=== PATIENT | female | born 2000 | race Caucasian/White ===

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

== ENCOUNTER 2021-01-16 12:20 | Outpatient (CLI) | payer OTHER, SELFPAY ==
[2021-01-16 12:53] LABS: Fetal Membrane Rupture (Rapid) Negative (Negative)
[2021-01-16 12:54] LABS: Microscopic, Urine URINE MICROSCOPIC (MICROSCOPIC)
[2021-01-16 12:57] LABS: Appearance,Urine CLEAR (Clear); Bilirubin,Urine Negative (Negative); Blood, Urine Negative (Negative); Color,Urine YELLOW (Yellow); Glucose,Urine (UA) Negative (Negative); Ketones,Urine Negative (Negative); Leukocyte Esterase,Urine Negative (Negative); Nitrate,Urine Negative (Negative); PH,Urine 7.5 (5.0-8.5); Protein,Urine Negative (Negative); Urobilinogen,Urine 0.2 EU/dl (0.2)
[2021-01-16 13:05] VITALS: BP 119/71; PULSE 92; RESP 20; TEMP 36.7; O2SAT 97
[2021-01-16 13:08] LABS: Benzodiazepines Screen,Urine Negative ng/ml (<200)
[2021-01-16 13:09] LABS: Amphetamine/Metha Screen,Urine Negative ng/ml (<1000); Bacteria,Urine Trace /lpf; Barbiturates Screen,Urine Negative ng/ml (<200); RBC,Urine Occasional #/hpf (0-3)
[2021-01-16 13:10] LABS: Cannabinoid Screen,Urine Negative ng/ml (<50)
[2021-01-16 13:11] LABS: Cocaine Screen,Urine Negative ng/ml (<300); Methadone Screen,Urine Negative ng/ml (<300)
[2021-01-16 13:12] LABS: Opiate Screen,Urine Negative ng/ml (<300); Phencyclidine Screen,Urine Negative ng/ml (<25)
== END 2021-01-16 15:41 | disposition home or self-care (01) ==
LOC: OBOUT 12:21 → OB 12:22
PROVIDERS: Nurse Practitioner Obstetrics & Gynecology; Physical Medicine & Rehabilitation; PCP Emergency Medicine; Visit Provider Obstetrics & Gynecology
DX: O26.892 Other specified pregnancy related conditions, second trimester (principal); Z3A.26 26 weeks gestation of pregnancy; R10.30 Lower abdominal pain, unspecified
CPT/HCPCS: 59025; 80305; 81001; 84112; 96365; G0463

== ENCOUNTER → 2021-01-17 12:13 | Outpatient (CLI) | payer OTHER, SELFPAY ==
[2021-01-17 12:41] LABS: Glucose,Fasting 84 mg/dl (74-100)
[2021-01-17 14:18] LABS: Glucose 1 Hour 131 mg/dL (74-100)
== END ==
PROVIDERS: Visit Provider Nurse Practitioner Obstetrics & Gynecology
DX: Z34.90 Encounter for supervision of normal pregnancy, unspecified, unspecified trimester (principal); Z3A.26 26 weeks gestation of pregnancy
CPT/HCPCS: 36415; 82951

== ENCOUNTER 2021-02-16 20:19 | Outpatient (CLI) | payer OTHER, SELFPAY ==
[2021-02-16 20:34] VITALS: BMI 20.2
[2021-02-16 20:44] LABS: Microscopic, Urine URINE MICROSCOPIC (MICROSCOPIC)
[2021-02-16 20:46] LABS: Appearance,Urine CLOUDY (Clear); Bilirubin,Urine Negative (Negative); Blood, Urine Negative (Negative); Color,Urine YELLOW (Yellow); Glucose,Urine (UA) Negative (Negative); Ketones,Urine TRACE (Negative); Leukocyte Esterase,Urine TRACE (Negative); Nitrate,Urine Negative (Negative); Protein,Urine Negative (Negative)
[2021-02-16 20:50] LABS: Amorphous Sediment,Urine 4+ /lpf; Squamous Epithelial Cell,Urine 20-50 #/hpf (0-5)
[2021-02-16 20:54] VITALS: BP 116/75; PULSE 97; RESP 18; TEMP 36.7; O2SAT 96; BMI 20.2
[2021-02-16 21:01] LABS: Barbiturates Screen,Urine Negative ng/ml (<200)
[2021-02-16 21:02] LABS: Benzodiazepines Screen,Urine Negative ng/ml (<200)
[2021-02-16 21:03] LABS: Amphetamine/Metha Screen,Urine Negative ng/ml (<1000); Cannabinoid Screen,Urine Negative ng/ml (<50)
[2021-02-16 21:04] LABS: Cocaine Screen,Urine Negative ng/ml (<300)
[2021-02-16 21:05] LABS: Methadone Screen,Urine Negative ng/ml (<300); Opiate Screen,Urine Negative ng/ml (<300)
[2021-02-16 21:06] LABS: Phencyclidine Screen,Urine Negative ng/ml (<25)
== END 2021-02-16 22:40 | disposition home or self-care (01) ==
LOC: OBOUT 20:19 → OB 20:20
PROVIDERS: Visit Provider Nurse Practitioner Obstetrics & Gynecology
DX: O26.893 Other specified pregnancy related conditions, third trimester (principal); Z3A.30 30 weeks gestation of pregnancy; M54.50 Low back pain, unspecified
CPT/HCPCS: 59025; 80305; 81001; 96365; G0463; J0595

== ENCOUNTER 2021-03-19 07:18 | Emergency (ER) | payer OTHER, SELFPAY ==
[2021-03-19 07:19] VITALS: BP 136/82; PULSE 115; RESP 16; TEMP 36.8; O2SAT 96; BMI 20.6
--- NOTE | 2021-03-19 07:27 | PC.NURSE ---
Patient ambulatory to restroom
[2021-03-19 07:50] LABS: Microscopic, Urine URINE MICROSCOPIC (MICROSCOPIC)
[2021-03-19 07:52] LABS: Appearance,Urine CLEAR (Clear); Bilirubin,Urine Negative (Negative); Blood, Urine Negative (Negative); Color,Urine YELLOW (Yellow); Glucose,Urine (UA) Negative (Negative); Ketones,Urine Negative (Negative); Leukocyte Esterase,Urine Negative (Negative); Nitrate,Urine Negative (Negative); PH,Urine 7.5 (5.0-8.5); Protein,Urine Negative (Negative); Urobilinogen,Urine 0.2 EU/dl (0.2)
[2021-03-19 07:54] LABS: Influenza A, PCR Not Detected (NotDetected); Influenza B, PCR Not Detected (NotDetected)
[2021-03-19 07:58] VITALS: BP 119/86; PULSE 89; O2SAT 95
--- NOTE | 2021-03-19 08:02 | HMH.EDGENADL ---
ED Disposition Clinical Impression: Bronchitis, Viral infection Disposition: Home, Self-Care Condition on Discharge: Good Referrals: Orville Spann MD [Primary Care Provider] - - Critical Care Critical Care Time: No Attestation: On 03/19/21, the high probability of a clinically significant, sudden or life threatening deterioration of the following system(s) required my full and direct attention, intervention and personal management. The time I documented below is in addition to time spent performing reported procedures but includes the following listed in this critical care notation. Medical Decision Making - Medical Records Medical records reviewed: Yes: I reviewed the patient's medical records. - Colt Inquiry Pt receiving controlled substance: No Vital Signs: 03/19/21 07:19 03/19/21 07:58 Temperature 98.2 F Temperature Source Oral Pulse Rate 89 Pulse Rate [Right Brachial] 115 H Respiratory Rate 16 Blood Pressure 119/86 Blood Pressure [Right Arm] 136/82 Blood Pressure Mean [Right Arm] 100 Blood Pressure Source [Right Arm] Automatic Cuff Blood Pressure Position [Right Arm] Sitting 02 Sat by Pulse Oximetry 96 95 Oxygen Delivery Method Room Air Room Air - Lab Data Lab Results 03/19/21 07:25: SARS-CoV-2 (PCR) Detected A, Influenza A Untype (PCR) Not detected, Influenza Type B (PCR) Not detected 03/19/21 07:40: Urine Color Yellow, Urine Appearance Clear, Urine pH 7.5, Ur Specific [place] 1.010, Urine Protein Negative, Urine Glucose (UA) Negative, Urine Ketones Negative, Urine Blood Negative, Urine Nitrate Negative, Urine Bilirubin Negative, Urine Urobilinogen 0.2, Ur Leukocyte Esterase Negative, Urine RBC None, Urine WBC 3-5, Ur Squamous Epith Cells 3-5, Urine Bacteria None General Adult HPI - General Chief complaint: Upper Respiratory Infection Stated complaint: cough, chest congestion, 34 wks Time Seen by Provider: 03/19/21 08:03 Mode of Arrival: Ambulatory Limitations: No Limitations Description of Symptoms (Recalled from ER Triage Doc. by RN): Pt advises she is 34 weeks and has been coughing for 3 days. Denies any fever, chills,aches, congestions. 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, 34 wks preg Onset (ago): day(s) Radiation: non-radiation Consistency: intermittent Relieving factors: none Exacerbating factors: none Associated symptoms: denies other symptoms - Related Data Home Medications Medication Instructions Recorded Confirmed labetalol 200 mg tablet 200 mg PO tab 12/20/20 03/15/21 vits no.130-ferrous fum 1 tab PO tab 12/20/20 03/15/21 27 mg iron-folic acid 800 mcg tablet Previous Rx's Medication Instructions Recorded fluconazole 100 mg tablet 100 mg PO DAILY #3 tab 12/12/20 famotidine 20 mg tablet 20 mg PO DAILY #90 tab 01/31/21 ferrous sulfate 325 mg (65 mg 325 mg PO DAILY #30 tab 02/15/21 iron) tablet ondansetron 4 mg disintegrating 4 mg PO Q6H PRN #30 tab 02/15/21 tablet promethazine 12.5 mg tablet 12.5 mg PO Q6H PRN #30 tab 02/15/21 labetalol 200 mg tablet See Rx Instructions .ROUTE 03/01/21 .COMPLEX #30 tab methylprednisolone 4 mg tablets in See Rx Instructions PO PER PKG DIR 03/01/21 a dose pack #21 tab Allergies Allergy/AdvReac Type Severity Reaction Status Date / Time No Known Allergies Allergy Verified 03/15/21 10:41 [facility] History - Hepatitis A Screen Drug use history?: No High risk sexual behaviors?: No History of sexually transmitted infection?: No Currently employed?: No Childcare worker?: No Do you have indoor plumbing?: Yes Do you have electricity?: Yes Attestation statement:: This patient has been screened for Hepatitis A risk factors. Medical History: Reports:: Palpitations Denies:: Cancer, Diabetes Mellitus Type 1, Diabetes Mellitus Type 2, MRSA, Seizures Other Medical History: Reports: Unexplained Bleeding Other [place]
[2021-03-19 08:24] LABS: Coronavirus 19, PCR Detected (NotDetected)
--- NOTE | 2021-03-19 08:29 | PC.NURSE ---
FHT 160
[2021-03-19 08:58] VITALS: BP 117/78; PULSE 96; RESP 20; TEMP 36.8; O2SAT 97
== END 2021-03-19 09:00 | disposition home or self-care (01) ==
PROVIDERS: Emergency Provider Emergency Medicine; PCP Emergency Medicine
DX: U07.1 COVID-19 (principal); J20.9 Acute bronchitis, unspecified; Z3A.34 34 weeks gestation of pregnancy
CPT/HCPCS: 81001; 99282; C9803; U0003; U0005

== ENCOUNTER → 2021-03-27 10:37 | Outpatient (CLI) | payer OTHER, SELFPAY ==
--- NOTE | 2021-03-27 10:46 | US_ITS ---
FINAL REPORT CLINICAL HISTORY: sga-- bpp and growth FINDINGS: There is a single live intrauterine gestation. Presentation is cephalic. The cervix is closed and measures 2.9 cm. Placenta is posterior/fundal grade 1-2. Cardiac activity is confirmed at 132 bpm. Four-chamber heart is noted. Chest and diaphragm are unremarkable. ABDOMEN: Both kidneys are unremarkable. Stomach is unremarkable. MARIEL: 7 cm MEASUREMENTS: ULTRASOUND AGE: 34 weeks 2 days. GESTATION AGE: 36 weeks 0 days. ESTIMATED WEIGHT: 2211 g GROWTH PERCENTILE: 5% BPD: 8.9 cm consistent with 35 weeks 6 days. OFD: 10.7 cm consistent with 33 weeks 6 days. HC: 30.8 cm consistent with 34 weeks 3 days. AC: 28.8 cm consistent with 32 weeks 6 days. FL: 6.5 cm consistent with 33 weeks 5 days. HC/AC: 1.07 CI: 83% FL/BPD: 74% FL/AC: 23% BREATHIN/2 MOVEMENT: 2/2 TONE: 2/2 FLUID VOLUME: 2/2 BPP SCORE: 8/8 IMPRESSION: Single living IUP with an ultrasound age of 34 weeks 2 days. BPP SCORE: 8/8 Reviewed, Interpreted and Dictated by Edinson Caldwell III, MD Transcribed by Kristen Odell Authenticated by Edinson Caldwell III, MD on 03/27/2021 02:32:20 PM [facility]
== END ==
PROVIDERS: PCP Emergency Medicine; Visit Provider Nurse Practitioner Obstetrics & Gynecology
DX: O36.5990 Maternal care for other known or suspected poor fetal growth, unspecified trimester, not applicable or unspecified (principal)
CPT/HCPCS: 76805; 76819

== ENCOUNTER → 2021-04-02 11:26 | Outpatient (CLI) | payer OTHER, SELFPAY | PROVIDERS: Visit Provider Nurse Practitioner Obstetrics & Gynecology | DX: Z34.90 Encounter for supervision of normal pregnancy, unspecified, unspecified trimester (principal) | CPT/HCPCS: 86403 ==

== ENCOUNTER 2021-04-11 05:02 | Inpatient (IN) | payer OTHER, SELFPAY ==
[2021-04-11 05:06] VITALS: BMI 20.9
[2021-04-11 05:58] LABS: Microscopic, Urine URINE MICROSCOPIC (MICROSCOPIC)
[2021-04-11 05:58] LABS: Influenza A, PCR Not Detected (NotDetected); Influenza B, PCR Not Detected (NotDetected)
[2021-04-11 06:15] LABS: Basophils % 0.4 % (0.1-2.0); Eosinophils # 0.1 K/mm3 (0.0-0.4); Eosinophils % 0.7 % (0.1-12.0); Hematocrit 38.3 % (37.0-47.0); Hemoglobin 13.4 g/dL (12.2-16.2); Lymphocytes # 1.9 K/mm3 (0.7-4.5); Mean Corpuscular HGB Conc 34.9 g/dL (31.8-35.4); Mean Corpuscular Hemoglobin 31.2 pg (27.0-31.2); Mean Corpuscular Volume 89.4 fl (81-99); Mean Platelet Volume 8.3 fl (7.4-10.4); Monocytes # 0.6 K/mm3 (0.1-1.0); Monocytes % 6.1 % (1.7-9.3); Neutrophils # 6.9 K/mm3 (1.8-7.8); Neutrophils % 72.8 % (37.0-80.0); Platelet Count 314 K/mm3 (142-424); Red Blood Count 4.29 M/mm3 (4.20-5.40); Red Cell Distribution Width 13.5 % (11.5-17.5); White Blood Count 9.5 K/mm3 (4.5-13.0)
[2021-04-11 06:17] LABS: Appearance,Urine CLEAR (Clear); Bilirubin,Urine Negative (Negative); Blood, Urine Negative (Negative); Color,Urine YELLOW (Yellow); Glucose,Urine (UA) Negative (Negative); Ketones,Urine Negative (Negative); Leukocyte Esterase,Urine Negative (Negative); Nitrate,Urine Negative (Negative); Protein,Urine TRACE (Negative); Specific Gravity, Urine >= 1.030 (1.005-1.030); Urobilinogen,Urine 0.2 EU/dl (0.2)
[2021-04-11 06:30] VITALS: BP 123/83; PULSE 116; RESP 18; TEMP 36.8; O2SAT 96; BMI 20.9
[2021-04-11 06:41] LABS: Calcium Oxalate Crystals,Urine Trace /lpf
[2021-04-11 06:42] LABS: Coronavirus 19, PCR Detected (NotDetected)
[2021-04-11 06:43] LABS: Amphetamine/Metha Screen,Urine Negative ng/ml (<1000)
[2021-04-11 06:44] LABS: Barbiturates Screen,Urine Negative ng/ml (<200)
[2021-04-11 06:45] LABS: Benzodiazepines Screen,Urine Negative ng/ml (<200); Cannabinoid Screen,Urine Negative ng/ml (<50)
[2021-04-11 06:46] LABS: Cocaine Screen,Urine Negative ng/ml (<300)
[2021-04-11 06:47] LABS: Methadone Screen,Urine Negative ng/ml (<300)
[2021-04-11 06:48] LABS: Opiate Screen,Urine Negative ng/ml (<300); Phencyclidine Screen,Urine Negative ng/ml (<25)
[2021-04-11 07:49] VITALS: BP 131/77; PULSE 91; RESP 17; TEMP 36.5; O2SAT 95
--- NOTE | 2021-04-11 09:16 | HMH.LABNOT ---
Labor Note - Subjective: Date: 04/11/21 Time: 09:16 regular contraction - Objective: NST:: Reactive Contractions:: every 2-3 minutes Cervical Dilation:: 2-3 Effacement:: 90% Station: -1 Membranes: artificially ruptured - Fetus: Monitoring?: Yes monitoring type:: External - Assessment: Labor progressing?: Yes Cephalopelvic disproportion?: No Patient Problems: All Active Problems Atypical chest pain (Acute) Reactive airway disease with acute exacerbation (Acute) (Acute) Bronchitis (Acute) Viral infection (Acute) COVID-19 (Acute) Small for gestational age fetus (Acute) Sinoatrial billie reentrant tachycardia (Acute) SVT (supraventricular tachycardia) (Acute) Exposure to COVID-19 virus (Acute) Syncope (Acute) Abnormal echocardiogram (Acute) Dizziness (Acute) Near syncope (Acute) Palpitations (Acute) Tachycardia (Acute) Abnormal ECG (Acute) Acute bronchitis (Acute) - Plan: Anesthesia for epidural?: No Continue to labor down?: Yes Plan for ?: No Continue to monitor?: Yes Start pushing?: No Continue pushing?: No Comment:: I ruptured her membranes and there was clear fluid. The cervix is 2 to 3 cm and thinned out. We will expect a vaginal delivery.
--- NOTE | 2021-04-11 09:19 | HMH.OBAPHP ---
OB - H&P: HPI Antepartum - History of Present Illness Chief complaint: Small for gestational age baby, Covid History of present illness: She is a 20-year-old 1 para 0 at 38+ weeks gestational age. She has a small for gestational age infant. It is around the 10th centile. As result of that we are electing to deliver her at 38 weeks. She also has tested positive for COVID. She did test positive about a month ago. I suspect she has residual Covid positive but we are treating her as a new Covid positive. She is group B streptococcus positive as well. - History of Present Criteria for establishing EDC:: LMP confirmed by 1st trimester US care: good care Ultrasounds: normal 1st trimester US, normal mid trimester US Obstetrical complications: growth restriction - Labs Blood type: O (+) positive Rubella: immune RPR/VDRL: nonreactive GBS status: positive HBsAG: negative [facility] History I have reviewed the patient's past medical history: Yes Medical History: Reports:: Palpitations Denies:: Cancer, Diabetes Mellitus Type 1, Diabetes Mellitus Type 2, MRSA, Seizures *Have you ever received a pneumonia vaccine?: No *Have you received a flu vaccine this season?: No Other Medical History: Reports: Unexplained Bleeding Other Surgeries: Yes: No Previous Surgery. No: Amputation: No Fractures: No - *Social History Smoking Status: Never smoker Tobacco Type: e-cigarettes # Packs/Day (cigarettes): 2 Alcohol Intake: never Alcohol Intake Frequency:: other Substance Use Type: denies use *Occupational Status:: unemployed Housing: house Household Members: significant other *Travel in the last 8 weeks: None Family Hx:: Unable to obtain Para: 0 Review of Systems - Review of Systems Review of systems:: pertinent systems reviewed and negative unless documented below Meds Home Medications Medication Instructions Recorded Confirmed Type labetalol 200 mg tablet 100 mg PO BID tab 12/20/20 04/11/21 History vits no.130-ferrous fum 1 tab PO DAILY tab 12/20/20 04/11/21 History 27 mg iron-folic acid 800 mcg tablet promethazine 12.5 mg tablet 12.5 mg PO Q6H PRN #30 tab 02/15/21 04/11/21 Rx RX: Famotidine [Acid Batch Operator] 20 mg PO DAILY 04/11/21 04/11/21 History RX: Ferrous Sulfate 325 mg PO DAILY 04/11/21 04/11/21 History Allergies Allergy/AdvReac Type Severity Reaction Status Date / Time No Known Allergies Allergy Verified 04/09/21 10:19 OB - H&P: Exam - Physical Exam Vital signs: Temp Pulse Resp BP Pulse Ox 97.7 F 91 H 17 131/77 95 04/11/21 07:49 04/11/21 07:49 04/11/21 07:49 04/11/21 07:49 04/11/21 07:49 - Constitutional no acute distress - Routine HEENT Exam Head: Present: normocephalic Eye: Present: EOMI, PERRL ENT: Present: mucous membranes moist - Routine Neck Exam Present: supple, full ROM - Routine Respiratory Exam Absent: accessory muscle use (good air entry bilaterally), respiratory distress, wheezes, crackles - Routine Cardiovascular Exam Present: RRR. Absent: murmur - Routine Abdominal Exam Present: soft, normoactive bowel sounds. Absent: tenderness, distended, guarding - Routine Rectal Exam Patient deferred: visual exam, digital exam - Routine Exam Patient deferred: external exam, groin exam, perineal exam - Routine Extremities Exam Present: full ROM. Absent: cyanosis, edema - Routine Skin Exam Present: intact. Absent: cyanosis - Routine Neurological Exam Present: alert, oriented X3 - Routine Psychiatric Exam Present: normal affect OB - Results - Labs Labs: Short CBC 04/11/21 Range/Units 05:45 WBC 9.5 (4.5-13.0) K/mm3 Hgb 13.4 (12.2-16.2) g/dL Hct 38.3 (37.0-47.0) % Plt Count 314 (142-424) K/mm3 Urine 04/11/21 Range/Units 05:45 Urine Color Yellow (Yellow) Urine Appearance Clear (Clear) Urine pH 6.0 (5.0-8.5) Ur Specific [place] >= 1.03
--- NOTE | 2021-04-11 09:56 | P.PN_ITS ---
[facility] Anesthesia Checklist - Patient Identification Patient Identification: Arm Band - Structural Data Admitted From: Inpatient Planned Operative Procedure/s: Labor Epidural Consent for Planned Operative Procedure(s) Verified: Yes Verified Documents: Surgical Consent, History and Physical - NPO Status Verified Time NPO: 00:00 - Additional verifications Anesthesia Reactions: No - Airway Assessment C-Spine Mobility Assessed: Yes TMJ Mobility Assessed: Yes Dentition: Good Dentition - Neurological Assessment Level of Consciousness: Awake, Alert - Anesthesia Plan Anesthesia Risk discussed: Yes Anesthesia Plan: Verified ASA Class: II Anesthesia Type: Epidural [facility] History I have reviewed the patient's past medical history: Yes Medical History: Reports:: Palpitations Denies:: Cancer, Diabetes Mellitus Type 1, Diabetes Mellitus Type 2, MRSA, Seizures *Have you ever received a pneumonia vaccine?: No *Have you received a flu vaccine this season?: No Other Medical History: Reports: Unexplained Bleeding Anesthesia experience/problems:: nac Other Surgeries: Yes: No Previous Surgery. No: Amputation: No Fractures: No - *Social History Smoking Status: Never smoker Tobacco Type: e-cigarettes # Packs/Day (cigarettes): 2 Alcohol Intake: never Alcohol Intake Frequency:: other Substance Use Type: denies use *Occupational Status:: unemployed Housing: house Household Members: significant other *Travel in the last 8 weeks: None Family Hx:: Unable to obtain Para: 0
--- NOTE | 2021-04-11 12:00 | HMH.LABNOT ---
Labor Note - Subjective: Date: 04/11/21 Time: 12:00 regular contraction - Objective: NST:: Reactive Contractions:: every 2-3 minutes Cervical Dilation:: 4 Effacement:: 100% Station: 0 Membranes: artificially ruptured - Fetus: Monitoring?: Yes monitoring type:: External - Assessment: Labor progressing?: Yes Cephalopelvic disproportion?: No Patient Problems: All Active Problems Atypical chest pain (Acute) Reactive airway disease with acute exacerbation (Acute) (Acute) Bronchitis (Acute) Viral infection (Acute) COVID-19 (Acute) First in adolescent 16 years of age or older (Acute) Small for gestational age fetus (Acute) Sinoatrial billie reentrant tachycardia (Acute) SVT (supraventricular tachycardia) (Acute) Exposure to COVID-19 virus (Acute) Syncope (Acute) Abnormal echocardiogram (Acute) Dizziness (Acute) Near syncope (Acute) Palpitations (Acute) Tachycardia (Acute) Abnormal ECG (Acute) Acute bronchitis (Acute) - Plan: Anesthesia for epidural?: Yes Continue to labor down?: Yes Plan for ?: No Continue to monitor?: Yes Start pushing?: No
[2021-04-11 12:03] VITALS: BP 135/89; PULSE 90; RESP 18; TEMP 36.6; O2SAT 99
--- NOTE | 2021-04-11 13:56 | HMH.LABNOT ---
Labor Note - Subjective: Date: 04/11/21 Time: 13:56 regular contraction - Objective: NST:: Reactive Contractions:: every 2-3 minutes Cervical Dilation:: 5 Effacement:: 100% Station: 0 Membranes: artificially ruptured - Fetus: Monitoring?: Yes monitoring type:: External - Assessment: Labor progressing?: Yes Cephalopelvic disproportion?: No Patient Problems: All Active Problems Atypical chest pain (Acute) Reactive airway disease with acute exacerbation (Acute) (Acute) Bronchitis (Acute) Viral infection (Acute) COVID-19 (Acute) First in adolescent 16 years of age or older (Acute) Small for gestational age fetus (Acute) Sinoatrial billie reentrant tachycardia (Acute) SVT (supraventricular tachycardia) (Acute) Exposure to COVID-19 virus (Acute) Syncope (Acute) Abnormal echocardiogram (Acute) Dizziness (Acute) Near syncope (Acute) Palpitations (Acute) Tachycardia (Acute) Abnormal ECG (Acute) Acute bronchitis (Acute) - Plan: Anesthesia for epidural?: Yes Continue to labor down?: Yes Plan for ?: No Continue to monitor?: Yes Start pushing?: No
[2021-04-11 16:00] VITALS: BP 135/79; PULSE 80; RESP 18; TEMP 36.6; O2SAT 99
--- NOTE | 2021-04-11 16:20 | HMH.DN ---
- Delivery Note Delivery Date:: 04/11/21 Delivery Time:: 15:55 Anesthesia Type: Epidural Was labor medically induced?: Yes Induction method: per pitocin protocol Gestational age (weeks): 38 Infant delivered prior to 39 weeks?: Yes Justification for early elective delivery:: IUGR Infant Gender: Male at 1 minute: 9 at 5 minutes: 9 LAC or MLE?: LAC Delivery Procedure:: She is a 20-year-old 1 para 0 at 38+ weeks gestational age. She had an IUGR infant and as result of that she was brought in for induction of labor at 38 weeks. She was started on IV oxytocin had her membranes ruptured. Under labor epidural progressed to full dilation and delivered spontaneously a liveborn male child at 3:55 PM in the afternoon of April 11, 2021. On deliver the head it was noted that there was a loose nuchal cord which was easily reduced. This was followed by the anterior shoulder and the rest the 's body atraumatically. The baby cried spontaneously and the oropharynx and nasopharynx were bulb suction. The baby was vigorous. We allowed the cord to continue to pulsate for approximately 1 minute. The cord was then doubly clamped and cut and the infant was placed on the mother's abdomen for further care. The nurses assigned Apgars of 9 at 1 minute and 9 at 5 minutes. We then obtained cord blood. She received IV oxytocin and using gentle traction on the cord and countertraction on the fundus I was able to easily deliver the placenta at 3:57 PM. It had a normal three-vessel cord. She had a small posterior first-degree vaginal laceration that was repaired with interrupted 3-0 Vicryl Rapide suture. She has O+ blood, she is rubella immune and was group B streptococcus positive. She did receive IV antibiotics while in labor. She plans to bottlefeed. Her estimated blood loss was approximately 150 cc. Laceration:: vaginal Placental Delivery Description: Spontaneous
[2021-04-12 06:19] LABS: Hematocrit 35.1 % (37.0-47.0); Hemoglobin 12.3 g/dL (12.2-16.2)
--- NOTE | 2021-04-12 08:30 | HMH.ACPN2 ---
Internal Medicine - PN: Subj *Date: 04/12/21 *Time: 08:30 Interval history: She is 1 day from a vaginal delivery. She is doing well. She does have a cough and has been taking Robitussin. She was positive for Covid a few weeks ago. Recent test was negative. She is bottlefeeding. Her lochia is normal. Exam Vital signs and Labs for Last 24 Hours: Temp Pulse Resp BP Pulse Ox 97.8 F 80 18 135/79 99 04/11/21 16:00 04/11/21 16:00 04/11/21 16:00 04/11/21 16:00 04/11/21 16:00 Laboratory Results - last 24 hr 04/12/21 05:57: Hgb 12.3, Hct 35.1 L I & O for Last 24 hours: Intake & Output 04/09/21 04/10/21 04/11/21 04/12/21 11:59 11:59 11:59 11:59 Weight 126 lb - Constitutional no acute distress - *Routine HEENT Exam Head: Present: normocephalic Eye: Present: EOMI, PERRL ENT: Present: mucous membranes moist Assessment and Plan (1) First in adolescent 16 years of age or older Status: Acute Category: Medical Code(s): Z34.00 - Encounter for supervision of normal first , unspecified trimester (2) COVID-19 Status: Acute Category: Medical Code(s): U07.1 - COVID-19 (3) Small for gestational age fetus Status: Acute Category: Medical - Assessment and plan all Dx Assessment and Plan for all problems:: She is doing well. We will plan to send her home tomorrow. She will continue with the Robitussin for her cough.
--- NOTE | 2021-04-12 11:06 | SW/DCPLANNER ---
Addendum entered by Jessica Kohler 04/13/21 09:40: I contacted Katie avila/ [facility] and she will follow up with patient regarding services. Original Note: I received a referral for this patient regarding: teenage . I visit with patient this morning: infants father (Bobby Hall 03/28/1999) was present at time of my visit. was born on 04/11/2020 (Juaquin Hall). Patient does not have a history of drug use. Patient, father, fathers parents (dAán and Tracey Hall) will reside at [address] [place] [address]. Patients contact number is [phone]. Patient is established with [facility] and is interested in HANDS program. I will contact Lilia with [facility] to reach out to this patient at discharge. Patient stated that she has the following items for infant: crib, carseat, clothing, diapers and will be bottle feeding. Patient is expected to discharge home tomorrow 04/13/21 pending no setbacks.
--- NOTE | 2021-04-13 08:16 | HMH.OBDCSM ---
General - General Admission date:: 04/11/21 Discharge date: 04/13/21 HPI - History of Present Illness History of present illness: She is a 20-year-old 1 para 0 at 38+ weeks gestational age. She had a small for gestational age infant and as result of that was brought in for induction of labor at term. Hospital Course Hospital Course: She was started on IV oxytocin had her membranes ruptured. Under labor epidural she progressed to full dilation and delivered spontaneously a liveborn male child at 3:55 PM in the afternoon of April 11, 2021. Baby was a liveborn male child weighing 6 pounds 4 ounces and was 19 inches long. He had Apgars of 9 at 1 minute and 9 at 5 minutes. She was group B streptococcus positive and did receive IV antibiotics while in labor. She has done well and has remained afebrile throughout her hospitalization. She is eating and drinking and ambulating. She is bottlefeeding. Her lochia is normal. She has O+ blood, she is rubella immune and was group B streptococcus positive. 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 She was given the usual instructions with respect to limiting her activity, driving and sexual activity. She was given a shot of Depo-Provera prior to discharge for control. Her condition on discharge is stable and improved. Rhogam Administration: Not Indicated Objective Vital signs: Temp Pulse Resp BP Pulse Ox 97.8 F 80 18 135/79 99 04/11/21 16:00 04/11/21 16:00 04/11/21 16:00 04/11/21 16:00 04/11/21 16:00 no acute distress - *Routine HEENT Exam Head: Present: normocephalic Eye: Present: EOMI, PERRL ENT: Present: mucous membranes moist DS: Diagnosis - Discharge Diagnosis (1) First in adolescent 16 years of age or older Status: Acute (2) COVID-19 Status: Acute (3) Small for gestational age fetus Status: Acute Discharge Plan - Patient Discharge Instructions ACTIVITY: No heavy lifting DIET: continue same diet Additional Instructions: *Nothing in the Vagina for 6 weeks* *No strenuous activity* *No heavy lifting* Patient Instructions: Kegel Exercises, Depression, Hemorrhage, DI for Labor and Delivery, Vaginal , DI for Pre-eclampsia, [facility] Post Discharge Instructions, Preventing the Spread of Coronavirus Discharge Instructions - Follow up Plan Follow up with: Stephon Christianson MD [Primary Care Provider] - Disposition: Home, Self-Care Condition at discharge:: Stable Home Medications: Home Medications Medication Instructions Recorded Confirmed Type labetalol 200 mg tablet 100 mg PO BID tab 12/20/20 04/11/21 History vits no.130-ferrous fum 1 tab PO DAILY tab 12/20/20 04/11/21 History 27 mg iron-folic acid 800 mcg tablet promethazine 12.5 mg tablet 12.5 mg PO Q6H PRN #30 tab 02/15/21 04/11/21 Rx Famotidine [Acid Exhibit Builder] 20 mg PO DAILY 04/11/21 04/11/21 History Ferrous Sulfate 325 mg PO DAILY 04/11/21 04/11/21 History Prescriptions/Medication Reconciliation: Continued vits no.130-ferrous fum 27 mg iron-folic acid 800 mcg tablet 1 tab PO DAILY tab labetalol 200 mg tablet 100 mg PO BID tab promethazine 12.5 mg tablet 12.5 mg PO Q6H PRN #30 tab PRN Reason: nausea and vomiting Famotidine [Acid Exhibit Builder] 20 mg PO DAILY Ferrous Sulfate 325 mg PO DAILY - Problem Reconciliation Problems Reviewed?: Yes
[2021-04-13 09:22] VITALS: BP 132/72; PULSE 82; RESP 18; TEMP 37; O2SAT 96
== END 2021-04-13 11:20 | disposition home or self-care (01) | DRG 805 ==
PROVIDERS: Admitting Provider Nurse Practitioner Obstetrics & Gynecology; PCP Nurse Practitioner Obstetrics & Gynecology; Visit Provider Nurse Practitioner Obstetrics & Gynecology
DX: O36.5930 Maternal care for other known or suspected poor fetal growth, third trimester, not applicable or unspecified (principal); U07.1 COVID-19; Z37.0 Single live birth; O98.52 Other viral diseases complicating childbirth; Z3A.38 38 weeks gestation of pregnancy; O99.824 Streptococcus B carrier state complicating childbirth
CPT/HCPCS: 59409; 36415; 59025; 80305; 81001; 85014; 85018; 85025; 86850; 94761; C9803; G0283; J0290; J1050; J2405; U0003; U0005

== ENCOUNTER → 2021-06-13 12:04 | Outpatient (CLI) | payer OTHER, SELFPAY ==
[2021-06-13 12:38] LABS: Basophils # 0.2 K/mm3 (0-0.2); Basophils % 2.6 % (0.1-2.0); Eosinophils # 0.1 K/mm3 (0.0-0.4); Eosinophils % 1.2 % (0.1-12.0); Hematocrit 45.9 % (37.0-47.0); Hemoglobin 14.6 g/dL (12.2-16.2); Lymphocytes # 2.2 K/mm3 (0.7-4.5); Lymphocytes % 32.5 % (10-50); Mean Corpuscular HGB Conc 31.8 g/dL (31.8-35.4); Mean Corpuscular Hemoglobin 30.1 pg (27.0-31.2); Mean Corpuscular Volume 94.7 fl (81-99); Mean Platelet Volume 8.5 fl (7.4-10.4); Monocytes # 0.5 K/mm3 (0.1-1.0); Monocytes % 7.5 % (1.7-9.3); Neutrophils # 3.8 K/mm3 (1.8-7.8); Neutrophils % 56.2 % (37.0-80.0); Platelet Count 466 K/mm3 (142-424); Red Blood Count 4.85 M/mm3 (4.20-5.40); Red Cell Distribution Width 13.2 % (11.5-17.5); White Blood Count 6.7 K/mm3 (4.5-13.0)
[2021-06-13 13:11] LABS: Chloride 108 mmol/L (98-107)
[2021-06-13 13:12] LABS: Potassium 4.1 mmoL/L (3.5-5.1); Sodium 140 mmol/L (136-145)
[2021-06-13 13:14] LABS: Blood Urea Nitrogen 7 mg/dl (7-17); Estimated Glomerular Filt Rate 108 ml/min (>60); GFR (African American) 130 ML/MIN (>60)
[2021-06-13 13:15] LABS: Anion Gap 15.1 mEq/L (5-15); Calcium 9.4 mg/dl (8.4-10.2); Carbon Dioxide 21 mmol/L (22.0-30.0); Glucose 80 mg/dl (74-100)
[2021-06-13 13:45] LABS: Free Thyroxine Index 3.5 ug/dL (5.93-13.13); T4 (Thyroxine) 12.4 ug/dl (5.53-11.0); Triiodothryronine (T3) Uptake 28 % (23.5-40.5)
[2021-06-13 13:58] LABS: Thyroid Stimulating Hormone 0.25 uIU/mL (0.465-4.68)
== END ==
PROVIDERS: Visit Provider Physician Assistant
DX: R07.89 Other chest pain (principal); R00.0 Tachycardia, unspecified; I47.1 Supraventricular tachycardia; R55 Syncope and collapse; R93.1 Abnormal findings on diagnostic imaging of heart and coronary circulation; R94.31 Abnormal electrocardiogram [ECG] [EKG]
CPT/HCPCS: 36415; 80048; 84436; 84443; 84479; 85025

== ENCOUNTER → 2021-09-17 13:53 | Outpatient (CLI) | payer OTHER, SELFPAY ==
--- NOTE | 2021-09-17 13:57 | US_ITS ---
FINAL REPORT TECHNIQUE: Sonographic images of the thyroid gland were obtained in the longitudinal and transverse planes. CLINICAL HISTORY: hx hyperthyroid FINDINGS: The right lobe measures 1.1 x 4.2 x 7.8 cm. There is a less than 5 mm colloid cyst. The left lobe measures 1.1 x 3.8 x 0.8 cm. There is a small colloid cyst. The isthmus measures 3 mm which is normal. No solid nodules are identified. IMPRESSION: Bilateral colloid cysts which are benign. No solid nodules identified. Reviewed, Interpreted and Dictated by Almita Mendoza MD Transcribed by Bisi Huynh Authenticated and . [facility]
[2021-09-17 16:16] LABS: Thyroid Stimulating Hormone 0.41 uIU/mL (0.465-4.68)
== END ==
PROVIDERS: PCP Emergency Medicine; Visit Provider Otolaryngology
DX: E05.90 Thyrotoxicosis, unspecified without thyrotoxic crisis or storm (principal)
CPT/HCPCS: 36415; 76536; 84443

== ENCOUNTER 2021-10-01 11:15 | Emergency (ER) | payer OTHER, SELFPAY ==
--- NOTE | 2021-10-01 11:24 | HMH.EDUTC ---
[facility] [place] Clinical Impression: UTI (urinary tract infection) Qualifiers: Urinary tract infection type: acute cystitis Hematuria presence: with hematuria Qualified Code(s): N30.01 - Acute cystitis with hematuria Disposition: Home, Self-Care Condition on Discharge: Good Instructions: Urine Culture, DI for Urinary Tract Infection (UTI), Phenazopyridine Additional Instructions: Drink plenty of fluids. Take tylenol or ibuprofen for pain or fever. Take the medications as directed. Follow up with your regular doctor. GO TO THE ER FOR ANY WORSENING SYMPTOMS The pyridium will make your urine turn orange, this is an expected side effect. It will stain your clothes if it comes into contact with them. We will culture the urine. That will tell what bacteria is causing your infection and which antibiotics will treat it best. Sometimes the first antibiotic we prescribe turns out to not work against different bacteria. So, make sure you follow up within 3 days if you are not getting better. Prescriptions: Ondansetron [Zofran 4mg ODT] 4 mg PO Q8HP PRN #12 tab PRN Reason: Nausea Transmission Status: Received by [facility] Sulfamethoxazole/Trimethoprim [Bactrim DS tablet] 1 each PO BID 7 Days #14 tab Transmission Status: Received by [facility] Phenazopyridine HCl [Pyridium 200mg Tablet] 200 pow PO TID #6 tab Transmission Status: Received by [facility] Referrals: Orville Spann MD [Primary Care Provider] - Time of Disposition: 11:59 Medical Decision Making - Medical Records Medical records reviewed: No: I reviewed the patient's medical records. - Colt Inquiry Pt receiving controlled substance: No Vital Signs: 10/01/21 11:38 10/01/21 12:04 Temperature 100.5 F H 100.5 F H Temperature Source Oral Pulse Rate 116 H Pulse Rate [Left] 116 H Respiratory Rate 15 15 Blood Pressure 122/64 Blood Pressure [Right Arm] 122/64 Blood Pressure Mean [Right Arm] 83 02 Sat by Pulse Oximetry 97 - Lab Data Lab Results 10/01/21 12:07: Urine Color Dark yellow, Urine Appearance Cloudy, Urine pH 6.0, Ur Specific [place] 1.020, Urine Protein 1+, Urine Glucose (UA) Negative, Urine Ketones Trace, Urine Blood Trace, Urine Nitrate Positive A, Urine Bilirubin 1+ A, Urine Urobilinogen 1, Ur Leukocyte Esterase 2+ A Orders (Tests/Meds): ED MEDICATIONS Discontinued Medications Generic Name Dose Route Start Last Admin Trade Name Inge PRN Reason Stop Dose Admin Ceftriaxone Sodium 1 gm 10/01/21 11:44 10/01/21 11:57 Ceftriaxone 1gm Vial IM 10/01/21 11:45 1 gm ONCE ONE Administration Lidocaine HCl 0 ml 10/01/21 11:44 10/01/21 11:57 Lidocaine 1% 5ml Pf Vial IM 10/01/21 11:45 2 ml ONCE ONE Administration ORDERS Category Date Time Status Urine Culture Stat Micro 10/01/21 11:30 Results [facility] [place] - General Stated complaint: right side pains/back pains, no accident Time Seen by Provider: 10/01/21 11:24 - History of Present Illness Provider Complaint: She c/o urinary frequency and right sided low back pain for the past 2 days. She has had chilling but no documented fever. - Related Data Home Medications Medication Instructions Recorded Confirmed methimazole 5 mg tablet 5 mg PO TID tab 08/30/21 08/30/21 Previous Rx's Medication Instructions Recorded medroxyprogesterone 150 mg/mL 150 mg IM [id number] #1 ml 04/27/21 intramuscular suspension diltiazem HCl 180 mg 180 mg PO DAILY #30 cap 08/13/21 capsule,extended release 24 hr Ondansetron [Zofran 4mg ODT] 4 mg PO Q8HP PRN #12 tab 10/01/21 Phenazopyridine HCl [Pyridium 200 pow PO TID #6 tab 10/01/21 200mg Tablet] Sulfamethoxazole/Trimethoprim 1 each PO BID 7 Days #14 tab 10/01/21 [Bactrim DS tablet] Allergies Allergy/AdvReac Type Severity Reaction Status Date / Time No Known Allergies Allergy Verified 10/01/21 11:42 [facility] History
[2021-10-01 11:38] VITALS: BP 122/64; PULSE 116; RESP 15; TEMP 38.1; O2SAT 97; BMI 16.0
[2021-10-01 12:04] VITALS: BP 122/64; PULSE 116; RESP 15; TEMP 38.1
[2021-10-01 12:08] LABS: Apearance,Urine Cloudy (Clear); Bilirubin,Urine 1+ (Negative); Blood, Urine Trace (Negative); Color,Urine Dark Yellow (Yellow); Glucose,Urine (UA) Negative (Negative); Ketones,Urine TRACE (Negative); Protein,Urine 1+ (Negative); Urobilinogen,Urine 1 EU/dl (0.2)
[2021-10-01 12:09] LABS: UTC Leukocyte Esterase,Urine 2+ (Negative); UTC Nitrate,Urine Positive (Negative)
== END 2021-10-01 12:04 | disposition home or self-care (01) ==
PROVIDERS: Emergency Provider Nurse Practitioner Family; PCP Emergency Medicine
DX: N30.01 Acute cystitis with hematuria (principal); M54.50 Low back pain, unspecified; R35.0 Frequency of micturition; R00.2 Palpitations; I47.1 Supraventricular tachycardia; E03.9 Hypothyroidism, unspecified; Z79.52 Long term (current) use of systemic steroids; Z79.899 Other long term (current) drug therapy; Z87.891 Personal history of nicotine dependence
CPT/HCPCS: 81003; 87086; 87088; 87186; 96372; 99213; G0463; J0696

== ENCOUNTER 2021-10-30 10:52 | Emergency (ER) | payer OTHER, SELFPAY ==
[2021-10-30 10:54] VITALS: BP 120/89; PULSE 120; RESP 15; TEMP 36.8; O2SAT 97; BMI 16.0
--- NOTE | 2021-10-30 11:06 | XR_ITS ---
FINAL REPORT CLINICAL HISTORY: pain COMPARISON: May 16, 2020 FINDINGS: Two views of the chest were obtained. A loop recorder is present. The heart size and pulmonary vascularity are within normal limits. The mediastinum is normal. No acute pulmonary abnormality is identified. There is no pneumothorax. The bony thorax is intact. IMPRESSION: No active cardiopulmonary disease. Reviewed, Interpreted and Dictated by Edinson Caldwell III, MD Transcribed by Kristen Odell Authenticated and [facility]
--- NOTE | 2021-10-30 11:16 | ECG_ITS ---
APPROVED REPORT Exam: Resting ECG HR:106 bpm ECG Measurements Heart Rate 106 AXES TN 116 P 68 QRSd 74 QRS 77 QT 327 T -3 QTc 389 Conclusion SINUS TACHYCARDIA WITH SHORT TN INTERVAL Left atrial abnormality NSSTTW changes ABNORMAL ECG UNCONFIRMED REPORT Electronically signed by : Jeremy Booth MD 10/30/2021 21:07:37
[2021-10-30 11:21] LABS: Alanine Aminotransferase 40 U/L (12-78); Albumin Level 4.6 g/dl (3.5-5.0); Albumin/Globulin Ratio 1.6 (1.1-1.8); Alkaline Phosphatase 107 U/L (38-126); Anion Gap 13.6 mEq/L (5-15); Aspartate Amino Transferase 38 U/L (14-36); Bilirubin,Total 1.1 mg/dl (0.2-1.3); Blood Urea Nitrogen 14 mg/dl (7-17); Calcium 9.5 mg/dl (8.4-10.2); Carbon Dioxide 19 mmol/L (22.0-30.0); Chloride 108 mmol/L (98-107); Creatinine Clearance Estimated 88 mL/min (50-200); Estimated Glomerular Filt Rate 107 ml/min (>60); GFR (African American) 129 ML/MIN (>60); Globulin 2.9 g/dL (1.3-3.2); Glucose 113 mg/dl (74-100); Potassium 3.6 mmoL/L (3.5-5.1); Sodium 137 mmol/L (136-145); Total Protein,Serum 7.5 g/dl (6.3-8.2)
[2021-10-30 11:23] LABS: Basophils # 0.1 K/mm3 (0-0.2); Basophils % 0.8 % (0.1-2.0); Eosinophils # 0.1 K/mm3 (0.0-0.4); Eosinophils % 1.4 % (0.1-12.0); Hematocrit 49.2 % (37.0-47.0); Hemoglobin 15.9 g/dL (12.2-16.2); Lymphocytes # 0.6 K/mm3 (0.7-4.5); Lymphocytes % 6.2 % (10-50); Mean Corpuscular HGB Conc 32.2 g/dL (31.8-35.4); Mean Corpuscular Hemoglobin 29.4 pg (27.0-31.2); Mean Corpuscular Volume 91.2 fl (81-99); Mean Platelet Volume 7.9 fl (7.4-10.4); Monocytes # 0.4 K/mm3 (0.1-1.0); Monocytes % 4.1 % (1.7-9.3); Neutrophils # 7.9 K/mm3 (1.8-7.8); Neutrophils % 87.4 % (37.0-80.0); Platelet Count 433 K/mm3 (142-424); Red Cell Distribution Width 12.8 % (11.5-17.5); White Blood Count 9.1 K/mm3 (4.5-13.0)
[2021-10-30 11:25] LABS: MANUAL DIFFERENTIAL MANUAL DIFFERENTIAL (MANUAL DIFF)
[2021-10-30 11:38] LABS: Troponin I < 0.01 ng/ml (0.00-0.034)
[2021-10-30 11:55] LABS: Coronavirus 19, PCR Not Detected (NotDetected); Eosinophils % 1 % (0-3); Influenza A, PCR Not Detected (NotDetected); Influenza B, PCR Not Detected (NotDetected); Lymphocytes % 8 % (10-50); Monocytes % 3 % (2-9); Neutrophils % 88 % (42-76); Platelet Estimate Normal; RBC Morphology Normal; Total Cells Counted 100
--- NOTE | 2021-10-30 12:53 | HMH.EDNVD ---
Discharge Plan Disposition Patient Disposition: Home, Self-Care Condition: Fair Prescriptions Prescriptions: New ondansetron [ondansetron] 4 mg tablet,disintegrating 4 mg PO TIDP PRN (Reason: Nausea) Qty: 10 0RF No Action medroxyprogesterone [Depo-Provera] 150 mg/mL suspension 150 mg IM [id number] Qty: 1 3RF methimazole 5 mg tablet 5 mg PO TID diltiazem HCl 240 mg capsule,extended release 24hr 240 mg PO DAILY Qty: 30 2RF sulfamethoxazole-trimethoprim 1 EACH tablet 1 each PO BID 7 Days Qty: 14 0RF ondansetron 4 MG tablet,disintegrating 4 mg PO Q8HP PRN (Reason: Nausea) Qty: 12 0RF Referrals Follow up/Referrals: Orville Spann MD [Primary Care Provider] - See instructions Clinical Impressions Clinical Impression: Acute viral syndrome Instructions Patient Instructions: DI for Nausea -- Adult Discharge ED Provider: Stanton Jarrett Nausea/Vomiting/Diarrhea HPI General Chief complaint: Nausea/Vomiting/Diarrhea Stated complaint: vomiting, stomach pain, slight chest pain Time Seen by Provider: 10/30/21 12:00 Mode of Arrival: Ambulatory Source of Information: Patient Limitations: No Limitations Description of Symptoms (Recalled from ER Triage Doc. by RN): c/o vomiting since last night with slight chest pain, pt states that she just wants to know if she is contagious. History of Present Illness HPI Narrative: Patient is a 21-year-old female who presents with concern for chest pain, vomiting. She says that she has a history of SVT and that she has been unable to take her medications due to vomiting. She says that she also has fever and chills. She denies any pain with deep inspiration. She is currently wearing a loop recorder due to her previous incidences of SVT. She says that she has a 6-month at home and was just concerned that she had COVID and could be contagious so she went to come in for evaluation. Related Data Home Medications Medication Instructions Recorded Confirmed methimazole 5 mg tablet 5 mg PO TID 08/30/21 10/12/21 Previous Rx's Medication Instructions Recorded medroxyprogesterone 150 mg/mL 150 mg IM [id number] #1 mL 04/27/21 intramuscular suspension (Depo-Provera) ondansetron 4 mg disintegrating 4 mg PO Q8HP PRN Nausea #12 tabs 10/01/21 tablet sulfamethoxazole 800 1 each PO BID 7 days #14 tabs 10/01/21 mg-trimethoprim 160 mg tablet diltiazem HCl 240 mg 240 mg PO DAILY #30 caps 10/11/21 capsule,extended release 24 hr ondansetron 4 mg disintegrating 4 mg PO TIDP PRN Nausea #10 tabs 10/30/21 tablet Allergies Allergy/AdvReac Type Severity Reaction Status Date / Time No Known Allergies Allergy Verified 10/12/21 10:39 [facility] Medical History (Updated 10/30/21 @ 14:04 by Stanton Jarrett MD) Hyperthyroidism SVT (supraventricular tachycardia) Social History Smoking Status: Current every day smoker tobacco type: e-cigarettes second hand exposure: No alcohol intake: never substance use type: denies use current occupational status: unemployed Travel in the last 8 weeks: None household members: significant other housing: house ROS Obtained: Yes All systems reviewed & no additional complaints except as documented A 14 point review of system was obtained and otherwise negative except per HPI Physical Exam General General appearance: alert and in no apparent distress Head Head exam: atraumatic, normocephalic and normal inspection Eye Eye exam: Present normal appearance, PERRL and EOMI ENT ENT exam: Present normal exam, normal oropharynx, mucous membranes moist, TM's normal bilaterally and normal external ear exam Neck Neck exam: Present normal inspection, full ROM and trachea midline; Absent meningismus or lymphadenopathy Chest Chest inspection: Present normal inspection and symmetric chest wall rise; Absent tenderness Respiratory Respiratory exam: Present normal lung sounds bilaterally; Absent res
--- NOTE | 2021-10-30 13:10 | PC.NURSE ---
urine sent to lab
[2021-10-30 13:14] LABS: Microscopic, Urine URINE MICROSCOPIC (MICROSCOPIC)
[2021-10-30 13:15] LABS: Appearance,Urine CLEAR (Clear); Blood, Urine Negative (Negative); Color,Urine YELLOW (Yellow); Glucose,Urine (UA) Negative (Negative); Ketones,Urine 2+ (Negative); Leukocyte Esterase,Urine TRACE (Negative); Nitrate,Urine Negative (Negative); Protein,Urine TRACE (Negative); Specific Gravity, Urine >= 1.030 (1.005-1.030); Urobilinogen,Urine 0.2 EU/dl (0.2)
[2021-10-30 13:33] LABS: Bilirubin,Urine 1+ (Negative)
[2021-10-30 13:34] LABS: Bacteria,Urine 1+ /lpf; Mucus,Urine 1+ /lpf
[2021-10-30 14:38] VITALS: BP 129/81; PULSE 98; RESP 18; TEMP 36.8; O2SAT 97
== END 2021-10-30 14:40 | disposition home or self-care (01) ==
PROVIDERS: Emergency Provider Student in an Organized Health Care Education/Training Program; PCP Emergency Medicine
DX: R07.9 Chest pain, unspecified (principal); R00.2 Palpitations; R11.2 Nausea with vomiting, unspecified; R19.7 Diarrhea, unspecified; Z20.822 Contact with and (suspected) exposure to COVID-19; I47.1 Supraventricular tachycardia; E03.9 Hypothyroidism, unspecified; F17.290 Nicotine dependence, other tobacco product, uncomplicated; Z79.52 Long term (current) use of systemic steroids; Z79.899 Other long term (current) drug therapy
CPT/HCPCS: 71046; 80053; 81001; 84484; 85007; 85025; 93005; 96361; 96374; 96376; 99285; C9803; J2405; U0003; U0005

== ENCOUNTER → 2021-11-07 14:28 | Outpatient (CLI) | payer OTHER, SELFPAY ==
[2021-11-07 15:51] LABS: Free T4 (Free Thyroxine) 1.19 ng/dl (0.78-2.19)
[2021-11-07 16:06] LABS: Thyroid Stimulating Hormone 1.12 uIU/mL (0.465-4.68)
== END ==
PROVIDERS: PCP Emergency Medicine; Visit Provider Otolaryngology
DX: E05.90 Thyrotoxicosis, unspecified without thyrotoxic crisis or storm (principal)
CPT/HCPCS: 36415; 84439; 84443

== ENCOUNTER 2021-12-07 11:21 | Emergency (ER) | payer OTHER, SELFPAY ==
[2021-12-07 11:29] VITALS: BP 127/61; PULSE 84; RESP 18; TEMP 36.8; O2SAT 98; BMI 16.0
[2021-12-07 12:08] VITALS: BP 108/70; PULSE 85; RESP 18; O2SAT 98
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
[2021-12-07 12:30] VITALS: BP 117/72; PULSE 74; RESP 17; O2SAT 97
[2021-12-07 13:03] VITALS: BP 111/62; PULSE 84; RESP 17; TEMP 36.8; O2SAT 99
== END 2021-12-07 13:03 | disposition home or self-care (01) ==
PROVIDERS: Emergency Provider Emergency Medicine; PCP Emergency Medicine
DX: T23.151A Burn of first degree of right palm, initial encounter (principal); T31.0 Burns involving less than 10% of body surface; X10.2XXA Contact with fats and cooking oils, initial encounter; Z79.899 Other long term (current) drug therapy; E05.90 Thyrotoxicosis, unspecified without thyrotoxic crisis or storm
CPT/HCPCS: 99282

== ENCOUNTER → 2021-12-21 17:34 | Outpatient (CLI) | payer OTHER, SELFPAY ==
[2021-12-24 21:08] LABS: Neisseria gonorrhoeae, NAA Negative (Negative)
== END ==
PROVIDERS: PCP Nurse Practitioner Obstetrics & Gynecology; Visit Provider Nurse Practitioner Obstetrics & Gynecology
DX: R10.2 Pelvic and perineal pain (principal); Z72.51 High risk heterosexual behavior
CPT/HCPCS: 87491; 87591

== ENCOUNTER → 2022-01-14 09:28 | Outpatient (CLI) | payer OTHER, SELFPAY ==
[2022-01-14 11:04] LABS: Free T4 (Free Thyroxine) 1.14 ng/dl (0.78-2.19)
[2022-01-14 11:18] LABS: Thyroid Stimulating Hormone 2.07 uIU/mL (0.465-4.68)
== END ==
PROVIDERS: PCP Emergency Medicine; Visit Provider Otolaryngology
DX: E05.90 Thyrotoxicosis, unspecified without thyrotoxic crisis or storm (principal)
CPT/HCPCS: 36415; 84439; 84443

== ENCOUNTER → 2022-01-28 14:48 | Outpatient (CLI) | payer OTHER, SELFPAY ==
[2022-01-28 15:31] LABS: Hematocrit 44.3 % (37.0-47.0); Mean Corpuscular HGB Conc 33.8 g/dL (31.8-35.4); Mean Corpuscular Hemoglobin 30.5 pg (27.0-31.2); Mean Corpuscular Volume 90.2 fl (81-99); Platelet Count 466 K/mm3 (142-424); Red Blood Count 4.92 M/mm3 (4.20-5.40); Red Cell Distribution Width 12.7 % (11.5-17.5); White Blood Count 11.4 K/mm3 (4.5-13.0)
[2022-01-28 17:06] LABS: Alanine Aminotransferase 36 U/L (12-78); Albumin Level 4.4 g/dl (3.5-5.0); Albumin/Globulin Ratio 1.8 (1.1-1.8); Alkaline Phosphatase 104 U/L (38-126); Anion Gap 14.1 mEq/L (5-15); Aspartate Amino Transferase 34 U/L (14-36); Bilirubin,Total 0.5 mg/dl (0.2-1.3); Blood Urea Nitrogen 9 mg/dl (7-17); Calcium 9.9 mg/dl (8.4-10.2); Carbon Dioxide 24 mmol/L (22.0-30.0); Chloride 107 mmol/L (98-107); Estimated Glomerular Filt Rate 107 ml/min (>60); GFR (African American) 129 ML/MIN (>60); Globulin 2.5 g/dL (1.3-3.2); Glucose 83 mg/dl (74-100); Potassium 4.1 mmoL/L (3.5-5.1); Sodium 141 mmol/L (136-145); Total Protein,Serum 6.9 g/dl (6.3-8.2)
[2022-01-28 17:35] LABS: Thyroid Stimulating Hormone 2.33 uIU/mL (0.465-4.68)
[2022-01-30 08:18] LABS: Triiodothyronine (T3) Total 133 ng/dL (71-180)
[2022-01-30 15:43] LABS: Free T4 (Free Thyroxine) 1.65 ng/dl (0.78-2.19)
== END ==
PROVIDERS: PCP Emergency Medicine; Visit Provider Clinical Nurse Specialist Adult Health
DX: E05.90 Thyrotoxicosis, unspecified without thyrotoxic crisis or storm (principal)
CPT/HCPCS: 36415; 80053; 84439; 84443; 84480; 85014; 85018; 85048; 85049

== ENCOUNTER → 2022-03-04 11:32 | Outpatient (CLI) | payer OTHER, SELFPAY ==
[2022-03-04 14:08] LABS: Free T4 (Free Thyroxine) 1.05 ng/dl (0.78-2.19)
[2022-03-04 14:26] LABS: Thyroid Stimulating Hormone 1.97 uIU/mL (0.465-4.68)
[2022-03-05 12:54] LABS: Triiodothyronine (T3) Total 148 ng/dL (71-180)
== END ==
PROVIDERS: PCP Emergency Medicine; Visit Provider Clinical Nurse Specialist Adult Health
DX: E05.90 Thyrotoxicosis, unspecified without thyrotoxic crisis or storm (principal)
CPT/HCPCS: 36415; 84439; 84443; 84480

== ENCOUNTER → 2022-05-01 18:26 | Outpatient (CLI) | payer OTHER, SELFPAY ==
[2022-05-03 20:30] LABS: Neisseria gonorrhoeae, NAA Negative (Negative)
== END ==
PROVIDERS: PCP Nurse Practitioner Obstetrics & Gynecology; Visit Provider Nurse Practitioner Obstetrics & Gynecology
DX: Z34.90 Encounter for supervision of normal pregnancy, unspecified, unspecified trimester (principal)
CPT/HCPCS: 87491; 87591

== ENCOUNTER → 2022-05-13 13:23 | Outpatient (CLI) | payer OTHER, SELFPAY ==
[2022-05-13 14:25] LABS: Hematocrit 44.8 % (37.0-47.0); Mean Corpuscular HGB Conc 33.4 g/dL (31.8-35.4); Mean Corpuscular Hemoglobin 30.5 pg (27.0-31.2); Mean Corpuscular Volume 91.5 fl (81-99); Platelet Count 412 K/mm3 (142-424); Red Cell Distribution Width 12.2 % (11.5-17.5); White Blood Count 7.4 K/mm3 (4.5-13.0)
[2022-05-13 14:39] LABS: Alanine Aminotransferase 47 U/L (12-78); Albumin Level 4.9 g/dl (3.5-5.0); Alkaline Phosphatase 70 U/L (38-126); Anion Gap 12.4 mEq/L (5-15); Aspartate Amino Transferase 41 U/L (14-36); Bilirubin,Total 0.8 mg/dl (0.2-1.3); Blood Urea Nitrogen 9 mg/dl (7-17); Calcium 9.6 mg/dl (8.4-10.2); Carbon Dioxide 25 mmol/L (22.0-30.0); Chloride 104 mmol/L (98-107); Estimated Glomerular Filt Rate 127 ml/min (>60); GFR (African American) 154 ML/MIN (>60); Globulin 2.4 g/dL (1.3-3.2); Glucose 90 mg/dl (74-100); Potassium 4.4 mmoL/L (3.5-5.1); Sodium 137 mmol/L (136-145); Total Protein,Serum 7.3 g/dl (6.3-8.2)
[2022-05-13 14:55] LABS: Free T4 (Free Thyroxine) 1.35 ng/dl (0.78-2.19)
[2022-05-13 15:09] LABS: Thyroid Stimulating Hormone 2.38 uIU/mL (0.465-4.68)
[2022-05-15 12:06] LABS: Triiodothyronine (T3) Total 174 ng/dL (71-180)
== END ==
PROVIDERS: PCP Emergency Medicine; Visit Provider Clinical Nurse Specialist Adult Health
DX: E05.90 Thyrotoxicosis, unspecified without thyrotoxic crisis or storm (principal)
CPT/HCPCS: 36415; 80053; 84439; 84443; 84480; 85014; 85018; 85048; 85049

== ENCOUNTER → 2022-07-17 14:46 | Outpatient (CLI) | payer OTHER, SELFPAY ==
--- NOTE | 2022-07-17 14:46 | US_ITS ---
PROCEDURE INFORMATION: Exam: US Left Breast, Complete Exam date and time: 07/17/2022 3:14 PM Age: 22 years old Clinical indication: Diffuse bilateral breast pain. Focal palpable lump along the 1 o'clock axis 3 cm from the left nipple TECHNIQUE: Imaging protocol: Complete ultrasound of all four quadrants of the left breast and the retroareolar regions, including ultrasound of the axilla when performed. COMPARISON: No relevant prior studies available. FINDINGS: Breast: Only normal dense glandular structures are present. No suspicious solid or cystic mass is present. No benign-appearing solid or cystic mass is present. No architectural distortion or shadowing is present. No axillary adenopathy is present. IMPRESSION: No sonographic evidence of malignancy. Recommend annual screening mammography beginning at age 40 unless otherwise clinically indicated. ASSESSMENT: BI-RADS category 1: Negative
--- NOTE | 2022-07-17 14:46 | US_ITS ---
PROCEDURE INFORMATION: Exam: US Right Breast, Complete Exam date and time: 07/17/2022 3:09 PM Age: 22 years old Clinical indication: Diffuse bilateral breast pain . Palpable thickening in the 11 o'clock right breast 3 cm from the nipple. TECHNIQUE: Imaging protocol: Complete ultrasound of all four quadrants of the right breast and the retroareolar regions, including ultrasound of the axilla when performed. COMPARISON: No relevant prior studies available. FINDINGS: Breast: Only normal glandular structures are present No suspicious solid or cystic mass is present. No benign-appearing solid or cystic mass is present. No architectural distortion or shadowing is present. No axillary adenopathy is present. IMPRESSION: No sonographic evidence of malignancy. Recommend annual screening mammography beginning at age 40 unless otherwise clinically indicated. ASSESSMENT: BI-RADS category 1: Negative
== END ==
PROVIDERS: PCP Emergency Medicine; Visit Provider Nurse Practitioner Obstetrics & Gynecology
DX: N64.4 Mastodynia (principal); N60.11 Diffuse cystic mastopathy of right breast; N63.10 Unspecified lump in the right breast, unspecified quadrant; N60.12 Diffuse cystic mastopathy of left breast
CPT/HCPCS: 76641

== ENCOUNTER → 2022-08-08 12:00 | Outpatient (CLI) | payer OTHER, SELFPAY ==
[2022-08-08 13:22] LABS: Free T4 (Free Thyroxine) 1.45 ng/dl (0.78-2.19)
[2022-08-08 13:35] LABS: Thyroid Stimulating Hormone 1.24 uIU/mL (0.465-4.68)
[2022-08-09 09:32] LABS: Triiodothyronine (T3) Total 150 ng/dL (71-180)
== END ==
PROVIDERS: PCP Emergency Medicine; Visit Provider Clinical Nurse Specialist Adult Health
DX: E05.90 Thyrotoxicosis, unspecified without thyrotoxic crisis or storm (principal)
CPT/HCPCS: 36415; 84439; 84443; 84480

== ENCOUNTER 2022-08-11 22:24 | Emergency (ER) | payer OTHER, SELFPAY ==
[2022-08-11 22:30] VITALS: BP 100/70; PULSE 73; RESP 15; RESP 17; TEMP 36.7; O2SAT 97; BMI 16.2
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
[2022-08-11 22:46] LABS: Basophils % 0.2 % (0.1-2.0); Eosinophils # 0.1 K/mm3 (0.0-0.4); Eosinophils % 0.8 % (0.1-12.0); Hematocrit 41.9 % (37.0-47.0); Lymphocytes # 3.4 K/mm3 (0.7-4.5); Lymphocytes % 19.5 % (10-50); Mean Corpuscular HGB Conc 33.4 g/dL (31.8-35.4); Mean Corpuscular Hemoglobin 29.8 pg (27.0-31.2); Mean Corpuscular Volume 89.3 fl (81-99); Mean Platelet Volume 8.1 fl (7.4-10.4); Monocytes # 0.5 K/mm3 (0.1-1.0); Neutrophils # 13.3 K/mm3 (1.8-7.8); Neutrophils % 76.5 % (37.0-80.0); Platelet Count 430 K/mm3 (142-424); Red Blood Count 4.69 M/mm3 (4.20-5.40); Red Cell Distribution Width 12.2 % (11.5-17.5); White Blood Count 17.4 K/mm3 (4.8-10.8)
[2022-08-11 22:47] LABS: Chloride 107 mmol/L (98-107); Potassium 4.1 mmoL/L (3.5-5.1); Sodium 139 mmol/L (136-145)
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
[2022-08-11 22:49] VITALS: BMI 16.2
[2022-08-11 22:50] LABS: Alanine Aminotransferase 45 U/L (12-78); Albumin Level 4.2 g/dl (3.5-5.0); Albumin/Globulin Ratio 1.5 (1.1-1.8); Alkaline Phosphatase 64 U/L (38-126); Amylase 95 U/L (30-110); Anion Gap 13.1 mEq/L (5-15); Aspartate Amino Transferase 37 U/L (14-36); Bilirubin,Total 0.4 mg/dl (0.2-1.3); Blood Urea Nitrogen 11 mg/dl (7-17); Calcium 8.8 mg/dl (8.4-10.2); Carbon Dioxide 23 mmol/L (22.0-30.0); Creatinine Clearance Estimated 84 mL/min (50-200); Estimated Glomerular Filt Rate 106 ml/min (>60); GFR (African American) 128 ML/MIN (>60); Globulin 2.8 g/dL (1.3-3.2); Glucose 113 mg/dl (74-100); HCG Qualitative, Serum Negative (Negative); Lipase 74 U/L (23-300)
[2022-08-11 22:53] LABS: MANUAL DIFFERENTIAL MANUAL DIFFERENTIAL (MANUAL DIFF)
--- NOTE | 2022-08-11 22:55 | PC.NURSE ---
Pt able to provide urine sample using bedpan
[2022-08-11 22:57] LABS: Microscopic, Urine URINE MICROSCOPIC (MICROSCOPIC)
[2022-08-11 23:00] VITALS: BP 100/59; PULSE 66; O2SAT 99
[2022-08-11 23:07] LABS: Appearance,Urine SL CLOUDY (Clear); Bilirubin,Urine Negative (Negative); Blood, Urine Negative (Negative); Color,Urine YELLOW (Yellow); Glucose,Urine (UA) Negative (Negative); Ketones,Urine Negative (Negative); Leukocyte Esterase,Urine TRACE (Negative); Nitrate,Urine POSITIVE (Negative); Protein,Urine Negative (Negative); Specific Gravity, Urine 1.025 (1.005-1.030)
[2022-08-11 23:23] LABS: Bacteria,Urine 3+ /lpf; Squamous Epithelial Cell,Urine 50-100 #/hpf (0-5); WBC,Urine 20-50 #/hpf (0-3)
[2022-08-11 23:23] LABS: Lymphocytes % 27 % (10-50); Monocytes % 4 % (2-9); Neutrophils % 68 % (42-76); Platelet Estimate Normal; RBC Morphology Normal; Total Cells Counted 100
[2022-08-11 23:30] VITALS: BP 104/68; PULSE 62; O2SAT 99
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
[2022-08-12] VITALS: BP 110/74; PULSE 62; RESP 13; O2SAT 100
[2022-08-12 00:15] VITALS: BP 105/79; PULSE 57; RESP 13; O2SAT 99
[2022-08-12 00:30] VITALS: BP 101/64; PULSE 55; RESP 24; O2SAT 99
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
--- NOTE | 2022-08-12 00:40 | PC.NURSE ---
Pt accepted to [facility] by Dr. Marin
[2022-08-12 01:00] VITALS: BP 107/59; PULSE 67; RESP 19; O2SAT 99
[2022-08-12 01:09] VITALS: BP 106/75; PULSE 61; RESP 19; TEMP 36.7; O2SAT 98
== END 2022-08-12 01:41 | disposition short-term general hospital (02) ==
PROVIDERS: Emergency Provider Emergency Medicine; PCP Emergency Medicine
DX: M54.2 Cervicalgia (principal); M54.9 Dorsalgia, unspecified; V86.65XA Passenger of 3- or 4- wheeled all-terrain vehicle (ATV) injured in nontraffic accident, initial encounter; R10.9 Unspecified abdominal pain; E05.90 Thyrotoxicosis, unspecified without thyrotoxic crisis or storm; I47.1 Supraventricular tachycardia
CPT/HCPCS: 51702; 70450; 71045; 71275; 72125; 72128; 72131; 72170; 74177; 80053; 81001; 82150; 83690; 84703; 85007; 85025; 87086; 87088; 87186; 96361; 96374; 96375; 96376; 99285; J2405; Q9967

== ENCOUNTER 2022-09-05 14:00 | Outpatient (RCR) | payer OTHER, SELFPAY ==
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
== END 2022-09-05 14:05 | disposition home or self-care (01) ==
LOC: PT 14:00
PROVIDERS: PCP Emergency Medicine; Visit Provider Emergency Medicine
DX: M54.50 Low back pain, unspecified (principal)
CPT/HCPCS: 97010; 97014; 97035; 97110; 97140; 97163; G0283

== ENCOUNTER → 2022-09-12 12:26 | Outpatient (CLI) | payer OTHER, SELFPAY ==
[2022-09-12 13:54] LABS: Alanine Aminotransferase 42 U/L (12-78); Albumin Level 4.6 g/dl (3.5-5.0); Albumin/Globulin Ratio 1.8 (1.1-1.8); Alkaline Phosphatase 74 U/L (38-126); Aspartate Amino Transferase 34 U/L (14-36); Bilirubin,Total 0.4 mg/dl (0.2-1.3); Blood Urea Nitrogen 9 mg/dl (7-17); Calcium 9.8 mg/dl (8.4-10.2); Carbon Dioxide 31 mmol/L (22.0-30.0); Chloride 105 mmol/L (98-107); Estimated Glomerular Filt Rate 126 ml/min (>60); GFR (African American) 153 ML/MIN (>60); Globulin 2.5 g/dL (1.3-3.2); Glucose 98 mg/dl (74-100); Sodium 141 mmol/L (136-145); Total Protein,Serum 7.1 g/dl (6.3-8.2)
[2022-09-12 14:24] LABS: Thyroid Stimulating Hormone 0.54 uIU/mL (0.465-4.68)
[2022-09-12 16:33] LABS: Hematocrit 43.9 % (37.0-47.0); Hemoglobin 14.4 g/dL (12.2-16.2); Mean Corpuscular HGB Conc 32.7 g/dL (31.8-35.4); Mean Corpuscular Hemoglobin 30.3 pg (27.0-31.2); Mean Corpuscular Volume 92.8 fl (81-99); Platelet Count 412 K/mm3 (142-424); Red Blood Count 4.73 M/mm3 (4.20-5.40); Red Cell Distribution Width 12.1 % (11.5-17.5); White Blood Count 7.1 K/mm3 (4.8-10.8)
[2022-09-12 19:38] LABS: Free T4 (Free Thyroxine) 1.23 ng/dl (0.78-2.19)
[2022-09-13 11:16] LABS: Triiodothyronine (T3) Total 139 ng/dL (71-180)
== END ==
PROVIDERS: PCP Emergency Medicine; Visit Provider Clinical Nurse Specialist Adult Health
DX: E05.90 Thyrotoxicosis, unspecified without thyrotoxic crisis or storm (principal)
CPT/HCPCS: 36415; 80053; 84439; 84443; 84480; 85014; 85018; 85048; 85049

== ENCOUNTER → 2022-10-02 08:53 | Outpatient (POV) | payer OTHER, SELFPAY ==
[2022-10-02 09:17] VITALS: BP 99/56; PULSE 68; RESP 18; O2SAT 98; BMI 15.3
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
== END | disposition home or self-care (01) ==
PROVIDERS: PCP Emergency Medicine; Visit Provider Nurse Practitioner Family
DX: M54.50 Low back pain, unspecified (principal); M54.6 Pain in thoracic spine; M54.12 Radiculopathy, cervical region
CPT/HCPCS: 99202; G0463

== ENCOUNTER → 2022-10-17 14:15 | Outpatient (CLI) | payer OTHER, SELFPAY ==
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
== END ==
PROVIDERS: PCP Emergency Medicine; Visit Provider Nurse Practitioner Family
DX: M54.50 Low back pain, unspecified (principal)
CPT/HCPCS: 72148; 76376

== ENCOUNTER → 2022-10-30 06:53 | Outpatient (CLI) | payer OTHER, SELFPAY ==
--- NOTE | 2022-10-30 06:58 | US_ITS ---
FINAL REPORT CLINICAL HISTORY: vomiting and abdominal pain COMPARISON: None FINDINGS: Sonographic images of the right upper quadrant were obtained. The pancreas is unremarkable.The liver has an unremarkable appearance. The portal vein is patent. Gallstone is seen in the gallbladder. There is no evidence of biliary ductal dilatation.The common duct measures 2 mm. Limited images of the right kidney are unremarkable. IMPRESSION: Cholelithiasis. Reviewed, Interpreted and Dictated by Edinson Caldwell III, MD Transcribed by Radha Gonzalez Authenticated and [facility]
== END ==
LOC: RAD 06:53
PROVIDERS: PCP Emergency Medicine; Visit Provider Emergency Medicine
DX: R10.9 Unspecified abdominal pain (principal); R11.10 Vomiting, unspecified
CPT/HCPCS: 76705

== ENCOUNTER 2022-10-30 16:00 | Outpatient (RCR) | payer OTHER, SELFPAY | END 2022-10-30 16:05 | disposition home or self-care (01) | LOC: PT 16:00 | PROVIDERS: PCP Emergency Medicine; Visit Provider Emergency Medicine | DX: M54.50 Low back pain, unspecified (principal) | CPT/HCPCS: 97010; 97014; 97110; 97140; 97163; G0283 ==

== ENCOUNTER → 2022-11-01 11:18 | Outpatient (POV) | payer OTHER, SELFPAY ==
[2022-11-01 12:54] VITALS: BP 98/67; PULSE 90; RESP 18; O2SAT 98; BMI 15.0
--- NOTE | 2022-11-01 13:40 | EXP.PAIN.SOA ---
[facility] Pain Management SOAP Note Subjective:: This patient is a very pleasant 22-year-old female that comes our clinic today to review recent lumbar MRI results. MRI was done 10/17/2022. MRI essentially is normal. Patient's main complaint is right low lumbar hip pain that radiates into her right posterior hip. She describes this as constant, dull, aching. Patient has a 1-year-old at home that she delivered here at [facility]. Upon examination she has extreme point tenderness over the right sacroiliac joint. Patient has difficulty transitioning from sitting to standing. She has difficulty with lumbar extension. She has difficulty with lumbar flexion. She has positive Zonia's test on the right. Positive Gaenslen's test on the right. Positive right sacroiliac joint compression test. I discussed in detail with the patient regarding right sacroiliac joint injection. Answered her questions. She wishes to proceed. Objective:: Patient is awake alert [place] x3. No acute distress. Flexion-extension lumbar spine somewhat guarded secondary to pain. Deep tendon reflexes upper lower extremities normal. Motor strength upper and lower extremities normal. There is no gross sensory deficit. Gait is normal. Assessment:: Right sacroiliitis. Plan:: We will plan right sacroiliac joint injection. Again, I discussed in detail with the patient regarding risk versus benefits. She wishes to proceed [facility] Disclaimer: The information contained in this section may have been updated after the patient was seen, as this information can be updated by other users. Medical History Fatigue Hyperthyroidism Palpitations SVT (supraventricular tachycardia) Family History Other No significant family history Social History Smoking Status: Current every day smoker tobacco type: e-cigarettes second hand exposure: No alcohol intake: never substance use type: denies use current occupational status: unemployed Travel in the last 8 weeks: None household members: significant other housing: house
== END ==
PROVIDERS: PCP Emergency Medicine; Visit Provider Nurse Anesthetist, Certified Registered
DX: M46.1 Sacroiliitis, not elsewhere classified (principal)
CPT/HCPCS: 99212; G0463

== ENCOUNTER 2022-11-09 01:47 | Emergency (ER) | payer OTHER, SELFPAY ==
[2022-11-09 01:49] VITALS: BP 88/60; PULSE 65; RESP 18; TEMP 36.9; O2SAT 99; BMI 15.5
--- NOTE | 2022-11-09 01:54 | CT_ITS ---
PROCEDURE INFORMATION: Exam: CT Chest Without Contrast; Diagnostic Exam date and time: 11/09/2022 2:23 AM Age: 22 years old Clinical indication: Chest wall pain; Additional info: Fall, chest pain back pain TECHNIQUE: Imaging protocol: Diagnostic computed tomography of the chest without contrast. Radiation optimization: All CT scans at this facility use at least one of these dose optimization techniques: automated exposure control; mA and/or kV adjustment per patient size (includes targeted exams where dose is matched to clinical indication); or iterative reconstruction. REPORTING DATA: Count of CT and Cardiac NM exams in prior 12 months: This patient has received 6 known CTs and 0 known cardiac nuclear medicine studies in the 12 months prior to the current study. COMPARISON: CT ANGIO CHEST 08/11/2022 11:24 PM FINDINGS: Tubes, catheters and devices: Loop recorder in the subcutaneous tissues of the anterior chest on the left. Small calcified mediastinal and right hilar granulomata. Lungs: No consolidation. No masses. Pleural spaces: No pneumothorax. No pleural effusion. Heart: No cardiomegaly. No pericardial effusion. No significant coronary artery calcifications identified. Lymph nodes: No pathologically enlarged lymph nodes. Vasculature: Unremarkable. No aortic aneurysm. Bones/joints: No acute fracture. Soft tissues: No acute findings. IMPRESSION: No acute findings in the chest.
--- NOTE | 2022-11-09 01:54 | CT_ITS ---
PROCEDURE INFORMATION: Exam: CT Cervical Spine Without Contrast Exam date and time: 11/09/2022 2:14 AM Age: 22 years old Clinical indication: Neck pain; Additional info: Fall neck pain TECHNIQUE: Imaging protocol: Computed tomography of the cervical spine without contrast. Radiation optimization: All CT scans at this facility use at least one of these dose optimization techniques: automated exposure control; mA and/or kV adjustment per patient size (includes targeted exams where dose is matched to clinical indication); or iterative reconstruction. REPORTING DATA: Count of CT and Cardiac NM exams in prior 12 months: This patient has received 6 known CTs and 0 known cardiac nuclear medicine studies in the 12 months prior to the current study. COMPARISON: CT CERVICAL SPINE WO CON 08/11/2022 11:10 PM FINDINGS: Bones/joints: No acute fracture. Normal alignment. No significant disc bulge or herniation. No severe spinal canal stenosis. No significant neural foraminal narrowing. Lungs: No acute findings in the visualized lung apices. Soft tissues: No acute findings. IMPRESSION: No acute findings.
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
--- NOTE | 2022-11-09 01:54 | CT_ITS ---
PROCEDURE INFORMATION: Exam: CT Lumbar Spine Without Contrast Exam date and time: 11/09/2022 2:20 AM Age: 22 years old Clinical indication: Low back pain; Additional info: Fall back pain TECHNIQUE: Imaging protocol: Computed tomography of the lumbar spine without contrast. Radiation optimization: All CT scans at this facility use at least one of these dose optimization techniques: automated exposure control; mA and/or kV adjustment per patient size (includes targeted exams where dose is matched to clinical indication); or iterative reconstruction. REPORTING DATA: Count of CT and Cardiac NM exams in prior 12 months: This patient has received 6 known CTs and 0 known cardiac nuclear medicine studies in the 12 months prior to the current study. COMPARISON: MR LUMBAR SPINE WO CON 10/17/2022 2:26 PM FINDINGS: Bones/joints: No acute fracture. Normal alignment. No significant disc bulge or herniation. No severe spinal canal stenosis. No significant neural foraminal narrowing. Soft tissues: Unremarkable. IMPRESSION: No acute findings.
--- NOTE | 2022-11-09 01:54 | CT_ITS ---
PROCEDURE INFORMATION: Exam: CT Thoracic Spine Without Contrast Exam date and time: 11/09/2022 2:17 AM Age: 22 years old Clinical indication: Pain in thoracic spine; Additional info: Fall, back pain TECHNIQUE: Imaging protocol: Computed tomography of the thoracic spine without contrast. Radiation optimization: All CT scans at this facility use at least one of these dose optimization techniques: automated exposure control; mA and/or kV adjustment per patient size (includes targeted exams where dose is matched to clinical indication); or iterative reconstruction. REPORTING DATA: Count of CT and Cardiac NM exams in prior 12 months: This patient has received 6 known CTs and 0 known cardiac nuclear medicine studies in the 12 months prior to the current study. COMPARISON: CT THORACIC SPINE WO CON 08/11/2022 11:14 PM FINDINGS: Bones/joints: No acute fracture. Normal alignment. No significant disc bulge or herniation. No severe spinal canal stenosis. No significant neural foraminal narrowing. Soft tissues: Unremarkable. IMPRESSION: Unremarkable CT Spine.
--- NOTE | 2022-11-09 01:54 | CT_ITS ---
PROCEDURE INFORMATION: Exam: CT Abdomen And Pelvis Without Contrast Exam date and time: 11/09/2022 2:26 AM Age: 22 years old Clinical indication: Abdominal pain; Additional info: Fall abd pain TECHNIQUE: Imaging protocol: Computed tomography of the abdomen and pelvis without contrast. Radiation optimization: All CT scans at this facility use at least one of these dose optimization techniques: automated exposure control; mA and/or kV adjustment per patient size (includes targeted exams where dose is matched to clinical indication); or iterative reconstruction. REPORTING DATA: Count of CT and Cardiac NM exams in prior 12 months: This patient has received 6 known CTs and 0 known cardiac nuclear medicine studies in the 12 months prior to the current study. COMPARISON: CT ABDOMEN PELVIS W CON 08/11/2022 11:24 PM FINDINGS: Liver: No acute findings. No mass. Gallbladder and bile ducts: Cholelithiasis without associated acute findings. Pancreas: No acute findings, focal abnormality or ductal dilation. Spleen: No splenomegaly or focal abnormality. Adrenal glands: Normal. No mass. Kidneys and ureters: No hydronephrosis. Stomach and bowel: No obstruction. No mucosal thickening. Appendix: No evidence of appendicitis. Intraperitoneal space: No free air. No significant fluid collection. Vasculature: No abdominal aortic aneurysm. Lymph nodes: No pathologically enlarged lymph nodes. Urinary bladder: Unremarkable as visualized. Reproductive: Unremarkable as visualized. Bones/joints: No acute fracture. Soft tissues: No acute findings. IMPRESSION: 1. No acute findings in the abdomen or pelvis. 2. Cholelithiasis.
--- NOTE | 2022-11-09 01:56 | XR_ITS ---
PROCEDURE INFORMATION: Exam: XR Pelvis Exam date and time: 11/09/2022 2:21 AM Age: 22 years old Clinical indication: Pelvic pain; Additional info: Fall, pain TECHNIQUE: Imaging protocol: Radiologic exam of the pelvis. Views: 1 or 2 view. COMPARISON: CR XR PELVIS 1-2V 08/11/2022 11:49 PM FINDINGS: Bones/joints: No acute fracture, dislocation or osseous destructive process. Soft tissues: No acute findings or radiopaque foreign body. IMPRESSION: No acute findings.
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
--- NOTE | 2022-11-09 03:48 | PC.NURSE ---
in room talking with patient.
[2022-11-09 03:58] VITALS: BP 109/92; PULSE 65; RESP 16; TEMP 36.8; O2SAT 99
== END 2022-11-09 04:01 | disposition home or self-care (01) ==
PROVIDERS: Emergency Provider Emergency Medicine; PCP Emergency Medicine
DX: R51.9 Headache, unspecified (principal); M54.2 Cervicalgia; I47.1 Supraventricular tachycardia; W09.1XXA Fall from playground swing, initial encounter; E03.9 Hypothyroidism, unspecified; F17.290 Nicotine dependence, other tobacco product, uncomplicated
CPT/HCPCS: 70450; 71250; 72125; 72128; 72131; 72170; 74176; 99285

== ENCOUNTER → 2022-11-11 09:39 | Outpatient (CLI) | payer OTHER, SELFPAY ==
--- NOTE | 2022-11-11 09:39 | FL_ITS ---
FINAL REPORT CLINICAL HISTORY: . NAUSEA 3:50 FLUORO TIME 1200.66 DAP FINDINGS: UPPER GI WITH SBFT HISTORY: Epigastric pain with nausea. PROCEDURE: The patient ingested barium. Effervescent crystals were also administered. Spot and overhead films were obtained. Additional barium was administered for a SBFT. Fluoro time: 3 minutes 50 seconds. Total DAP: 1200.66 uGycm2. 25 radiographs were obtained. FINDINGS: UGI: The esophagus is normal. There is no hiatal hernia. There is no gastroesophageal reflux. Peristalsis is normal. The rugal fold pattern of the stomach is normal. The duodenal bulb is normal. SBFT: The licensed mass real estate appraiser film is normal. There is no evidence of obstruction. The mucosal fold pattern is normal. The terminal ilium is normal. IMPRESSION: Normal UGI and SBFT. Films reviewed , interpreted and dictated by Dr. Maguire. Transcribed by Juancho Godoy PA-C. Reviewed, Interpreted and Dictated by Leopoldo Maguire MD Transcribed by KENTON Dickinson Authenticated and [facility]
== END ==
PROVIDERS: PCP Emergency Medicine; Visit Provider Surgery
DX: R11.0 Nausea (principal)
CPT/HCPCS: 74246; 74248

== ENCOUNTER 2022-11-12 08:56 | Day surgery (SDC) | payer OTHER, SELFPAY ==
[2022-11-12 09:17] VITALS: BP 116/82; PULSE 86; RESP 16; TEMP 36.4; O2SAT 100; BMI 15.5
[2022-11-12 09:24] VITALS: BP 116/84; PULSE 82; RESP 18; O2SAT 100
--- NOTE | 2022-11-12 09:25 | EXP.PAIN.PRO ---
Procedure Date: 11/12/22 Time: 09:05 Anesthesiologist:: Marcus Morrissey CRNA Complications:: None Pre-procedure Diagnosis:: Right sacroiliitis Post-procedure Diagnosis:: Same. Indications for Procedure:: Patient is a pleasant 22-year-old female comes our clinic today for right sacroiliac joint injection. Patient has normal MRI of the lumbar spine. However, she complains of right posterior hip pain she describes as constant, dull, aching, sharp and stabbing at times. Patient has difficulty transitioning from sitting to standing. She has difficulty with ambulation secondary to right posterior hip pain. She rates her pain 7/10 Procedure Details:: Procedure: Right sacroliliac joint injection under fluoroscopy Informed consent was obtained and the risk and benefits of the procedure were explained to the patient.~ The patient was taken to the procedure room and noninvasive monitors were placed including noninvasive blood pressure cuff and pulse oximeter.~ The patient was placed prone on the procedure table.~ The~ right hip was cleansed using Betadine as a cleansing solution.~ C-arm fluorosocpy was used to view the right SI joint.~ The skin and subcutaneous tissues were anesthetized using Lidocaine 1.5% and a 25-gauge needle.~ After this, a 22-gauge spinal needle was inserted under fluoroscopic guidance into the inferior aspect of the right SI joint.~ Omnipaque dye was injected and a good spread was seen throughout the joint.~ After this, approximately 5 mL of bupivacaine 0.25% and Depo-Medrol 40 mg was incrementally injected into the sacroiliac joint.~ The patient tolerated the procedure well with no complications.~ The patient was observed in the Pain Clinic, then discharged home neurologically intact.~ Plan and Disposition:: Patient was discharged without incident.
[2022-11-12 09:43] VITALS: BP 124/89; PULSE 79; RESP 18; O2SAT 99
[2022-11-12 09:52] VITALS: BP 124/89; PULSE 79; RESP 18; O2SAT 99
== END 2022-11-12 09:24 | disposition home or self-care (01) ==
PROVIDERS: PCP Emergency Medicine; Visit Provider Nurse Anesthetist, Certified Registered
DX: M46.1 Sacroiliitis, not elsewhere classified (principal)
CPT/HCPCS: 27096; G0260; J1040

== ENCOUNTER 2022-11-29 10:17 | Day surgery (SDC) | payer OTHER, SELFPAY ==
[2022-11-26 14:30] VITALS: BMI 15.5
[2022-11-29 10:37] VITALS: BP 117/84; PULSE 79; RESP 16; TEMP 36.5; O2SAT 99
[2022-11-29 10:50] LABS: Urine Pregnancy, HCG Qual. Negative (Negative)
--- NOTE | 2022-11-29 11:02 | P.PNANES_ITS ---
[facility] Disclaimer: The information contained in this section may have been updated after the patient was seen, as this information can be updated by other users. Medical History Fatigue Hyperthyroidism Palpitations SVT (supraventricular tachycardia) Family History Other Cancer Heart disease Seizures Social History Smoking Status: Current every day smoker tobacco type: e-cigarettes second hand exposure: No alcohol intake: never substance use type: denies use current occupational status: unemployed Travel in the last 8 weeks: None household members: significant other housing: house caffeine: Yes [facility] Anesthesia Checklist Patient Identification Patient Identification: Arm Band and Verbal (Name & ) Structural Data Admitted From: Home Planned Operative Procedure/s: EGD Consent for Planned Operative Procedure(s) Verified: Yes NPO Status Verified Time NPO: 00:00 Additional verifications Patient : No Anesthesia Reactions: No Hx Blood Transfusions: No Blood Transfusion Reaction: No Airway Assessment Mallampati Score:: Class I C-Spine Mobility Assessed: Yes TMJ Mobility Assessed: Yes Dentition: Good Dentition Neurological Assessment Level of Consciousness: Awake Hx Seizures: No Numbness or tingling in extremities: No Anesthesia Plan Anesthesia Risk discussed: Yes Anesthesia Plan: Verified ASA Class: II Anesthesia Type: MAC
[2022-11-29 11:18] VITALS: O2SAT 100
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
[2022-11-29 11:31] VITALS: BP 97/61; PULSE 751; RESP 14; TEMP 36.4; O2SAT 100
[2022-11-29 11:41] VITALS: BP 140/65; PULSE 75; RESP 16; O2SAT 100
[2022-11-29 11:51] VITALS: BP 103/40; PULSE 68; RESP 16; O2SAT 100
[2022-11-29 12:01] VITALS: BP 109/56; PULSE 62; RESP 16; TEMP 36.3; O2SAT 100
== END 2022-11-29 12:01 | disposition home or self-care (01) ==
PROVIDERS: PCP Emergency Medicine; Visit Provider Surgery
PROC: 0DJ08ZZ Inspection of Upper Intestinal Tract, Via Natural or Artificial Opening Endoscopic (ICD-10-PCS; CPT 43235; principal; 2022-11-29 11:30)
DX: K22.4 Dyskinesia of esophagus (principal); K31.9 Disease of stomach and duodenum, unspecified
CPT/HCPCS: 43239; 81025

== ENCOUNTER → 2022-12-02 10:00 | Outpatient (POV) | payer OTHER, SELFPAY ==
[2022-12-02 10:11] VITALS: BP 102/76; PULSE 72; RESP 20; BMI 15.5
--- NOTE | 2022-12-02 10:42 | A.OFFVIS_ITS ---
[facility] Pain Management SOAP Note Subjective:: This patient is a pleasant 22-year-old comes our clinic today for follow-up visit after receiving right sacroiliac joint injection of cortisone. Patient reports moderate improvement. She is very pleased with the degree of relief. She rates her pain today 7/10. Patient is status post normal vaginal delivery 9 months ago patient reports right sacroiliac joint pain began in third trimester of . Patient continues with some moderate right posterior hip pain she describes as intermittent, dull, aching. Patient has a history of SVT and is on diltiazem as well as Nodolol. I discussed with the patient regarding prescription strength NSAID. However, with her heart history I would rather not. Discussed with the patient regarding possibility of repeating the right sacroiliac joint injection of cortisone in the future if the pain returned in its entirety. Patient reports she has been on Flexeril in the past. This helped her with sleep. I think this is reasonable. We will call in Flexeril 10 mg 1 p.o. nightly #30. Patient's Colt #[id number] has been reviewed and approp [facility]. Objective:: Patient is awake alert [place] x3. In no acute distress. Flexion-extension lumbar spine somewhat guarded secondary to pain. Deep tendon reflexes upper and lower extremities normal. Motor strength upper and lower extremities normal. There is no gross sensory deficit. Gait is normal. Assessment:: Right sacroiliitis. Plan:: We will prescribe Flexeril 10 mg 1 p.o. nightly. Patient will return to see us in 1 month. [facility] Disclaimer: The information contained in this section may have been updated after the patient was seen, as this information can be updated by other users. Medical History Fatigue Hyperthyroidism Palpitations SVT (supraventricular tachycardia) Family History Other Cancer Heart disease Seizures Social History Smoking Status: Current every day smoker tobacco type: e-cigarettes second hand exposure: No alcohol intake: never substance use type: denies use current occupational status: other Travel in the last 8 weeks: None household members: significant other housing: house caffeine: Yes
== END | disposition home or self-care (01) ==
PROVIDERS: PCP Emergency Medicine; Visit Provider Nurse Anesthetist, Certified Registered
DX: M46.1 Sacroiliitis, not elsewhere classified (principal)
CPT/HCPCS: 99212; G0463

== ENCOUNTER → 2023-01-01 23:45 | Outpatient (CLI) | payer OTHER, SELFPAY ==
[2023-01-01 20:38] LABS: Amphetamine/Metha Screen,Urine Negative ng/ml (<1000)
[2023-01-01 20:39] LABS: Barbiturates Screen,Urine Negative ng/ml (<200); Benzodiazepines Screen,Urine Negative ng/ml (<200)
[2023-01-01 20:40] LABS: Cannabinoid Screen,Urine Negative ng/ml (<50); Cocaine Screen,Urine Negative ng/ml (<300)
[2023-01-01 20:41] LABS: Methadone Screen,Urine Negative ng/ml (<300)
[2023-01-01 20:42] LABS: Opiate Screen,Urine Negative ng/ml (<300); Phencyclidine Screen,Urine Negative ng/ml (<25)
== END ==
PROVIDERS: PCP Emergency Medicine; Visit Provider Emergency Medicine
DX: Z79.899 Other long term (current) drug therapy (principal)
CPT/HCPCS: 80305

== ENCOUNTER → 2023-01-02 11:24 | Outpatient (POV) | payer OTHER, SELFPAY ==
--- NOTE | 2023-01-02 11:53 | EXP.PAIN.SOA ---
[facility] Pain Management SOAP Note Subjective:: Patient is a pleasant 22-year-old female who presents today for follow-up. We are currently treating the patient for sacroiliitis, low back pain. Today she rates her pain an 8 out of 10. Patient denies any new trauma or injury. She does state that she continues to have the same pain on a regular basis but does seem to be affected by the cold weather. Patient did previously have a SI injection that did provide significant improvement however only lasted approximately 3 days. At her last visit she was prescribed Flexeril at night and states this did provide additional relief. Patient is also prescribed compounding cream that she states helps additionally. Patient does have a history of SVT and is on diltiazem and nadolol for this condition. She does state it is well controlled. She is also prescribed clonazepam 0.5 mg twice a day from an outside provider. Her Colt has been reviewed and is appropriate. Review of Systems: General: No recent weight changes, no fever, no sleep disturbances Respiratory: No cough, no shortness of air, no recurring pulmonary infections Cardiovascular/peripheral vascular: No chest pain, no palpitations, no edema, no shortness of breath Gastrointestinal: No new onset incontinence, normal bowel movements reported Genitourinary: No new onset incontinence Musculoskeletal: Low back pain, hip pain Psychiatric: [Normal mood/affect] Neurological: [Denies weakness in extremities], [denies balance issues] Objective:: Physical Exam: General: Alert and oriented x3, no acute distress, pleasant and cooperative Lungs: Respirations even and unlabored, symmetrical chest expansion Eyes: PERRL Musculoskeletal: Flexion and extension of lumbar [spine] somewhat guarded secondary to pain Neurological: Speech clear, no gross sensory deficit Assessment:: Low back pain, sacroiliitis Plan:: I will refill the patient's Flexeril 10 mg at bedtime and provide a 3-month supply of this medication. Patient will return to clinic in 1 month for reevaluation of symptoms and plan of care. Patient has been instructed to contact the clinic with any concerns before the next appointment. Dr. Quach has reviewed this note and agrees with this plan of care. This note was dictated using voice recognition software and make contain errors or omissions. [facility] Disclaimer: The information contained in this section may have been updated after the patient was seen, as this information can be updated by other users. Medical History Fatigue Hyperthyroidism Palpitations SVT (supraventricular tachycardia) Surgical History History of esophagogastroduodenoscopy (EGD) Family History Other Cancer Heart disease Seizures Social History Smoking Status: Current every day smoker tobacco type: e-cigarettes second hand exposure: No alcohol intake: never substance use type: denies use current occupational status: other Travel in the last 8 weeks: None household members: significant other housing: house caffeine: Yes
[2023-01-02 12:47] VITALS: BP 107/57; PULSE 99; RESP 18; O2SAT 98; BMI 16.6
== END | disposition home or self-care (01) ==
PROVIDERS: PCP Emergency Medicine; Visit Provider Nurse Practitioner Family
DX: M54.50 Low back pain, unspecified (principal); M46.1 Sacroiliitis, not elsewhere classified
CPT/HCPCS: 99212; G0463

== ENCOUNTER → 2023-01-20 10:58 | Outpatient (CLI) | payer OTHER, SELFPAY ==
[2023-01-20 11:47] LABS: Basophils # 0.1 K/mm3 (0-0.2); Basophils % 0.8 % (0.1-2.0); Eosinophils # 0.2 K/mm3 (0.0-0.4); Eosinophils % 1.7 % (0.1-12.0); Hematocrit 44.9 % (37.0-47.0); Hemoglobin 15.4 g/dL (12.2-16.2); Lymphocytes # 2.1 K/mm3 (0.7-4.5); Mean Corpuscular HGB Conc 34.4 g/dL (31.8-35.4); Mean Corpuscular Hemoglobin 31.9 pg (27.0-31.2); Mean Corpuscular Volume 92.7 fl (81-99); Mean Platelet Volume 7.9 fl (7.4-10.4); Monocytes # 0.6 K/mm3 (0.1-1.0); Monocytes % 7.2 % (1.7-9.3); Neutrophils # 5.7 K/mm3 (1.8-7.8); Neutrophils % 66.2 % (37.0-80.0); Platelet Count 370 K/mm3 (142-424); Red Blood Count 4.84 M/mm3 (4.20-5.40); Red Cell Distribution Width 12.3 % (11.5-17.5); White Blood Count 8.6 K/mm3 (4.8-10.8)
[2023-01-20 12:19] LABS: Alanine Aminotransferase 36 U/L (12-78); Alkaline Phosphatase 66 U/L (38-126); Aspartate Amino Transferase 33 U/L (14-36); Bilirubin,Total 0.4 mg/dl (0.2-1.3); Blood Urea Nitrogen 9 mg/dl (7-17); Carbon Dioxide 25 mmol/L (22.0-30.0); Chloride 104 mmol/L (98-107); Estimated Glomerular Filt Rate 106 ml/min (>60); GFR (African American) 128 ML/MIN (>60)
[2023-01-20 12:20] LABS: Albumin Level 4.6 g/dl (3.5-5.0); Albumin/Globulin Ratio 1.6 (1.1-1.8); Calcium 9.3 mg/dl (8.4-10.2); Globulin 2.8 g/dL (1.3-3.2); Glucose 97 mg/dl (74-100); Sodium 137 mmol/L (136-145); Total Protein,Serum 7.4 g/dl (6.3-8.2)
[2023-01-20 12:34] LABS: Free T4 (Free Thyroxine) 1.28 ng/dl (0.78-2.19)
[2023-01-20 12:47] LABS: Thyroid Stimulating Hormone 0.34 uIU/mL (0.465-4.68)
[2023-01-21 08:39] LABS: Triiodothyronine (T3) Total 153 ng/dL (71-180)
== END ==
PROVIDERS: PCP Internal Medicine; Visit Provider Clinical Nurse Specialist Adult Health
DX: E05.90 Thyrotoxicosis, unspecified without thyrotoxic crisis or storm (principal)
CPT/HCPCS: 36415; 80053; 84439; 84443; 84480; 85025

== ENCOUNTER → 2023-01-29 11:28 | Outpatient (POV) | payer OTHER, SELFPAY ==
--- NOTE | 2023-01-29 11:41 | EXP.PAIN.SOA ---
[facility] Pain Management SOAP Note Subjective:: Patient is a pleasant 22-year-old female who presents today for 1 month follow-up. We are currently treating the patient for sacroiliitis right-sided and low back pain. Today she rates her pain an 8 out of 10. Patient denies any new trauma or injury. She states she continues to have pain at her low back on the right side. Patient does state the pain is fairly constant and is worse with certain movements such as bending, twisting or lifting. Patient states the pain is interfering with her ability to sleep at night. Patient states she tosses and turns due to the worsening pain with certain positioning. Patient states it does interfere with her ability to perform activities of daily living such as cooking or cleaning or even picking up her son. Patient does state that the cold weather seems to have aggravated her symptoms. Patient is currently managed with Flexeril 10 mg at bedtime and compounding cream. She is prescribed clonazepam 0.5 mg twice a day from her primary care provider. Her Colt has been reviewed and is appropriate. Review of Systems: General: No recent weight changes, no fever, no sleep disturbances Respiratory: No cough, no shortness of air, no recurring pulmonary infections Cardiovascular/peripheral vascular: No chest pain, no palpitations, no edema, no shortness of breath Gastrointestinal: No new onset incontinence, normal bowel movements reported Genitourinary: No new onset incontinence Musculoskeletal: Low back pain Psychiatric: [Normal mood/affect] Neurological: [Denies weakness in extremities], [denies balance issues] Objective:: Physical Exam: General: Alert and oriented x3, no acute distress, pleasant and cooperative Lungs: Respirations even and unlabored, symmetrical chest expansion Eyes: PERRL Musculoskeletal: Flexion and extension of lumbar [spine] somewhat guarded secondary to pain, positive Kemps test Neurological: Speech clear, no gross sensory deficit Assessment:: Low back pain with right-sided sacroiliitis, lumbar facet arthropathy Plan:: Patient continues to experience significant pain in her low back with limited range of motion. Patient had a positive Kemps test during today's visit. I have discussed with the patient that she may benefit from a lumbar medial branch block right-sided. Risk and benefits were discussed with the patient and she would like to proceed forward with this plan of care. Patient is not on any blood thinners. We will schedule the patient for a lumbar medial branch block right-sided L4-L5 and L5-S1. At her last visit she did get a 3-month supply of her Flexeril and does not require any additional refills at this time. Patient has been instructed to contact the clinic with any concerns before the next appointment. Dr. Quach has reviewed this note and agrees with this plan of care. This note was dictated using voice recognition software and make contain errors or omissions. [facility] Disclaimer: The information contained in this section may have been updated after the patient was seen, as this information can be updated by other users. Medical History Fatigue Hyperthyroidism Palpitations SVT (supraventricular tachycardia) Surgical History History of esophagogastroduodenoscopy (EGD) Family History Other Cancer Heart disease Seizures Social History Smoking Status: Current every day smoker tobacco type: e-cigarettes second hand exposure: No alcohol intake: never substance use type: denies use current occupational status: other Travel in the last 8 weeks: None household members: significant other housing: house caffeine: Yes
[2023-01-29 12:06] VITALS: BP 103/70; PULSE 68; RESP 18; O2SAT 100; BMI 16.5
== END ==
PROVIDERS: PCP Internal Medicine; Visit Provider Nurse Practitioner Family
DX: M47.816 Spondylosis without myelopathy or radiculopathy, lumbar region (principal); M54.50 Low back pain, unspecified; M46.1 Sacroiliitis, not elsewhere classified
CPT/HCPCS: 99212; G0463

== ENCOUNTER → 2023-01-29 22:00 | Outpatient (CLI) | payer OTHER, SELFPAY ==
[2023-01-29 20:24] LABS: Amphetamine/Metha Screen,Urine Negative ng/ml (<1000)
[2023-01-29 20:25] LABS: Barbiturates Screen,Urine Negative ng/ml (<200); Benzodiazepines Screen,Urine Negative ng/ml (<200)
[2023-01-29 20:27] LABS: Cocaine Screen,Urine Negative ng/ml (<300); Opiate Screen,Urine Negative ng/ml (<300)
[2023-01-29 20:28] LABS: Methadone Screen,Urine Negative ng/ml (<300)
[2023-01-29 20:29] LABS: Phencyclidine Screen,Urine Negative ng/ml (<25)
[2023-01-29 20:37] LABS: Cannabinoid Screen,Urine Negative ng/ml (<50)
== END ==
PROVIDERS: PCP Family Medicine; Visit Provider Family Medicine
DX: Z79.899 Other long term (current) drug therapy (principal)
CPT/HCPCS: 80305

== ENCOUNTER 2023-02-01 11:45 | Emergency (ER) | payer OTHER, SELFPAY ==
--- NOTE | 2023-02-01 11:44 | ECG_ITS ---
APPROVED REPORT Exam: Resting ECG HR:85 bpm ECG Measurements Heart Rate 85 AXES TN 121 P 78 QRSd 84 QRS 86 QT 354 T 57 QTc 396 Conclusion SINUS RHYTHM NONSPECIFIC T-WAVE ABNORMALITY BORDERLINE ECG UNCONFIRMED REPORT Electronically signed by : Jeremy Booth MD 02/02/2023 14:17:56
--- NOTE | 2023-02-01 11:46 | HMH.EDGENADL ---
Discharge Plan Disposition Patient Disposition: Home, Self-Care Condition: Good Prescriptions Prescriptions: No Action diltiazem HCl 240 mg capsule,extended release 24hr See Rx Instructions .ROUTE .COMPLEX Dose Instruction: TAKE ONE CAPSULE BY MOUTH EVERY DAY Rx Instructions: TAKE ONE CAPSULE BY MOUTH EVERY DAY famotidine [Pepcid] 40 mg tablet 40 mg PO DAILY Qty: 30 2RF Nexplanon 68 mg implant 68 mg subdermal DIRECTED clonazepam [Klonopin] 0.5 mg tablet 0.5 mg PO BID 30 Days Qty: 60 0RF Vraylar 1.5 mg capsule 1.5 mg PO DAILY Qty: 90 0RF estradiol 2 mg tablet 2 mg PO DAILY 30 Days Qty: 30 2RF lidocaine 5 % adhesive patch,medicated 1 patch topical DAILY Rx Instructions: leave on most painful area for up to 12 hrs diclofenac sodium 1 % gel 2 g topical QID Rx Instructions: apply to single elbow, wrist or hand; for hand includes palm/fingers/back of hand nadolol 80 mg tablet See Rx Instructions .ROUTE .COMPLEX Rx Instructions: TAKE ONE TABLET BY MOUTH EVERY DAY tizanidine [Zanaflex] 4 mg tablet 4 mg PO HS promethazine 12.5 mg tablet See Rx Instructions .ROUTE .COMPLEX Rx Instructions: TAKE ONE TABLET BY MOUTH THREE TIMES DAILY NEEDED FOR VOMITING cyclobenzaprine 10 mg tablet 10 mg PO HS PRN (Reason: muscle spasm) Qty: 30 2RF Referrals Follow up/Referrals: Provider,Referral, MD [Primary Care Provider] - See instructions Activity Restrictions/Add. Instructions Additional Instructions/Restrictions: Please take your famotidine approximately 30 to 60 minutes before a meal as this will help most with alleviating your symptoms related to acid reflux. Please follow-up with the assistant analyst. Please return with any new or worsening symptoms. Clinical Impressions Clinical Impression: Acute chest pain Discharge ED Provider: Nehemiah Seay General Adult HPI General Chief complaint: Chest Pain Stated complaint: cp Time Seen by Provider: 02/01/23 11:46 History of Present Illness HPI narrative: The patient presents with a chief complaint of a flutter sensation and difficulty breathing. They report a history of supraventricular tachycardia (SVT) and describe worsening symptoms today while at rest. The patient experienced an episode of sudden onset chest pain and difficulty breathing while sitting in a chair. She has had similar symptoms in the past associated with SVT that have been almost daily. They typically resolve spontaneously. She describes ongoing substernal chest pain that is nonpleuritic, nonexertional, nonreproducible in nature. The patient has a known history of hyperthyroidism, additionally takes estrogen, history of anxiety and chronic back pain. She has been having ongoing difficulty swallowing for several months, with a component of mild worsening over the past 1 to 2 weeks. She is able to tolerate liquids and solids and clinically is tolerating secretions. Of note, patient describes that she had a recent thyroid studies through [facility] endocrinology and has been holding her methimazole. No leg pain or leg swelling. Related Data Home Medications Medication Instructions Recorded Confirmed etonogestrel 68 mg subdermal 68 mg subdermal DIRECTED 05/01/22 01/29/23 implant (Nexplanon) Control diltiazem HCl 240 mg See Rx Instructions .Route 08/20/22 01/29/23 capsule,extended release 24 hr .COMPLEX heart rate diclofenac sodium 1 % topical gel 2 g topical QID Pain 10/02/22 01/29/23 lidocaine 5 % topical patch 1 patch topical DAILY Pain 10/02/22 01/29/23 nadolol 80 mg tablet See Rx Instructions .Route 11/01/22 01/29/23 .COMPLEX BLOOD PRESSURE tizanidine 4 mg tablet (Zanaflex) 4 mg PO HS Pain 11/01/22 01/29/23 promethazine 12.5 mg tablet See Rx Instructions .Route 11/26/22 01/29/23 .COMPLEX Nausea Previous Rx's Medication Instructions Recorded famotidine 40
[2023-02-01 12:00] VITALS: BP 114/73; PULSE 71; O2SAT 98
[2023-02-01 12:01] VITALS: BP 116/73; PULSE 87; RESP 19; TEMP 36.4; O2SAT 100; BMI 16.5
--- NOTE | 2023-02-01 12:03 | XR_ITS ---
PROCEDURE INFORMATION: Exam: XR Chest Exam date and time: 02/01/2023 12:37 PM Age: 22 years old Clinical indication: Other: Chest pain; Additional info: Chest pain, numbness in left arm, HX of svt TECHNIQUE: Imaging protocol: Radiologic exam of the chest. Views: 2 views. COMPARISON: CT CHEST WO CON 11/09/2022 2:23 AM FINDINGS: Lungs: No consolidation or lung nodules. Hyperinflation. Pleural spaces: No pleural effusion. No pneumothorax. Heart/Mediastinum: No abnormalities. No cardiomegaly. No pulmonary vascular congestion. Electronic monitoring device is superimposed upon the anterior left chest wall. Bones/joints: No fractures or bone lesions. IMPRESSION: Hyperinflation. No acute findings in the chest.
[2023-02-01 12:22] LABS: Basophils # 0.1 K/mm3 (0-0.2); Basophils % 0.9 % (0.1-2.0); Eosinophils # 0.1 K/mm3 (0.0-0.4); Eosinophils % 1.4 % (0.1-12.0); Hematocrit 43.9 % (37.0-47.0); Lymphocytes # 1.9 K/mm3 (0.7-4.5); Mean Corpuscular Hemoglobin 31.2 pg (27.0-31.2); Mean Corpuscular Volume 91.6 fl (81-99); Mean Platelet Volume 8.3 fl (7.4-10.4); Monocytes # 0.6 K/mm3 (0.1-1.0); Neutrophils # 4.1 K/mm3 (1.8-7.8); Neutrophils % 60.6 % (37.0-80.0); Platelet Count 374 K/mm3 (142-424); White Blood Count 6.7 K/mm3 (4.8-10.8)
[2023-02-01 12:28] LABS: Alanine Aminotransferase 35 U/L (12-78); Albumin Level 4.3 g/dl (3.5-5.0); Albumin/Globulin Ratio 1.5 (1.1-1.8); Alkaline Phosphatase 64 U/L (38-126); Anion Gap 10.5 mEq/L (5-15); Aspartate Amino Transferase 42 U/L (14-36); Bilirubin,Total 0.5 mg/dl (0.2-1.3); Blood Urea Nitrogen 9 mg/dl (7-17); Calcium 8.8 mg/dl (8.4-10.2); Carbon Dioxide 25 mmol/L (22.0-30.0); Chloride 106 mmol/L (98-107); Creatinine Clearance Estimated 105 mL/min (50-200); Estimated Glomerular Filt Rate 126 ml/min (>60); GFR (African American) 153 ML/MIN (>60); Globulin 2.9 g/dL (1.3-3.2); Glucose 81 mg/dl (74-100); Potassium 3.5 mmoL/L (3.5-5.1); Sodium 138 mmol/L (136-145); Total Protein,Serum 7.2 g/dl (6.3-8.2)
[2023-02-01 12:29] LABS: Magnesium 1.9 mg/dl (1.6-2.3)
[2023-02-01 12:30] VITALS: BP 102/56; PULSE 77; O2SAT 98
[2023-02-01 12:32] LABS: HCG Qualitative, Serum Negative (Negative)
[2023-02-01 12:33] LABS: D-Dimer 0.73 ug/mL (0.0-0.5)
--- NOTE | 2023-02-01 12:35 | CT_ITS ---
PROCEDURE INFORMATION: Exam: CTA Chest With Contrast Exam date and time: 02/01/2023 12:52 PM Age: 22 years old Clinical indication: Shortness of breath; Additional info: SOA, tachycardia, chest pain, elevated ddimer TECHNIQUE: Imaging protocol: Computed tomographic angiography of the chest with contrast. Exam focused on the arteries. 3D rendering (Not supervised by radiologist): MIP and/or 3D reconstructed images were created by the technologist. Radiation optimization: All CT scans at this facility use at least one of these dose optimization techniques: automated exposure control; mA and/or kV adjustment per patient size (includes targeted exams where dose is matched to clinical indication); or iterative reconstruction. Contrast material: ISOVUE; Contrast volume: 70 ml; Contrast route: INTRAVENOUS (IV); REPORTING DATA: Count of CT and Cardiac NM exams in prior 12 months: This patient has received 12 known CTs and 0 known cardiac nuclear medicine studies in the 12 months prior to the current study. COMPARISON: CT ANGIO CHEST 08/11/2022 11:24 PM FINDINGS: Pulmonary arteries: No pulmonary emboli. Aorta: No aortic aneurysm. No aortic dissection. Lungs: No consolidation. No masses. Lungs are hyperinflated. Pleural spaces: No pneumothorax. No pleural effusion. Heart: No cardiomegaly. No pericardial effusion. Lymph nodes: No enlarged lymph nodes. Calcified right hilar lymph nodes. Bones/joints: No acute fracture. Soft tissues: No soft tissue masses. IMPRESSION: 1. No pulmonary emboli. No aortic aneurysm or intimal dissection. 2. Hyperinflation. 3. No other acute findings in the chest.
[2023-02-01 12:45] LABS: Troponin I < 0.01 ng/ml (0.00-0.034)
[2023-02-01 12:47] LABS: Free T4 (Free Thyroxine) 1.45 ng/dl (0.78-2.19)
[2023-02-01 13:01] LABS: Thyroid Stimulating Hormone 0.36 uIU/mL (0.465-4.68)
[2023-02-01 13:30] VITALS: BP 99/63; PULSE 65; O2SAT 100
[2023-02-01 14:02] VITALS: BP 99/63; PULSE 89; RESP 16; TEMP 36.7
== END 2023-02-01 14:02 | disposition home or self-care (01) ==
PROVIDERS: Emergency Provider Emergency Medicine
DX: R07.2 Precordial pain (principal); K22.719 Barrett's esophagus with dysplasia, unspecified; F17.290 Nicotine dependence, other tobacco product, uncomplicated; E05.90 Thyrotoxicosis, unspecified without thyrotoxic crisis or storm; Z86.79 Personal history of other diseases of the circulatory system
CPT/HCPCS: 71046; 71275; 80053; 83735; 84439; 84443; 84484; 84703; 85025; 85378; 93005; 99285; Q9967

== ENCOUNTER 2023-02-11 09:51 | Day surgery (SDC) | payer OTHER, SELFPAY ==
[2023-02-11 09:56] VITALS: BP 100/63; PULSE 90; RESP 18; TEMP 36.6; O2SAT 99; BMI 16.5
[2023-02-11 10:12] VITALS: BP 114/51; PULSE 82; RESP 18; O2SAT 97
[2023-02-11 10:13] VITALS: BP 114/51; PULSE 82; RESP 18; O2SAT 97
--- NOTE | 2023-02-11 10:20 | EXP.PAIN.PRO ---
Procedure Date: 02/11/23 Time: 10:10 Anesthesiologist:: Marcus Morrissey CRNA Complications:: None Pre-procedure Diagnosis:: Chronic low back right-sided pain. Post-procedure Diagnosis:: Same. Indications for Procedure:: Patient is a pleasant 22-year-old female that comes our clinic today for a right L4-5 and L5-S1 medial branch blocks/facet injection. Patient has tried and failed right sacroiliac joint injection. Right SI joint injection provided 2 to 3 days of relief. However, all pain returned. Patient's lumbar MRI is normal. Patient's lumbar CT scan is normal. Procedure Details:: Details of the procedure explained to the patient. The patient taken procedure room placed in the prone position on fluoroscopy table. The area over the lumbar spine was cleansed using chlorhexidine's cleansing solution. Using fluoroscopy guidance a marker was placed over the right L4-5 and L5-S1 facet joints. Each joint was accessed with ease using a 22-gauge 3 inch needle. Each joint was injected with 1 cc of 1% lidocaine containing 10 mg of Depo-Medrol. Patient tolerated procedure without difficulty. There are no complications. Plan and Disposition:: Patient was discharged without incident.
[2023-02-11 10:22] VITALS: BP 110/72; PULSE 79; O2SAT 99
== END 2023-02-11 10:20 | disposition home or self-care (01) ==
PROVIDERS: PCP Internal Medicine; Visit Provider Nurse Anesthetist, Certified Registered
DX: M47.816 Spondylosis without myelopathy or radiculopathy, lumbar region (principal); M54.50 Low back pain, unspecified; G89.29 Other chronic pain
CPT/HCPCS: 64493; 64494; J1040

== ENCOUNTER 2023-02-26 16:53 | Outpatient (CLI) | payer MEDICARE, OTHER, SELFPAY ==
[2023-02-26 19:43] LABS: Amphetamine/Metha Screen,Urine Negative ng/ml (<1000); Barbiturates Screen,Urine Negative ng/ml (<200); Benzodiazepines Screen,Urine Negative ng/ml (<200); Cannabinoid Screen,Urine Negative ng/ml (<50); Cocaine Screen,Urine Negative ng/ml (<300); Methadone Screen,Urine Negative ng/ml (<300); Opiate Screen,Urine Negative ng/ml (<300); Phencyclidine Screen,Urine Negative ng/ml (<25)
[2023-03-03 13:48] LABS: Alprazolam Negative (Cutoff=100); Benzodiazepines Positive ng/mL (Cutoff=100); Clonazepam Positive (.); Clonazepam Confirm 728 ng/mL (Cutoff=100); Flurazepam Negative (Cutoff=100); Lorazepam Negative (Cutoff=100); Midazolam Negative (Cutoff=100); Temazepam Negative (Cutoff=100); Triazolam Negative (Cutoff=100)
== END 2023-02-26 23:59 ==
PROVIDERS: PCP Internal Medicine; Visit Provider Family Medicine
DX: Z79.899 Other long term (current) drug therapy (principal); N39.0 Urinary tract infection, site not specified; B96.29 Other Escherichia coli [E. coli] as the cause of diseases classified elsewhere; B95.1 Streptococcus, group B, as the cause of diseases classified elsewhere
CPT/HCPCS: 80307; 80346; 87086

== ENCOUNTER → 2023-02-28 11:00 | Outpatient (POV) | payer MEDICARE, OTHER, SELFPAY ==
[2023-02-28 11:15] VITALS: BP 92/69; PULSE 83; RESP 18; O2SAT 98; BMI 16.2
--- NOTE | 2023-02-28 13:29 | A.OFFVIS_ITS ---
[facility] Pain Management SOAP Note Subjective:: Patient is a pleasant 22-year-old female who presents today for follow-up of her first diagnostic lumbar medial branch block right-sided L4-L5 and L5-S1 on 02/11/2023. We are currently treating the patient for low back pain, right- sided sacroiliitis, lumbar facet arthropathy. Today she rates her pain an 8 out of 10. Patient denies any new trauma or injury. She states that she has had at least 50% improvement following this injection however it only lasted approximately 1 day. She states during that 1 day she was able to increase her activity and did feel overall more functional. she does state that she is back to her baseline. She states she continues to have trouble and worsening pain with bending, twisting or lifting movements. Patient does state the pain interferes with her ability perform activities of daily living such as cooking or cleaning or even ambulation and sleeping. Patient has been dealing with this for several months and feels like it is progressively worsening over time. Patient has had physical therapy in the past. She is currently managed with Flexeril 10 mg at bedtime and compounded cream. She is prescribed clonazepam 0.5 mg twice a day from her PCP. Her Colt has been reviewed and is appropriate. Review of Systems: General: No recent weight changes, no fever, no sleep disturbances Respiratory: No cough, no shortness of air, no recurring pulmonary infections Cardiovascular/peripheral vascular: No chest pain, no palpitations, no edema, no shortness of breath Gastrointestinal: No new onset incontinence, normal bowel movements reported Genitourinary: No new onset incontinence Musculoskeletal: Low back pain Psychiatric: [Normal mood/affect] Neurological: [Denies weakness in extremities], [denies balance issues] Objective:: Physical Exam: General: Alert and oriented x3, no acute distress, pleasant and cooperative Lungs: Respirations even and unlabored, symmetrical chest expansion Eyes: PERRL Musculoskeletal: Flexion and extension of lumbar [spine] somewhat guarded secondary to pain, [antalgic gait noted] positive Kemps test Neurological: Speech clear, no gross sensory deficit Assessment:: Low back pain with lumbar facet arthropathy, right-sided sacroiliitis Plan:: Patient is experiencing worsening pain in her low back with limited range of motion and a positive Kemps test. I have discussed with patient that she may benefit from a second diagnostic lumbar medial branch block. Risk and benefits were discussed with the patient and she would like to proceed forward with this plan of care. Patient did have 50% improvement lasting 24 hours with her first diagnostic block. Patient is not on any blood thinners. I have also discussed with patient that she may benefit from physical therapy evaluation and treatment. I will order this at today's visit. Patient will be scheduled for her second diagnostic lumbar medial branch block right-sided L4-L5 and L5-S1. This injection will be done under fluoroscopic guidance. Patient has been instructed to contact the clinic with any concerns before the next appointment. Dr. Quach has reviewed this note and agrees with this plan of care. This note was dictated using voice recognition software and make contain errors or omissions. [facility] Disclaimer: The information contained in this section may have been updated after the patient was seen, as this information can be updated by other users. Medical History (Updated 02/26/23 @ 13:27 by Wilma Infante APRN) Acute bronchitis Acute viral syndrome Bronchitis COVID-19 Exposure to COVID-19 virus Fatigue First in adolescent 16 years of age or older Hyperthyroidism Palpitations Reactive airway disease with acute exacerbation Small for gestational age fetus SVT (supraventricular tachycardia) UTI (urinary tract infection) Viral infection Surgical History History of esophagogastroduodenoscopy (EGD) Family History Other Cancer Heart disease Seizures Social History Smoking Status: Current every day smoker tobacco type: e-cigarettes second hand exposure: No alcohol intake: never substance use type: denies use current occupational status: other Travel in the last 8 weeks: None household members: significant other housing: house caffeine: Yes
== END ==
PROVIDERS: PCP Internal Medicine; Visit Provider Nurse Practitioner Family
DX: M47.896 Other spondylosis, lumbar region (principal); M46.1 Sacroiliitis, not elsewhere classified
CPT/HCPCS: 99212; G0463

== ENCOUNTER 2023-02-28 16:26 | Emergency (ER) | payer MEDICARE, OTHER, SELFPAY ==
[2023-02-28 16:27] VITALS: BP 110/76; PULSE 59; RESP 18; TEMP 36.6; O2SAT 100; BMI 16.2
[2023-02-28 17:14] LABS: Microscopic, Urine URINE MICROSCOPIC (MICROSCOPIC)
--- NOTE | 2023-02-28 17:20 | PC.NURSE ---
IV STARTED, LAB AT BEDSIDE TO COLLECT TYPE AND SCREEN
[2023-02-28 17:24] LABS: Appearance,Urine CLEAR (Clear); Bilirubin,Urine Negative (Negative); Blood, Urine 2+ (Negative); Color,Urine YELLOW (Yellow); Glucose,Urine (UA) Negative (Negative); Ketones,Urine TRACE (Negative); Leukocyte Esterase,Urine Negative (Negative); Nitrate,Urine Negative (Negative); Protein,Urine Negative (Negative); Specific Gravity, Urine 1.025 (1.005-1.030)
--- NOTE | 2023-02-28 17:26 | PC.NURSE ---
PT PROVIDED PAD AND ICE WATER, NO FURTHER NEEDS AT THIS TIME
[2023-02-28 17:32] LABS: Chloride 104 mmol/L (98-107); Potassium 3.9 mmoL/L (3.5-5.1); Sodium 140 mmol/L (136-145)
[2023-02-28 17:34] LABS: Blood Urea Nitrogen 11 mg/dl (7-17); Creatinine Clearance Estimated 89 mL/min (50-200); Estimated Glomerular Filt Rate 106 ml/min (>60); GFR (African American) 128 ML/MIN (>60)
[2023-02-28 17:35] LABS: Alanine Aminotransferase 30 U/L (12-78); Albumin Level 4.7 g/dl (3.5-5.0); Albumin/Globulin Ratio 1.5 (1.1-1.8); Alkaline Phosphatase 85 U/L (38-126); Anion Gap 12.9 mEq/L (5-15); Aspartate Amino Transferase 43 U/L (14-36); Bilirubin,Total 0.6 mg/dl (0.2-1.3); Calcium 9.4 mg/dl (8.4-10.2); Carbon Dioxide 27 mmol/L (22.0-30.0); Globulin 3.2 g/dL (1.3-3.2); Glucose 97 mg/dl (74-100); Total Protein,Serum 7.9 g/dl (6.3-8.2)
[2023-02-28 17:39] LABS: INR 0.99 (0.9-1.1); Prothrombin Time 10.7 seconds (10.1-12.5)
[2023-02-28 17:39] LABS: WBC,Urine Occasional #/hpf (0-3)
[2023-02-28 17:40] LABS: Bacteria,Urine Trace /lpf; Mucus,Urine 2+ /lpf
[2023-02-28 17:42] LABS: Basophils # 0.1 K/mm3 (0-0.2); Basophils % 0.6 % (0.1-2.0); Eosinophils # 0.1 K/mm3 (0.0-0.4); Eosinophils % 1.3 % (0.1-12.0); Hematocrit 47.8 % (37.0-47.0); Hemoglobin 16.1 g/dL (12.2-16.2); Lymphocytes # 2.5 K/mm3 (0.7-4.5); Lymphocytes % 27.1 % (10-50); Mean Corpuscular HGB Conc 33.6 g/dL (31.8-35.4); Mean Corpuscular Hemoglobin 32.5 pg (27.0-31.2); Mean Corpuscular Volume 96.6 fl (81-99); Mean Platelet Volume 7.9 fl (7.4-10.4); Monocytes # 0.6 K/mm3 (0.1-1.0); Monocytes % 6.9 % (1.7-9.3); Neutrophils # 5.9 K/mm3 (1.8-7.8); Neutrophils % 64.2 % (37.0-80.0); Platelet Count 374 K/mm3 (142-424); Red Blood Count 4.95 M/mm3 (4.20-5.40); Red Cell Distribution Width 11.9 % (11.5-17.5); White Blood Count 9.1 K/mm3 (4.8-10.8)
[2023-02-28 18:00] LABS: HCG Qualitative, Serum Negative (Negative)
[2023-02-28 18:06] LABS: Thyroid Stimulating Hormone 0.49 uIU/mL (0.465-4.68)
[2023-02-28 18:19] LABS: Free T4 (Free Thyroxine) 1.42 ng/dl (0.78-2.19)
[2023-02-28 19:10] VITALS: BP 112/70; PULSE 70; RESP 16; TEMP 36.6; O2SAT 100
--- NOTE | 2023-03-01 14:55 | ED_ITS ---
Discharge Plan Disposition Patient Disposition: Home, Self-Care Condition: Good Prescriptions Prescriptions: No Action diltiazem HCl 240 mg capsule,extended release 24hr See Rx Instructions .ROUTE .COMPLEX Dose Instruction: TAKE ONE CAPSULE BY MOUTH EVERY DAY Rx Instructions: TAKE ONE CAPSULE BY MOUTH EVERY DAY clonazepam [Klonopin] 0.5 mg tablet 0.5 mg PO BID 30 Days Qty: 60 0RF Nexplanon 68 mg implant 68 mg subdermal DIRECTED Vraylar 1.5 mg capsule 1.5 mg PO DAILY Qty: 90 0RF estradiol 2 mg tablet 2 mg PO DAILY 30 Days Qty: 30 2RF nitrofurantoin monohyd/m-cryst [Macrobid] 100 mg capsule 100 mg PO BID 5 Days Qty: 10 0RF Rx Instructions: must administer with a meal/food lidocaine 5 % adhesive patch,medicated 1 patch topical DAILY Rx Instructions: leave on most painful area for up to 12 hrs diclofenac sodium 1 % gel 2 g topical QID Rx Instructions: apply to single elbow, wrist or hand; for hand includes palm/fingers/back of hand nadolol 80 mg tablet See Rx Instructions .ROUTE .COMPLEX Rx Instructions: TAKE ONE TABLET BY MOUTH EVERY DAY tizanidine [Zanaflex] 4 mg tablet 4 mg PO HS cyclobenzaprine 10 mg tablet 10 mg PO HS PRN (Reason: muscle spasm) Qty: 30 2RF famotidine 40 mg tablet 40 mg PO DAILY Referrals Follow up/Referrals: Blade Tang DO [Primary Care Provider] - See instructions Activity Restrictions/Add. Instructions Additional Instructions/Restrictions: Please follow-up with your [facility] doctor. Please return if you continue to have worsening pain, continued bleeding, nausea, vomiting. It is likely that your symptoms are attributable to breakthrough bleeding from your IUD. Your labs are reassuring at this time Clinical Impressions Clinical Impression: Breakthrough bleeding Instructions Patient Instructions: DI for Vaginal Bleeding Discharge ED Provider: Nehemiah Seay Adult [facility] General Chief complaint: Vaginal Bleeding Stated complaint: vaginal bleeding Time Seen by Provider: 02/28/23 16:46 Mode of Arrival: Ambulatory Source of Information: Patient Limitations: No Limitations Description of Symptoms (Recalled from ER Triage Doc. by RN): Patient reports vaginal bleeding x 1 week. States she does not think it is her period as she has a nexplanon implant. Does state that she was seen by Dr. Tang on Friday and diagnosed with a UTI. States she started her antibiotic today. History of Present Illness HPI narrative: Patient reports vaginal bleeding that was gradual in onset starting 1 week ago, she has difficulty quantifying the number of pads or tampons that she has required over this time period. She reports associated mild suprapubic abdominal pain that is crampy in nature and nonradiating. No dysuria but for unknown reasons was prescribed antibiotic for suspected UTI recently. No syncope or presyncope. No associated nausea or vomiting. Patient's vaginal bleeding preceded her abdominal pain. Has no known history of ovarian pathology. Does have Nexplanon IUD but has not previously experienced breakthrough bleeding. Last menstrual period approximately 2 weeks ago. No abdominal surgical history. Related Data Home Medications Medication Instructions Recorded Confirmed etonogestrel 68 mg subdermal 68 mg subdermal DIRECTED 05/01/22 02/28/23 implant (Nexplanon) Control diltiazem HCl 240 mg See Rx Instructions .Route 08/20/22 02/28/23 capsule,extended release 24 hr .COMPLEX heart rate diclofenac sodium 1 % topical gel 2 g topical QID Pain 10/02/22 02/28/23 lidocaine 5 % topical patch 1 patch topical DAILY Pain 10/02/22 02/28/23 nadolol 80 mg tablet See Rx Instructions .Route 11/01/22 02/28/23 .COMPLEX BLOOD PRESSURE tizanidine 4 mg tablet (Zanaflex) 4 mg PO HS Pain 11/01/22 02/28/23 famotidine 40 mg tablet 40 mg PO DAILY 02/11/23 02/28/23 Previous Rx's Medication Instructions Recorded cariprazine 1.5 mg capsule 1.5 mg PO DAILY mood #90 caps 12/17/22 (Vraylar) cyclobenzaprine 10 mg tablet 10 mg PO HS PRN muscle spasm #30 01/02/23 tabs estradiol 2 mg tablet 2 mg PO DAILY suppliment 30 days 01/06/23 #30 tabs clonazepam 0.5 mg tablet (Klonopin) 0.5 mg PO BID Anxiety 30 days #60 02/26/23 tabs nitrofurantoin 100 mg PO BID 5 days #10 caps 02/28/23 monohydrate/macrocrystals 100 mg capsule (Macrobid) Allergies Allergy/AdvReac Type Severity Reaction Status Date / Time No Known Allergies Allergy Verified 02/26/23 10:31 [facility] Disclaimer: The information contained in this section may have been updated after the patient was seen, as this information can be updated by other users. Medical History (Updated 02/28/23 @ 18:57 by Nehemiah Seay MD) Acute bronchitis Acute viral syndrome Bronchitis COVID-19 Exposure to COVID-19 virus Fatigue First in adolescent 16 years of age or older Hyperthyroidism Palpitations Reactive airway disease with acute exacerbation Small for gestational age fetus SVT (supraventricular tachycardia) UTI (urinary tract infection) Viral infection Surgical History History of esophagogastroduodenoscopy (EGD) Family History Other Cancer Heart disease Seizures Social History Smoking Status: Current every day smoker tobacco type: e-cigarettes second hand exposure: No alcohol intake: never substance use type: denies use current occupational status: other Travel in the last 8 weeks: None household members: significant other housing: house caffeine: Yes ROS Obtained: Yes Systems reviewed as appropriate & no additional complaints except as documented As per HPI Physical Exam General General appearance: alert and in no apparent distress Head Head exam: atraumatic and normocephalic Eye Eye exam: Present normal appearance Neck Neck exam: Present normal inspection Chest Chest inspection: Present normal inspection and symmetric chest wall rise Respiratory Respiratory exam: Present normal lung sounds bilaterally; Absent respiratory distress Cardiovascular Cardiovascular exam: Present regular rate and normal rhythm Abdominal Exam Abdominal exam: Present soft Abdominal tenderness: Present suprapubic Neurological Exam Neurological exam: Present alert and oriented X3 Psychiatric Psychiatric exam: Present normal affect and normal mood Skin Skin exam: Present warm and dry Medical Decision Making Medical Records Medical records reviewed: Yes I reviewed the patient's medical records. Colt Inquiry Pt receiving controlled substance: No Vital Signs: 02/28/23 16:27 02/28/23 19:10 Temperature 97.8 F 97.8 F Temperature Source Oral Pulse Rate 70 Pulse Rate [Radial] 59 L Respiratory Rate 18 16 Blood Pressure 112/70 Blood Pressure [Right Arm] 110/76 Blood Pressure Mean [Right Arm] 87 Blood Pressure Source [Right Arm] Automatic Cuff Blood Pressure Position [Right Arm] Sitting 02 Sat by Pulse Oximetry 100 Oxygen Delivery Method Room Air Room Air Lab Data Lab Results 02/28/23 16:46: Urine Color Yellow, Urine Appearance Clear, Urine pH 6.0, Ur Specific Eros 1.025, Urine Protein Negative, Urine Glucose (UA) Negative, Urine Ketones Trace, Urine Blood 2+, Urine Nitrate Negative, Urine Bilirubin Neg ative, Urine Urobilinogen 1.0, Ur Leukocyte Esterase Negative, Urine RBC 10-20, Urine WBC Occasional, Ur Squamous Epith Cells 5-10, Urine Bacteria Trace, Urine Mucus 2+ 02/28/23 17:16: WBC 9.1, RBC 4.95, Hgb 16.1, Hct 47.8 H, MCV 96.6, MCH 32.5 H, MCHC 33.6, RDW 11.9, Plt Count 374, MPV 7.9, Neut % (Auto) 64.2, Lymph % (Auto) 27.1, [place] % (Auto) 6.9, Eos % (Auto) 1.3, Baso % (Auto) 0.6, Neut # (Auto) 5.9, Lymph # (Auto) 2.5, [place] # (Auto) 0.6, Eos # (Auto) 0.1, Baso # (Auto) 0.1, PT 10.7, INR 0.99, Sodium 140, Potassium 3.9, Chloride 104, Carbon Dioxide 27, Anion Gap 12.9, BUN 11, Creatinine 0.70, Estimated Creat Clear 89, Estimated GFR 106, Est GFR ( Amer) 128, Glucose 97, Calcium 9.4, Total Bilirubin 0.6, AST 43 H, ALT 30, Alkaline Phosphatase 85, Total Protein 7.9, Albumin 4.7, Globulin 3.2, Albumin/Globulin Ratio 1.5, TSH 0.49, Free T4 1.42, Serum HCG, Qual Negative, Blood Type O Positive 02/28/23 17:16 02/28/23 17:16 Orders (Tests/Meds): ORDERS Category Date Time Status ABO/RH Type Stat BBK 02/28/23 17:16 Completed CBC w/Auto Diff [Complete Blood Count Auto Diff] Stat Lab 02/28/23 17:16 Completed CMP [Comprehensive Metabolic Panel] Stat Lab 02/28/23 17:16 Completed Free T4 (Free Thyroxine) Stat Lab 02/28/23 17:16 Completed HCG Qualitative, Serum Stat Lab 02/28/23 17:16 Completed PT INR [Prothrombin Time INR] Stat Lab 02/28/23 17:16 Completed TSH [Thyroid Stimulating Hormone] Stat Lab 02/28/23 17:16 Completed Urinalysis and Microscopic Stat Lab 02/28/23 16:46 Completed Medical Decision Narrative: Patient with history and exam per above presenting for evaluation of vaginal bleeding Diagnoses considered include fibroids, adenomyosis, polyps, breakthrough bleeding on contraceptives, menstruation with coagulopathy, will obtain serum hCG to screen for ectopic or miscarriage, patient's history of present illness is not consistent with classic ovarian torsion ED workup and treatment included: ORDERS Category Date Time Status ABO/RH Type Stat BBK 02/28/23 17:16 Completed CBC w/Auto Diff [Complete Blood Count Auto Diff] Stat Lab 02/28/23 17:16 Completed CMP [Comprehensive Metabolic Panel] Stat Lab 02/28/23 17:16 Completed Free T4 (Free Thyroxine) Stat Lab 02/28/23 17:16 Completed HCG Qualitative, Serum Stat Lab 02/28/23 17:16 Completed PT INR [Prothrombin Time INR] Stat Lab 02/28/23 17:16 Completed TSH [Thyroid Stimulating Hormone] Stat Lab 02/28/23 17:16 Completed Urinalysis and Microscopic Stat Lab 02/28/23 16:46 Completed Labs were independently interpreted by me, significant for test negative, hematuria, thyroid studies within normal limits, hemoglobin within normal limits Symptoms at this time are thought to be most consistent with breakthrough bleeding, which is well-documented side effect of Nexplanon I discussed my clinical impression with patient and answered all questions. At this time, given reassuring workup and exam, I discussed that I have a low index of suspicion for any acute pathology necessitating inpatient management. Specific return precautions were given, with understanding and agreement. Patient will follow-up closely if she has continued or worsening symptoms, hCG and clinical presentation is not concerning at this time for ectopic however if she continues to experience similar symptoms should return for repeat evaluation. Critical Care Critical Care Time Critical Care Time: No
== END 2023-02-28 19:11 | disposition home or self-care (01) ==
PROVIDERS: Emergency Provider Emergency Medicine; PCP Internal Medicine
DX: N93.9 Abnormal uterine and vaginal bleeding, unspecified (principal); R10.30 Lower abdominal pain, unspecified; I47.10 Supraventricular tachycardia, unspecified; E05.80 Other thyrotoxicosis without thyrotoxic crisis or storm; F17.290 Nicotine dependence, other tobacco product, uncomplicated; M47.896 Other spondylosis, lumbar region; M46.1 Sacroiliitis, not elsewhere classified
CPT/HCPCS: 80053; 81001; 84439; 84443; 84703; 85025; 85610; 86900; 86901; 99212; 99285; G0463

== ENCOUNTER 2023-03-10 08:22 | Outpatient (RCR) | payer MEDICARE, OTHER, SELFPAY ==
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
== END 2023-03-10 10:00 | disposition home or self-care (01) ==
LOC: PT 08:22
PROVIDERS: PCP Internal Medicine; Visit Provider Nurse Practitioner Family
DX: M54.50 Low back pain, unspecified (principal)
CPT/HCPCS: 97163

== ENCOUNTER → 2023-03-21 09:59 | Outpatient (POV) | payer MEDICARE, OTHER, SELFPAY ==
--- NOTE | 2023-03-21 10:44 | A.OFFVIS_ITS ---
[facility] Pain Management SOAP Note Subjective:: Patient is a pleasant 22-year-old female who presents today for insurance denial of her second lumbar medial branch block. We are currently treating the patient for low back pain with lumbar facet arthropathy. Today she rates her pain a 9 out of 10. Patient denies any new trauma or injury. She states she continues to have chronic low back pain that does not radiate into her legs. Patient did previously have a lumbar medial branch block right-sided L4-L5 and L5-S1 back in January that did provide 50% improvement only lasting 1 day. Patient states that she continues to have this pain only on the right side and that it does affect her ability perform activities of daily living such as cooking and cleaning. Patient has tried physical therapy. Patient is currently managed with Flexeril 10 mg at night and compounded cream from our office and clonazepam 0.5 mg twice a day from her PCP. Her Colt has been reviewed and is appropriate. Review of Systems: General: No recent weight changes, no fever, no sleep disturbances Respiratory: No cough, no shortness of air, no recurring pulmonary infections Cardiovascular/peripheral vascular: No chest pain, no palpitations, no edema, no shortness of breath Gastrointestinal: No new onset incontinence, normal bowel movements reported Genitourinary: No new onset incontinence Musculoskeletal: Low back pain Psychiatric: [Normal mood/affect] Neurological: [Denies weakness in extremities], [denies balance issues] Objective:: Physical Exam: General: Alert and oriented x3, no acute distress, pleasant and cooperative Lungs: Respirations even and unlabored, symmetrical chest expansion Eyes: PERRL Musculoskeletal: Flexion and extension of lumbar [spine] somewhat guarded secondary to pain, [antalgic gait noted] positive Kemps test Neurological: Speech clear, no gross sensory deficit Assessment:: Low back pain with lumbar facet arthropathy Plan:: Patient continues to experience significant pain in her low back along the right side with limited range of motion and a positive Kemps test. Patient's insurance was denied the injection due to not having 80% improvement. Patient does state that she would not say that that injection gave more than 50%. I have discussed with the patient that I will change her muscle relaxer to baclofen 10 mg 3 times daily and provide a 2-week supply of this medication. Patient will return to clinic in 2 weeks for reevaluation of symptoms and plan of care. Patient has been instructed to contact the clinic with any concerns before the next appointment. Dr. Quach has reviewed this note and agrees with this plan of care. This note was dictated using voice recognition software and make contain errors or omissions. [facility] Disclaimer: The information contained in this section may have been updated after the patient was seen, as this information can be updated by other users. Medical History Hyperthyroidism Palpitations Reactive airway disease with acute exacerbation SVT (supraventricular tachycardia) Surgical History History of esophagogastroduodenoscopy (EGD) Family History Other Cancer Heart disease Seizures Social History Smoking Status: Current every day smoker tobacco type: e-cigarettes second hand exposure: No alcohol intake: never substance use type: denies use current occupational status: other Travel in the last 8 weeks: None household members: significant other housing: house caffeine: Yes
[2023-03-21 12:51] VITALS: BP 110/73; PULSE 75; RESP 18; O2SAT 99; BMI 16.3
== END ==
PROVIDERS: PCP Internal Medicine; Visit Provider Nurse Practitioner Family
DX: M47.896 Other spondylosis, lumbar region (principal); M54.50 Low back pain, unspecified
CPT/HCPCS: 99212; G0463

== ENCOUNTER 2023-03-24 09:50 | Emergency (ER) | payer MEDICARE, OTHER, SELFPAY ==
[2023-03-24 10:40] VITALS: BP 120/78; PULSE 150; RESP 21; TEMP 38.1; O2SAT 98; BMI 16.9
--- NOTE | 2023-03-24 10:55 | ED_ITS ---
Discharge Plan Disposition Patient Disposition: Home, Self-Care Condition: Good Prescriptions Prescriptions: New oseltamivir [Tamiflu] 75 mg capsule 75 mg PO Q12H 5 Days Qty: 10 0RF ondansetron 4 mg tablet,disintegrating 4 mg PO Q8H PRN (Reason: nausea and vomiting) Qty: 10 0RF No Action diltiazem HCl 240 mg capsule,extended release 24hr See Rx Instructions .ROUTE .COMPLEX Dose Instruction: TAKE ONE CAPSULE BY MOUTH EVERY DAY Rx Instructions: TAKE ONE CAPSULE BY MOUTH EVERY DAY clonazepam [Klonopin] 0.5 mg tablet 0.5 mg PO BID 30 Days Qty: 60 0RF bupropion HCl [Wellbutrin XL] 150 mg tablet extended release 24 hr 150 mg PO DAILY Qty: 30 2RF Nexplanon 68 mg implant 68 mg subdermal DIRECTED estradiol 2 mg tablet 2 mg PO DAILY 30 Days Qty: 30 2RF nitrofurantoin monohyd/m-cryst [Macrobid] 100 mg capsule 100 mg PO BID 5 Days Qty: 10 0RF Rx Instructions: must administer with a meal/food Vraylar 1.5 mg capsule See Rx Instructions .ROUTE .COMPLEX Qty: 90 0RF Dose Instruction: TAKE ONE CAPSULE BY MOUTH EVERY DAY FOR mood Rx Instructions: TAKE ONE CAPSULE BY MOUTH EVERY DAY FOR mood lidocaine 5 % adhesive patch,medicated 1 patch topical DAILY Rx Instructions: leave on most painful area for up to 12 hrs diclofenac sodium 1 % gel 2 g topical QID Rx Instructions: apply to single elbow, wrist or hand; for hand includes palm/fingers/back of hand baclofen 10 mg tablet 10 mg PO TID PRN (Reason: muscle spasm) Qty: 42 0RF nadolol 80 mg tablet See Rx Instructions .ROUTE .COMPLEX Rx Instructions: TAKE ONE TABLET BY MOUTH EVERY DAY tizanidine [Zanaflex] 4 mg tablet 4 mg PO HS cyclobenzaprine 10 mg tablet 10 mg PO HS PRN (Reason: muscle spasm) Qty: 30 2RF famotidine 40 mg tablet 40 mg PO DAILY Referrals Follow up/Referrals: Blade Tang DO [Primary Care Provider] - See instructions Activity Restrictions/Add. Instructions Additional Instructions/Restrictions: * Start Tamiflu today if you are going to take it. Discussed risk and possible benefits. * Too late to start Tamiflu. Most effective when started within 48 hours of symptoms onset * Lots of rest * Increase Fluids water, Gatorade, powerade, pedialyte,if infant/toddler/child * Alternate Tylenol and / or ibuprofen as discussed for fever, aches, chills Follow up IMMEDIATELY with your family doctor for new or worsening Symptoms OR no noticeable improvement over the next 48-72 hours, 911 for difficulty or breathing * You or your child area contagious until no fever, aches, chills for 24 hours with medication for symptoms * Help Prevent the spread of influenza: * ?Wash your hands often. Use soap and water. Wash your hands after you use the bathroom, change a child's diapers, or sneeze. Wash your hands before you prepare or eat food. Use gel hand cleanser that has 60% alcohol, when soap and water are not available. Do not touch your eyes, nose, or mouth unless you have washed your hands first. * Cover your mouth when you sneeze or cough. Cough into a tissue or the bend of your arm. If you use a tissue, throw it away immediately and wash your hands. * Clean shared items with a germ-killing lining cleaner. Clean table surfaces, doorknobs, and light switches. Do not share towels, silverware, and dishes with people who are sick. Wash bed sheets, towels, silverware, and dishes with soap and water. * Wear a mask over your mouth and nose if you are sick. The face mask may help protect others from becoming infected with the flu. Wear the mask when in common areas of your home or if you seek care with a healthcare provider. * Stay away from others if you are sick. Stay at home until 24 hours after your fever and symptoms are gone. Clinical Impressions Clinical Impression: Influenza Stand Alone Forms Stand Alone Forms: Work/School Release Instructions Patient Instructions: Influenza, DI for Influenza -- Adult Discharge ED Provider: Tracey Babin [facility] General Stated complaint: cough, vomitting, body aches Mode of Arrival: Ambulatory Source of Information: Patient Limitations: No Limitations Time Seen by Provider: 03/24/23 10:55 Description of Symptoms (Recalled from Triage Doc. by RN): PATIENT C/O COUGH, BODY ACHES, AND VOMITING SINCE YESTERDAY HEENT Symptoms (Recalled from RN notes): No Resp Symptoms (Recalled from RN notes): Yes Skin Symptoms (Recalled from RN notes): No MS Symptoms (Recalled from RN notes): No Functional Status (Recalled from RN notes): WNL History of Present Illness Provider Complaint: Patient states that she started feeling bad yesterday with fever, chills, body aches and vomiting States that was sick recently with something and now she isnt feeling well so she came in Related Data Home Medications Medication Instructions Recorded Confirmed etonogestrel 68 mg subdermal 68 mg subdermal DIRECTED 05/01/22 03/21/23 implant (Nexplanon) Control diltiazem HCl 240 mg See Rx Instructions .Route 08/20/22 03/21/23 capsule,extended release 24 hr .COMPLEX heart rate diclofenac sodium 1 % topical gel 2 g topical QID Pain 10/02/22 03/21/23 lidocaine 5 % topical patch 1 patch topical DAILY Pain 10/02/22 03/21/23 nadolol 80 mg tablet See Rx Instructions .Route 11/01/22 03/21/23 .COMPLEX BLOOD PRESSURE tizanidine 4 mg tablet (Zanaflex) 4 mg PO HS Pain 11/01/22 03/21/23 famotidine 40 mg tablet 40 mg PO DAILY 02/11/23 03/21/23 Previous Rx's Medication Instructions Recorded cyclobenzaprine 10 mg tablet 10 mg PO HS PRN muscle spasm #30 01/02/23 tabs estradiol 2 mg tablet 2 mg PO DAILY suppliment 30 days 01/06/23 #30 tabs clonazepam 0.5 mg tablet (Klonopin) 0.5 mg PO BID Anxiety 30 days #60 02/26/23 tabs nitrofurantoin 100 mg PO BID 5 days #10 caps 02/28/23 monohydrate/macrocrystals 100 mg capsule (Macrobid) bupropion HCl 150 mg 24 hr tablet, 150 mg PO DAILY #30 tabs 03/05/23 extended release (Wellbutrin XL) cariprazine 1.5 mg capsule See Rx Instructions .Route 03/13/23 (Vraylar) .COMPLEX #90 caps baclofen 10 mg tablet 10 mg PO TID PRN muscle spasm #42 03/21/23 tabs ondansetron 4 mg disintegrating 4 mg PO Q8H PRN nausea and 03/24/23 tablet vomiting #10 tabs oseltamivir 75 mg capsule (Tamiflu) 75 mg PO Q12H 5 days #10 caps 03/24/23 Allergies Allergy/AdvReac Type Severity Reaction Status Date / Time No Known Allergies Allergy Verified 03/06/23 13:16 Worker's Comp Is this a Worker's Comp case?: No PFSH [facility] Disclaimer: The information contained in this section may have been updated after the patient was seen, as this information can be updated by other users. Medical History Hyperthyroidism Palpitations Reactive airway disease with acute exacerbation SVT (supraventricular tachycardia) Surgical History History of esophagogastroduodenoscopy (EGD) Family History Other Cancer Heart disease Seizures Social History Smoking Status: Current every day smoker tobacco type: e-cigarettes second hand exposure: No alcohol intake: never substance use type: denies use current occupational status: unemployed Travel in the last 8 weeks: None household members: significant other housing: house caffeine: Yes ROS Obtained: Yes All systems reviewed & no additional complaints except as documented and Yes Systems reviewed as appropriate & no additional complaints except as documented Constitutional Constitutional: Reports system reviewed and no additional complaints, except as documented, Reports as per HPI, Reports body ache, Reports chills, Reports fever(s) and Reports headache(s) ENT Ears, Nose, Mouth, and Throat: Reports system reviewed and no additional complaints, except as documented, Reports as per HPI, Reports headache(s), Reports nasal congestion and Reports nasal discharge Cardiovascular Cardiovascular: Reports system reviewed and no additional complaints, except as documented and Reports as per HPI Respiratory Respiratory: Reports system reviewed and no additional complaints, except as documented and Reports as per HPI Gastrointestinal Gastrointestingal: Reports system reviewed and no additional complaints, except as documented, as per HPI and vomiting Neurologic Neurologic: Reports headache(s) Physical Exam General General appearance: alert and in no apparent distress ENT ENT exam: Present mucous membranes moist Expanded ENT Exam Nose exam: Absent sinus tenderness Throat exam: Present normal inspection Respiratory Respiratory exam: Present normal lung sounds bilaterally; Absent respiratory di stress or wheezes Cardiovascular Cardiovascular exam: Present regular rate, normal rhythm and tachycardia Abdominal Exam Abdominal exam: Present soft and normal bowel sounds; Absent distention or tenderness Neurological Exam Neurological exam: Present alert, oriented X3 and normal gait Medical Decision Making Colt Inquiry Pt receiving controlled substance: No Colt was queried for this patient: No Vital Signs: 03/24/23 10:40 Temperature 100.5 F H Temperature Source Oral Pulse Rate [Right Brachial] 150 H Respiratory Rate 21 Blood Pressure [Right Arm] 120/78 Blood Pressure Mean [Right Arm] 92 Blood Pressure Source [Right Arm] Automatic Cuff Blood Pressure Position [Right Arm] Sitting 02 Sat by Pulse Oximetry 98 Oxygen Delivery Method Room Air Lab Data Lab results reviewed: Yes I reviewed the patient's lab results.
[2023-03-24 11:04] LABS: UTC Influenza A Antigen Negative (Negative); UTC Influenza B Antigen Positive (Negative)
[2023-03-24] MEDS: ACETAMINOPHEN 325MG TAB 650 MG PO (11:07)
[2023-03-24 11:13] VITALS: BP 120/78; PULSE 124; RESP 21; TEMP 38.1; O2SAT 98
== END 2023-03-24 11:16 | disposition home or self-care (01) ==
PROVIDERS: Emergency Provider Nurse Practitioner; PCP Internal Medicine
DX: J10.1 Influenza due to other identified influenza virus with other respiratory manifestations (principal); R50.9 Fever, unspecified; R11.2 Nausea with vomiting, unspecified; R51.9 Headache, unspecified; R09.81 Nasal congestion; M79.18 Myalgia, other site; F17.290 Nicotine dependence, other tobacco product, uncomplicated
CPT/HCPCS: 87804; 99212; 99214; G0463

== ENCOUNTER → 2023-04-09 14:55 | Outpatient (POV) | payer MEDICARE, OTHER, SELFPAY ==
--- NOTE | 2023-04-09 15:05 | A.OFFVIS_ITS ---
[facility] Pain Management SOAP Note Subjective:: Patient is a pleasant 22-year-old female who presents today for 2-week follow- up. We are currently treating the patient for low back pain with lumbar facet arthropathy. Today she rates her pain an 8 out of 10. Patient denies any new trauma or injury. She does state that the increased muscle relaxer baclofen 10 mg 3 times a day has provided better improvement overall. She also states that she continues to use her compounded cream and it helps as well. Patient did have a lumbar medial branch block right-sided back in January that did provide 50% improvement however due to not having 80% relief her second block was denied by insurance. Patient is prescribed clonazepam 0.5 mg twice a day from her primary care provider. She denies any side effects from these medications. Her Colt has been reviewed and is appropriate. Review of Systems: General: No recent weight changes, no fever, no sleep disturbances Respiratory: No cough, no shortness of air, no recurring pulmonary infections Cardiovascular/peripheral vascular: No chest pain, no palpitations, no edema, no shortness of breath Gastrointestinal: No new onset incontinence, normal bowel movements reported Genitourinary: No new onset incontinence Musculoskeletal: Low back pain Psychiatric: [Normal mood/affect] Neurological: [Denies weakness in extremities], [denies balance issues] Objective:: Physical Exam: General: Alert and oriented x3, no acute distress, pleasant and cooperative Lungs: Respirations even and unlabored, symmetrical chest expansion Eyes: PERRL Musculoskeletal: Flexion and extension of lumbar [spine] somewhat guarded secondary to pain Neurological: Speech clear, no gross sensory deficit Assessment:: Low back pain with lumbar facet arthropathy Plan:: Patient is doing well with her current medication regimen. I will refill her baclofen 10 mg 3 times a day and provide a 3-month supply of this medication. Patient will return to clinic in 3 months for reevaluation of symptoms and plan of care. Patient has been instructed to contact the clinic with any concerns before the next appointment. Dr. Quach has reviewed this note and agrees with this plan of care. This note was dictated using voice recognition software and make contain errors or omissions. [facility] Disclaimer: The information contained in this section may have been updated after the patient was seen, as this information can be updated by other users. Medical History (Updated 04/09/23 @ 11:20 by Gloria Benoit RN) Allergies Anxiety and depression History of gastroesophageal reflux (GERD) Hyperthyroidism Palpitations Reactive airway disease with acute exacerbation SVT (supraventricular tachycardia) Surgical History (Updated 04/09/23 @ 11:20 by Gloria Benoit, RN) History of esophagogastroduodenoscopy (EGD) History of loop recorder Family History Other Cancer Heart disease Seizures Social History (Updated 04/09/23 @ 11:15 by Gloria Benoit, JOSUE) Smoking Status: Current every day smoker tobacco type: e-cigarettes second hand exposure: No alcohol intake: never substance use type: denies use current occupational status: unemployed Travel in the last 8 weeks: None household members: significant other housing: house caffeine: Yes
[2023-04-09 15:36] VITALS: BP 112/69; PULSE 71; RESP 18; O2SAT 97; BMI 16.0
== END | disposition home or self-care (01) ==
PROVIDERS: PCP Internal Medicine; Visit Provider Nurse Practitioner Family
DX: M47.816 Spondylosis without myelopathy or radiculopathy, lumbar region (principal)
CPT/HCPCS: 99212; G0463

== ENCOUNTER 2023-04-10 09:23 | Day surgery (SDC) | payer MEDICARE, OTHER, SELFPAY ==
[2023-04-09 11:20] VITALS: BMI 16.0
[2023-04-10] MEDS: LACTATED RINGERS 1000ML 1,000 ML 100 ML IV (10:20)
[2023-04-10 10:28] VITALS: BP 100/78; PULSE 66; RESP 18; TEMP 36.6; O2SAT 98
[2023-04-10 10:42] LABS: Urine Pregnancy, HCG Qual. Negative (Negative)
--- NOTE | 2023-04-10 10:49 | EXP.ANES.CKL ---
[facility] Disclaimer: The information contained in this section may have been updated after the patient was seen, as this information can be updated by other users. Medical History Allergies Anxiety and depression History of gastroesophageal reflux (GERD) Hyperthyroidism Palpitations Reactive airway disease with acute exacerbation SVT (supraventricular tachycardia) Surgical History History of esophagogastroduodenoscopy (EGD) History of loop recorder Family History Other Cancer Heart disease Seizures Social History Smoking Status: Current every day smoker tobacco type: e-cigarettes second hand exposure: No alcohol intake: never substance use type: denies use current occupational status: unemployed Travel in the last 8 weeks: None household members: significant other housing: house caffeine: Yes [facility] Anesthesia Checklist Patient Identification Patient Identification: Arm Band and Verbal (Name & ) Structural Data Admitted From: Home Planned Operative Procedure/s: EGD Consent for Planned Operative Procedure(s) Verified: Yes NPO Status Verified Time NPO: 00:00 Chart Verification Results Verified: HCG Additional verifications Anesthesia Reactions: No Hx Blood Transfusions: No Blood Transfusion Reaction: No Airway Assessment Mallampati Score:: Class I C-Spine Mobility Assessed: Yes TMJ Mobility Assessed: Yes Dentition: Good Dentition Neurological Assessment Level of Consciousness: Awake Hx Seizures: No Numbness or tingling in extremities: No Anesthesia Plan Anesthesia Risk discussed: Yes Anesthesia Plan: Verified ASA Class: II Anesthesia Type: MAC
[2023-04-10 10:56] VITALS: O2SAT 100
[2023-04-10 11:08] VITALS: BP 92/51; PULSE 64; RESP 16; TEMP 36.8; O2SAT 99
--- NOTE | 2023-04-10 11:10 | HMH.SCOPE ---
Procedure: Date: 04/10/23 Patient Date of :: 2000 Procedure Performed:: EGD & biopsies & bougie dilation Indications:: Nausea/vomiting, abdominal pain, weight loss Performing Provider:: Kaycee Metz MD Referring Provider:: Jojo Metz APRN Sedation:: Propofol Procedure:: The gastroscope was gently passed through the incisoral orifice into the oral cavity and under direct visualization the esophagus was intubated. The endoscope was passed down the esophagus, through the stomach, and into the duodenum. Color, texture, mucosa, and anatomy of the esophagus, stomach, and duodenum were carefully examined with the scope. Findings:: Oropharynx: normal Esophagus: normal. empiric bougie dilation performed for complaints of dysphagia EG Junction: intact at 40 cm Cardia: normal Fundus: normal Body: normal, random biopsies obtained for evaluation of h.pylori infection Antrum: normal Duodenal bulb: normal Duodenum (second and third portion): normal Impression: Normal EGD, no evidence of outlet obstruction Signs and symptoms consistente with nicotine overdose/poisoning Specimens:: Gastric Recommendations:: Marked decrease in vaping amount or cessation is recommended Complications:: None Estimated blood obtained (mL): 0 Colonoscopy Component Colonoscopy Component Was a colonoscopy performed during today's procedure?: No
[2023-04-10 11:18] VITALS: BP 105/61; PULSE 70; RESP 17; O2SAT 99
[2023-04-10 11:28] VITALS: BP 106/62; PULSE 66; RESP 17; O2SAT 100
[2023-04-10 11:38] VITALS: BP 121/68; PULSE 68; RESP 17; O2SAT 99
== END 2023-04-10 12:00 | disposition home or self-care (01) ==
PROVIDERS: PCP Family Medicine; Visit Provider Internal Medicine Gastroenterology
PROC: 0DJ08ZZ Inspection of Upper Intestinal Tract, Via Natural or Artificial Opening Endoscopic (ICD-10-PCS; CPT 43235; principal; 2023-04-10 10:30)
DX: R11.2 Nausea with vomiting, unspecified (principal); R10.9 Unspecified abdominal pain; R63.4 Abnormal weight loss; R13.10 Dysphagia, unspecified; T65.294A Toxic effect of other tobacco and nicotine, undetermined, initial encounter
CPT/HCPCS: 43239; 43248; 81025; 88305

== ENCOUNTER 2023-05-24 19:12 | Emergency (ER) | payer MEDICARE, OTHER, SELFPAY ==
[2023-05-24] VITALS (7 sets, daily range): BP systolic 105–129; BP diastolic 49–80; PULSE 60–68; RESP 16–19; TEMP 36.6–36.9; O2SAT 97–100; BMI 17.3; BMI 16.2
--- NOTE | 2023-05-24 19:37 | EXP.UTC ---
Discharge Plan Disposition Patient Disposition: Still a Patient Condition: Fair Prescriptions Prescriptions: No Action bupropion HCl 300 mg tablet extended release 24 hr 300 mg PO DAILY Qty: 30 2RF Vraylar 1.5 mg capsule 1.5 mg PO DAILY Qty: 30 2RF Rx Instructions: TAKE ONE CAPSULE BY MOUTH EVERY DAY FOR mood Nexplanon 68 mg implant 68 mg subdermal DIRECTED omeprazole 20 mg capsule,delayed release(DR/EC) 20 mg PO DAILY Qty: 30 2RF diltiazem HCl 240 mg capsule,extended release 24hr See Rx Instructions .ROUTE .COMPLEX Qty: 90 3RF Dose Instruction: TAKE ONE CAPSULE BY MOUTH EVERY DAY Rx Instructions: TAKE ONE CAPSULE BY MOUTH EVERY DAY nadolol 80 mg tablet See Rx Instructions .ROUTE .COMPLEX Qty: 30 5RF Dose Instruction: TAKE ONE TABLET BY MOUTH EVERY DAY Rx Instructions: TAKE ONE TABLET BY MOUTH EVERY DAY baclofen 10 mg tablet 10 mg PO TID PRN (Reason: muscle spasm) Qty: 90 2RF methimazole 5 mg tablet 5 mg PO DAILY Referrals Follow up/Referrals: Blade Tang DO [Primary Care Provider] - See instructions Clinical Impressions Clinical Impression: Episode of syncope Discharge ED Provider: Galdino Pettit [facility] [place] General Stated complaint: AO 05/24/23 1900 Laceration Right eye brow Mode of Arrival: Ambulatory Source of Information: Patient Limitations: No Limitations Time Seen by Provider: 05/24/23 19:37 Description of Symptoms (Recalled from Triage Doc. 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 SHE PASSED OUT AND FELL AND HIT HER HEAD ON SOMETHING. PATIENT C/O LACERATION TO RIGHT EYE BROWN FROM FALL. 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 This caused her to fall and hit her head on something. This was witnessed by her . He states that she was out for approximately 5 minutes. When she woke up she had a laceration above her right eye. She states that she is currently having headache, nausea, and dizziness at this time. She has a history of having episodes of SVT. She has a loop monitor in place that she has had for the past approx 3 years. She denies any recent known episodes of SVT. Related Data Home Medications Medication Instructions Recorded Confirmed etonogestrel 68 mg subdermal 68 mg subdermal DIRECTED 05/01/22 05/23/23 implant (Nexplanon) Control methimazole 5 mg tablet 5 mg PO DAILY 04/09/23 05/23/23 Previous Rx's Medication Instructions Recorded bupropion HCl 300 mg 24 hr tablet, 300 mg PO DAILY #30 tabs 04/02/23 extended release baclofen 10 mg tablet 10 mg PO TID PRN muscle spasm #90 04/09/23 tabs diltiazem HCl 240 mg See Rx Instructions .Route 04/17/23 capsule,extended release 24 hr .COMPLEX #90 caps nadolol 80 mg tablet See Rx Instructions .Route 04/29/23 .COMPLEX #30 tabs cariprazine 1.5 mg capsule 1.5 mg PO DAILY #30 caps 05/07/23 (Vraylar) omeprazole 20 mg capsule,delayed 20 mg PO DAILY #30 caps 05/23/23 release Allergies Allergy/AdvReac Type Severity Reaction Status Date / Time No Known Allergies Allergy Verified 05/23/23 10:50 Worker's Comp Is this a Worker's Comp case?: No [facility] Disclaimer: The information contained in this section may have been updated after the patient was seen, as this information can be updated by other users. Medical History (Updated 05/24/23 @ 19:55 by Santy Rosales APRN) Dehydration Influenza Anxiety and depression History of gastroesophageal reflux (GERD) Allergies Hyperthyroidism Reactive airway disease with acute exacerbation SVT (supraventricular tachycardia) Palpitations Surgical History History of loop recorder History of esophagogastroduodenoscopy (EGD) Family History Other Cancer Heart disease Seizures Social History Smoking Status: Current every day smoker tobacco type: e-cigarettes second hand exposure: No alcohol intake: never substance use type: denies use current occupational status: unemployed Travel in the last 8 weeks: None household members: significant other housing: house caffeine: Yes ROS Obtained: Yes All systems reviewed & no additional complaints except as documented Constitutional Constitutional: Denies chills, Denies fever(s) and Reports headache(s) Eyes Eyes: Denies eye discharge ENT Ears, Nose, Mouth, and Throat: Reports disequilibrium, Denies dizziness, Denies otalgia, Reports headache(s), Denies neck pain, Denies sore throat and Reports vertigo Cardiovascular Cardiovascular: Denies chest pain and Reports syncope Respiratory Respiratory: Denies shortness of breath, Denies chest congestion, Denies cough, Denies stridor and Denies wheezing Gastrointestinal Gastrointestingal: Reports nausea; Denies vomiting Musculoskeletal Musculoskeletal: Reports system reviewed and no additional complaints, except as documented, Denies abnormal gait, Denies arthralgias, Denies back pain and Denies neck pain Integumentary/Breasts Skin/Breast: Reports as per HPI and Reports wounds Neurologic Neurologic: Reports as per HPI, Denies abnormal gait, Denies abnormal speech, Denies confusion, Reports disequilibrium, Denies dizziness, Reports headache(s), Denies paresthesias, Reports syncope and Reports vertigo Allergic/Immunologic Allergic/Immunologic: Denies wheezing Physical Exam General General appearance: alert and in no apparent distress Head Head exam: atraumatic, normocephalic and normal inspection Eye Eye exam: Present normal appearance, PERRL and EOMI ENT ENT exam: Present normal exam, normal oropharynx, mucous membranes moist, TM's normal bilaterally and normal external ear exam Neck Neck exam: Present normal inspection, full ROM and trachea midline; Absent meningismus or lymphadenopathy Chest Chest inspection: Present normal inspection and symmetric chest wall rise; Absent tenderness Respiratory Respiratory exam: Present normal lung sounds bilaterally; Absent respiratory distress Cardiovascular Cardiovascular exam: Present regular rate and normal rhythm; Absent JVD Abdominal Exam Abdominal exam: Present soft and normal bowel sounds; Absent distention, tenderness or guarding Extremities Exam Extremities exam: Present normal inspection, full ROM and normal capillary refill; Absent calf tenderness Back Exam Back exam: Present normal inspection; Absent tenderness Neurological Exam Neurological exam: Present alert, oriented X3, CN II-XII intact, normal gait and reflexes normal; Absent motor sensory deficit Psychiatric Psychiatric exam: Present normal affect and normal mood Skin Skin exam: Present warm, dry, intact and normal color Lymphatic Lymphatic Findings: no adenopathy Medical Decision Making Medical Records Medical records reviewed: No I reviewed the patient's medical records. Colt Inquiry Pt receiving controlled substance: No Vital Signs: 05/24/23 19:20 Temperature 97.8 F Temperature Source Oral Pulse Rate [Left Brachial] 65 Respiratory Rate 19 Blood Pressure [Left Arm] 129/49 L Blood Pressure Mean [Left Arm] 75 Blood Pressure Source [Left Arm] Automatic Cuff Blood Pressure Position [Left Arm] Sitting 02 Sat by Pulse Oximetry 98 Oxygen Delivery Method Room Air ECG Data Tracing #1: I reviewed this ECG and interpreted as documented below: sinus bradycardia at 53 ECG initial impression date: 05/24/23 ECG initial impression time: 19:52 Normal Sinus Rhythm: No Arrhythmias present: sinus harry Medical Decision Narrative: She was transferred to the ER for further evaluation due to her syncopal episode, history of svt, sinus bradycardia on ekg .
--- NOTE | 2023-05-24 19:40 | ECG_ITS ---
APPROVED REPORT Exam: Resting ECG HR:53 bpm ECG Measurements Heart Rate 53 AXES LA 125 P 53 QRSd 85 QRS 73 QT 432 T 63 QTc 414 Conclusion SINUS BRADYCARDIA POSSIBLE LEFT ATRIAL ENLARGEMENT [-0.1mV P-WAVE IN V1/V2] POSSIBLE RIGHT VENTRICULAR CONDUCTION DELAY [RSR (QR) IN V1/V2] BORDERLINE ECG UNCONFIRMED REPORT Electronically signed by : SEAN HOLGUIN, 05/25/2023 05:54:55
--- NOTE | 2023-05-24 19:52 | PC.NURSE ---
PATIENT SENT TO ER PER Sahil COPPOLA APRN FOR FURTHER EVALUATION. REPORT GIVEN TO DR. RIGGINS BY Sahil COPPOLA APRN. PATIENT TRANSPORTED TO ER VIA WHEELCHAIR WITH [facility] STAFF ASSIST. SIGNIFICANT OTHER AT BEDSIDE
--- NOTE | 2023-05-24 20:11 | HMH.EDGENADL ---
Discharge Plan Disposition Patient Disposition: Home, Self-Care Condition: Fair Prescriptions Prescriptions: No Action bupropion HCl 300 mg tablet extended release 24 hr 300 mg PO DAILY Qty: 30 2RF Vraylar 1.5 mg capsule 1.5 mg PO DAILY Qty: 30 2RF Rx Instructions: TAKE ONE CAPSULE BY MOUTH EVERY DAY FOR mood Nexplanon 68 mg implant 68 mg subdermal DIRECTED omeprazole 20 mg capsule,delayed release(DR/EC) 20 mg PO DAILY Qty: 30 2RF diltiazem HCl 240 mg capsule,extended release 24hr See Rx Instructions .ROUTE .COMPLEX Qty: 90 3RF Dose Instruction: TAKE ONE CAPSULE BY MOUTH EVERY DAY Rx Instructions: TAKE ONE CAPSULE BY MOUTH EVERY DAY nadolol 80 mg tablet See Rx Instructions .ROUTE .COMPLEX Qty: 30 5RF Dose Instruction: TAKE ONE TABLET BY MOUTH EVERY DAY Rx Instructions: TAKE ONE TABLET BY MOUTH EVERY DAY baclofen 10 mg tablet 10 mg PO TID PRN (Reason: muscle spasm) Qty: 90 2RF methimazole 5 mg tablet 5 mg PO DAILY Referrals Follow up/Referrals: Blade Tang DO [Primary Care Provider] - See instructions Activity Restrictions/Add. Instructions Additional Instructions/Restrictions: Follow-up with your automatic spinning lathe setter as discussed. Let them know you are in the emergency department for syncopal episode and have them interrogate your loop recorder. Call your family doctor to establish care for this visit to the emergency department and schedule follow-up within 48 hours to ensure improvement. If you have any worsening of your condition or any other concerning signs or symptoms, return to the emergency department or your primary care doctor for further evaluation. Clinical Impressions Clinical Impression: Episode of syncope, Facial laceration Instructions Patient Instructions: DI for Syncope in Adults (Fainting), DI for Syncope in Children (Fainting) Discharge ED Provider: Galdino Pettit General Adult HPI General Chief complaint: Syncope Stated complaint: AO 05/24/23 1900 Laceration Right eye brow Time Seen by Provider: 05/24/23 19:37 Mode of Arrival: Ambulatory Source of Information: Patient Limitations: No Limitations Description of Symptoms (Recalled from ER Triage Doc. 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 SHE PASSED OUT AND FELL AND HIT HER HEAD ON SOMETHING. PATIENT C/O LACERATION TO RIGHT EYE BROWN FROM FALL. History of Present Illness HPI narrative: Is a 22-year-old female history of SVT currently on diltiazem and nadolol, hyperthyroidism on methimazole presenting with syncopal episode. Patient states that she syncopized in her kitchen. Does not remember any preceding event or aura. No chest pain, shortness of breath, palpitations, vision changes, but she did feel lightheaded shortly beforehand. She has no idea how long she was unconscious, but woke up with blood on her face, ran out to get her and was brought to the emergency department immediately. On arrival, patient went to urgent care, patient was transferred to emergency department for further evaluation. Per and patient, patient appears very well and back to baseline other than laceration above her right eye. Patient denies headache, vision changes, neck pain, chest pain, shortness of breath or any symptoms at this time either. Has never syncopized before. Please note that above description of symptoms, in this electronic medical record under categorization of recalled from ER triage doctor by RN are reflective of an initial nursing assessment, however, is not reflective of my full history and physical exam that was personally taken and clarified. Consequentially, this preceding description of symptoms, which may include the patient's categorized chief complaint in the EMR, do not reflect my personal clinical impression, and the ultimate description of history of present illness and patient stated complaints should be deferred to this section of the note. Unless stated otherwise or congruent with this section of the note, additional signs, symptoms, or incongruence should be interpreted as inaccurate with my clinical impression. Related Data Home Medications Medication Instructions Recorded Confirmed etonogestrel 68 mg subdermal 68 mg subdermal DIRECTED 05/01/22 05/23/23 implant (Nexplanon) Control methimazole 5 mg tablet 5 mg PO DAILY 04/09/23 05/23/23 Previous Rx's Medication Instructions Recorded bupropion HCl 300 mg 24 hr tablet, 300 mg PO DAILY #30 tabs 04/02/23 extended release baclofen 10 mg tablet 10 mg PO TID PRN muscle spasm #90 04/09/23 tabs diltiazem HCl 240 mg See Rx Instructions .Route 04/17/23 capsule,extended release 24 hr .COMPLEX #90 caps nadolol 80 mg tablet See Rx Instructions .Route 04/29/23 .COMPLEX #30 tabs cariprazine 1.5 mg capsule 1.5 mg PO DAILY #30 caps 05/07/23 (Vraylar) omeprazole 20 mg capsule,delayed 20 mg PO DAILY #30 caps 05/23/23 release Allergies Allergy/AdvReac Type Severity Reaction Status Date / Time No Known Allergies Allergy Verified 05/23/23 10:50 [facility] Disclaimer: The information contained in this section may have been updated after the patient was seen, as this information can be updated by other users. Medical History (Updated 05/24/23 @ 21:21 by Galdino Pettit MD) Dehydration Influenza Anxiety and depression History of gastroesophageal reflux (GERD) Allergies Hyperthyroidism Reactive airway disease with acute exacerbation SVT (supraventricular tachycardia) Palpitations Surgical History History of loop recorder History of esophagogastroduodenoscopy (EGD) Family History Other Cancer Heart disease Seizures Social History Smoking Status: Current every day smoker tobacco type: e-cigarettes second hand exposure: No alcohol intake: never substance use type: denies use current occupational status: unemployed Travel in the last 8 weeks: None household members: significant other housing: house caffeine: Yes ROS Obtained: Yes All systems reviewed & no additional complaints except as documented Physical Exam General General appearance: alert and in no apparent distress Head Head exam: normocephalic and other (1.5 cm laceration orbital rim laterally on right side. Hemostatic) Eye Eye exam: Present normal appearance, PERRL and EOMI ENT ENT exam: Present mucous membranes moist Neck Neck exam: Present normal inspection, full ROM and trachea midline; Absent tenderness Respiratory Respiratory exam: Present normal lung sounds bilaterally; Absent respiratory distress, wheezes, stridor, accessory muscle use or prolonged expiratory phase Cardiovascular Cardiovascular exam: Present normal rhythm, bradycardia and other (Pulses equal and symmetric) Abdominal Exam Abdominal exam: Present soft; Absent distention, tenderness, guarding, rebound or rigidity Extremities Exam Extremities exam: Absent edema Neurological Exam Neurological exam: Present alert, oriented X3, CN II-XII intact and normal gait; Absent motor sensory deficit Skin Skin exam: Present warm and dry; Absent diaphoresis or erythema Medical Decision Making Medical Records Medical records reviewed: Yes I reviewed the patient's medical records. [place] Inquiry Pt receiving controlled substance: No [place] was queried for this patient: No Vital Signs: 05/24/23 19:20 05/24/23 19:44 05/24/23 19:54 Temperature 97.8 F 98.4 F Temperature Source Oral Oral Pulse Rate Pulse Rate [Left Brachial] 65 63 68 Respiratory Rate 19 16 16 Blood Pressure Blood Pressure [Left Arm] 129/49 L 112/66 115/80 Blood Pressure Mean Blood Pressure Mean [Left Arm] 75 81 91 Blood Pressure Source [Left Arm] Automatic Cuff Blood Pressure Position [Left Arm] Sitting 02 Sat by Pulse Oximetry 98 98 98 Oxygen Delivery Method Room Air Room Air Room Air 05/24/23 19:59 05/24/23 20:00 05/24/23 20:30 Temperature Temperature Source Pulse Rate 62 60 66 Pulse Rate [Left Brachial] Respiratory Rate 16 18 16 Blood Pressure 105/75 L 105/75 L 108/73 L Blood Pressure [Left Arm] Blood Pressure Mean 85 82 Blood Pressure Mean [Left Arm] Blood Pressure Source [Left Arm] Blood Pressure Position [Left Arm] 02 Sat by Pulse Oximetry 97 98 100 Oxygen Delivery Method Room Air Room Air Room Air Lab Data Lab Results 05/24/23 20:11: WBC 14.2 H, RBC 4.80, Hgb 15.1, Hct 46.4, MCV 96.6, MCH 31.5 H, MCHC 32.6, RDW 12.8, Plt Count 389, MPV 8.0, Neut % (Auto) 76.1, Lymph % (Auto) 15.2, [place] % (Auto) 6.4, Eos % (Auto) 1.1, Baso % (Auto) 1.2, Neut # (Auto) 10.8 H, Lymph # (Auto) 2.2, [place] # (Auto) 0.9, Eos # (Auto) 0.2, Baso # (Auto) 0.2, Sodium 139, Potassium 4.1, Chloride 109 H, Carbon Dioxide 24, Anion Gap 10.1, BUN 14, Creatinine 0.60, Estimated Creat Clear 104, Estimated GFR 126, Est GFR ( Amer) 153, Glucose 106 H, Calcium 9.7, Magnesium 2.1, Total Bilirubin 0.6, AST 76 H, ALT 105 H, Alkaline Phosphatase 86, Troponin I < 0.01, NT-Pro-B Natriuret Pep 55.8, Total Protein 6.9, Albumin 4.2, Globulin 2.7, Albumin/Globulin Ratio 1.6, TSH 1.76, Thyroxine (T4) 11.7 H, HCG, Quant < 2 05/24/23 20:11 05/24/23 20:11 Orders (Tests/Meds): ED MEDICATIONS Discontinued Medications Generic Name Dose Route Start Last Admin Trade Name Inge PRN Reason Stop Dose Admin Lactated Ringer's 1,000 mls @ 999 mls/hr 05/24/23 20:05 05/24/23 20:13 Lactated Ringer's 1000 Ml Bag IV 05/24/23 21:05 999 mls/hr .Q1H1M ONE Administration Lidocaine HCl 10 ml 05/24/23 20:05 05/24/23 20:48 Lidocaine 1% 10ml Mdv SQ 05/24/23 20:06 10 ml ONCE ONE Administration ORDERS Category Date Time Status POCUS Point of Care (ER Only) Stat Exams 05/24/23 20:23 Ordered CBC w/Auto Diff [Complete Blood Count Auto Diff] Stat Lab 05/24/23 20:11 Completed CMP [Comprehensive Metabolic Panel] Stat Lab 05/24/23 20:11 Completed HCG,Quantitative Stat Lab 05/24/23 20:11 Completed Magnesium Stat Lab 05/24/23 20:11 Completed NT Pro Brain Natriuretic Pep. Stat Lab 05/24/23 20:11 Completed T4 (Thyroxine) Stat Lab 05/24/23 20:11 Completed TSH [Thyroid Stimulating Hormone] Stat Lab 05/24/23 20:11 Completed Trop I [Troponin I] Stat Lab 05/24/23 20:11 Completed Troponin I Q3H Lab 05/24/23 23:00 Ordered Troponin I Q3H Lab 05/25/23 02:00 Ordered Medical Decision Narrative: Is a 22-year-old female history of SVT currently on diltiazem and nadolol, hyperthyroidism on methimazole presenting with syncopal episode. Patient states that she syncopized in her kitchen. Does not remember any preceding event or aura. No chest pain, shortness of breath, palpitations, vision changes, but she did feel lightheaded shortly beforehand. She has no idea how long she was unconscious, but woke up with blood on her face, ran out to get her and was brought to the emergency department immediately. On arrival, patient went to urgent care, patient was transferred to emergency department for further evaluation. Per and patient, patient appears very well and back to baseline other than laceration above her right eye. Patient denies headache, vision changes, neck pain, chest pain, shortness of breath or any symptoms at this time either. Has never syncopized before. It should be noted that patient has a loop recorder in place to evaluate for further arrhythmia. History was obtained via conversation with patient and . On arrival, patient hemodynamically stable, alert, oriented x4, appropriate, GCS 15, moving all extremities spontaneously, pupils equal and reactive to light. Full physical exam performed and significant for 1.5 cm laceration right upper outer eyelid. Hemostatic. Patient has no evidence of depressed or palpable or basilar skull fracture. No C-spine tenderness, neurologically intact. Pulses are equal and symmetric, no extracardiac sounds.. Differential includes arrhythmia, dehydration, seizure, metabolic abnormality, PE, structural cardiac abnormality, among others. Patient was given 1 L fluids for symptomatic management and correction of underlying abnormalities. Workup independently interpreted and significant for nonactionable CBC or chemistry. hCG negative. Troponin negative, BNP negative. Independent interpretation of EKG shows sinus bradycardia. TN, QRS, QT intervals within normal limits. No ST or T wave changes concerning for acute ischemia. [place] normal. Heart score 1. Bedside [id number] ultrasound with normal cardiac findings. [place] syncope negative. On reevaluation, patient resting comfortably in bed. Laceration was repaired. Given patient presentation, workup, history, this most likely represents medication side effect versus arrhythmia. Is recommended patient call her automatic spinning lathe setter and talk to them about this episode and approximate time what happens a loop recorder can be interrogated. She voiced understanding because patient at baseline without signs or symptoms of clinical decompensation, deemed appropriate for discharge. Results were relayed to patient who voiced understanding and were agreeable to outpatient management and follow up. I discussed my clinical impression with patient and answered all questions. At this time, the evidence for any other entities in the differential is insufficient to warrant any further testing or ED observation. This was explained as well. Advisory was given that persistent or worsening symptoms require further evaluation. I confirmed the understanding of this discussion. Procedures Laceration Laceration 1: Site: face Side (If applicable): right Size (cm): 1.5 Description: linear Depth: simple, single layer Local Anesthetic: lidocaine 1% Amount of anesthesia used (mL): 5 Pre-repair: wound explored Skin layer closed with: other (Plan get) Size (cm): 5-0 Number of sutures: 3 Limited Ultrasound Indication:: Limited cardiac ultrasound Indication: Syncope Identified cardiac views: -Cardiac parasternal long axis -Cardiac parasternal short axis Findings: -Cardiac activity present -Gross wall motion normal -Pericardial effusion absent -Right heart strain absent Impression: -Normal cardiac ultrasound with normal EPSS Images were saved to permanent archive The study was technically adequate CPT: 77050 This study was performed by me, and I personally interpreted all images/videos. Based on my clinical judgement, these images were adequate and did not necessitate further imaging. Critical Care Critical Care Time Critical Care Time: No
[2023-05-24] MEDS: LACTATED RINGERS 1000ML 1,000 ML 999 ML IV (20:13)
[2023-05-24 20:23] LABS: Chloride 109 mmol/L (98-107)
[2023-05-24 20:24] LABS: Potassium 4.1 mmoL/L (3.5-5.1); Sodium 139 mmol/L (136-145)
[2023-05-24 20:26] LABS: Alanine Aminotransferase 105 U/L (12-78); Alkaline Phosphatase 86 U/L (38-126); Anion Gap 10.1 mEq/L (5-15); Aspartate Amino Transferase 76 U/L (14-36); Bilirubin,Total 0.6 mg/dl (0.2-1.3); Blood Urea Nitrogen 14 mg/dl (7-17); Carbon Dioxide 24 mmol/L (22.0-30.0); Creatinine Clearance Estimated 104 mL/min (50-200); Estimated Glomerular Filt Rate 126 ml/min (>60); GFR (African American) 153 ML/MIN (>60)
[2023-05-24 20:27] LABS: Albumin Level 4.2 g/dl (3.5-5.0); Albumin/Globulin Ratio 1.6 (1.1-1.8); Calcium 9.7 mg/dl (8.4-10.2); Globulin 2.7 g/dL (1.3-3.2); Glucose 106 mg/dl (74-100); Total Protein,Serum 6.9 g/dl (6.3-8.2)
[2023-05-24 20:28] LABS: Basophils # 0.2 K/mm3 (0-0.2); Basophils % 1.2 % (0.1-2.0); Eosinophils # 0.2 K/mm3 (0.0-0.4); Eosinophils % 1.1 % (0.1-12.0); Hematocrit 46.4 % (37.0-47.0); Hemoglobin 15.1 g/dL (12.2-16.2); Lymphocytes # 2.2 K/mm3 (0.7-4.5); Lymphocytes % 15.2 % (10-50); Mean Corpuscular HGB Conc 32.6 g/dL (31.8-35.4); Mean Corpuscular Hemoglobin 31.5 pg (27.0-31.2); Mean Corpuscular Volume 96.6 fl (81-99); Monocytes # 0.9 K/mm3 (0.1-1.0); Monocytes % 6.4 % (1.7-9.3); Neutrophils # 10.8 K/mm3 (1.8-7.8); Neutrophils % 76.1 % (37.0-80.0); Platelet Count 389 K/mm3 (142-424); Red Cell Distribution Width 12.8 % (11.5-17.5); White Blood Count 14.2 K/mm3 (4.8-10.8)
[2023-05-24 20:30] LABS: Magnesium 2.1 mg/dl (1.6-2.3)
[2023-05-24 20:38] LABS: NT Pro Brain Natriuretic Pep. 55.8 pg/mL (0-125)
[2023-05-24 20:48] LABS: HCG,Quantitative < 2 mIU/ml (0-5.42); T4 (Thyroxine) 11.7 ug/dl (5.53-11.0); Troponin I < 0.01 ng/ml (0.00-0.034)
[2023-05-24] MEDS: LIDOCAINE 1% 10ML MDV 10 ML SQ (20:48)
[2023-05-24 21:01] LABS: Thyroid Stimulating Hormone 1.76 uIU/mL (0.465-4.68)
== END 2023-05-24 21:27 | disposition home or self-care (01) ==
LOC: UTC 19:23 → ER 19:50
PROVIDERS: Emergency Provider Emergency Medicine; PCP Internal Medicine
DX: R55 Syncope and collapse; R00.1 Bradycardia, unspecified; S01.81XA Laceration without foreign body of other part of head, initial encounter; E03.9 Hypothyroidism, unspecified; K21.9 Gastro-esophageal reflux disease without esophagitis; F17.290 Nicotine dependence, other tobacco product, uncomplicated; W18.30XA Fall on same level, unspecified, initial encounter
CPT/HCPCS: 12011; 80053; 83735; 83880; 84436; 84443; 84484; 84702; 85025; 93005; 96360; 99284

== ENCOUNTER 2023-06-03 11:49 | Outpatient (CLI) | payer MEDICARE, OTHER, SELFPAY ==
[2023-06-03 13:02] VITALS: BMI 16.5
== END 2023-06-03 23:59 ==
LOC: DIETICIAN 11:50
PROVIDERS: PCP Internal Medicine; Visit Provider Nurse Practitioner
DX: Z71.3 Dietary counseling and surveillance (principal); R63.4 Abnormal weight loss
CPT/HCPCS: 97802

== ENCOUNTER 2023-06-10 20:31 | Emergency (ER) | payer MEDICARE, OTHER, SELFPAY ==
[2023-06-10 20:31] VITALS: BP 110/61; PULSE 85; RESP 13; TEMP 36.7; O2SAT 100; BMI 17.3
--- NOTE | 2023-06-10 20:38 | ECG_ITS ---
APPROVED REPORT Exam: Resting ECG HR:93 bpm ECG Measurements Heart Rate 93 AXES [place] 133 P 76 QRSd 88 QRS 87 QT 357 T 71 QTc 408 Conclusion SINUS RHYTHM POSSIBLE RIGHT ATRIAL ENLARGEMENT [0.25mV P-WAVE] POSSIBLE LEFT ATRIAL ENLARGEMENT [-0.1mV P-WAVE IN V1/V2] POSSIBLE RIGHT VENTRICULAR CONDUCTION DELAY [RSR (QR) IN V1/V2] BORDERLINE ECG UNCONFIRMED REPORT Electronically signed by : SEAN HOLGUIN, 06/11/2023 06:50:41
--- NOTE | 2023-06-10 20:40 | HMH.EDGENADL ---
Discharge Plan Disposition Patient Disposition: Home, Self-Care Prescriptions Prescriptions: No Action bupropion HCl 300 mg tablet extended release 24 hr 300 mg PO DAILY Qty: 30 2RF Vraylar 1.5 mg capsule 1.5 mg PO DAILY Qty: 30 2RF Rx Instructions: TAKE ONE CAPSULE BY MOUTH EVERY DAY FOR mood Nexplanon 68 mg implant 68 mg subdermal DIRECTED omeprazole 20 mg capsule,delayed release(DR/EC) 20 mg PO DAILY Qty: 30 2RF amitriptyline 10 mg tablet 10 mg PO HS Qty: 30 2RF diltiazem HCl 240 mg capsule,extended release 24hr See Rx Instructions .ROUTE .COMPLEX Qty: 90 3RF Dose Instruction: TAKE ONE CAPSULE BY MOUTH EVERY DAY Rx Instructions: TAKE ONE CAPSULE BY MOUTH EVERY DAY nadolol 80 mg tablet See Rx Instructions .ROUTE .COMPLEX Qty: 30 5RF Dose Instruction: TAKE ONE TABLET BY MOUTH EVERY DAY Rx Instructions: TAKE ONE TABLET BY MOUTH EVERY DAY baclofen 10 mg tablet 10 mg PO TID PRN (Reason: muscle spasm) Qty: 90 2RF methimazole 5 mg tablet 5 mg PO DAILY Referrals Follow up/Referrals: Adriana Deras PA [Primary Care Provider] - See instructions Lindsay Nuñez MD [Referring] - See instructions Activity Restrictions/Add. Instructions Additional Instructions/Restrictions: As discussed, your symptoms today were concerning for a seizure. You will need to follow-up with a neurologist. In the meantime please adhere to the seizure precautions in the attached handout. Please return with any new or worsening symptoms. Clinical Impressions Clinical Impression: Seizure Instructions Patient Instructions: DI for Seizure Disorder -- Adult, DI for Seizure (Not Epilepsy/Seizure Disorder), DI for Seizure Disorder -- Child, Seizure Safety Precautions-Adult Discharge ED Provider: Nehemiah Seay Adult HPI General Chief complaint: Seizure Stated complaint: Seizures Time Seen by Provider: 06/10/23 20:39 History of Present Illness HPI narrative: Patient presents for evaluation of seizure-like activity which occurred shortly prior to arrival. The episode lasted approximately 1 minute with 1 minute of confusion afterwards. Patient had preceding argument with and walked out into the street. She denies any pain at this time. No history of seizure disorder, recreational drug use, medication changes or new medications. Denies any pain at this time. She has no recollection of the event. It was witnessed by family member. Patient's eyes were open during the episode. Symptoms included generalized tonic-clonic activity. She was in her normal state of health prior to onset of symptoms. Denies any fevers or chills nausea vomiting chest pain neck pain or confusion. Please note that above description of symptoms, in this electronic medical record under categorization of recalled from ER triage doctor by RN are reflective of an initial nursing assessment, however, is not reflective of my full history and physical exam that was personally taken and clarified. Consequentially, this preceding description of symptoms, which may include the patient's categorized chief complaint in the EMR, do not reflect my personal clinical impression, and the ultimate description of history of present illness and patient stated complaints should be deferred to this section of the note. Unless stated otherwise or congruent with this section of the note, additional signs, symptoms, or incongruence should be interpreted as inaccurate with my clinical impression. Related Data Home Medications Medication Instructions Recorded Confirmed etonogestrel 68 mg subdermal 68 mg subdermal DIRECTED 05/01/22 05/29/23 implant (Nexplanon) Control methimazole 5 mg tablet 5 mg PO DAILY 04/09/23 05/29/23 Previous Rx's Medication Instructions Recorded bupropion HCl 300 mg 24 hr tablet, 300 mg PO DAILY #30 tabs 04/02/23 extended release baclofen 10 mg tablet 10 mg PO TID PRN muscle spasm #90 04/09/23 tabs diltiazem HCl 240 mg See Rx Instructions .Route 04/17/23 capsule,extended release 24 hr .COMPLEX #90 caps nadolol 80 mg tablet See Rx Instructions .Route 04/29/23 .COMPLEX #30 tabs cariprazine 1.5 mg capsule 1.5 mg PO DAILY #30 caps 05/07/23 (Vraylar) omeprazole 20 mg capsule,delayed 20 mg PO DAILY #30 caps 05/23/23 release amitriptyline 10 mg tablet 10 mg PO HS cramping/ibs #30 tabs 05/29/23 Allergies Allergy/AdvReac Type Severity Reaction Status Date / Time No Known Allergies Allergy Verified 05/29/23 13:21 [facility] Disclaimer: The information contained in this section may have been updated after the patient was seen, as this information can be updated by other users. Medical History Dehydration Influenza Anxiety and depression History of gastroesophageal reflux (GERD) Allergies Hyperthyroidism Reactive airway disease with acute exacerbation SVT (supraventricular tachycardia) Palpitations Surgical History History of loop recorder History of esophagogastroduodenoscopy (EGD) Family History Other Cancer Heart disease Seizures Social History Smoking Status: Former smoker tobacco type: e-cigarettes second hand exposure: No alcohol intake: never substance use type: denies use current occupational status: unemployed Travel in the last 8 weeks: None household members: significant other housing: house caffeine: Yes ROS Obtained: Yes Systems reviewed as appropriate & no additional complaints except as documented As per HPI Physical Exam General General appearance: alert and in no apparent distress Head Head exam: atraumatic and normocephalic Eye Eye exam: Present normal appearance Neck Neck exam: Present normal inspection Chest Chest inspection: Present normal inspection and symmetric chest wall rise Respiratory Respiratory exam: Present normal lung sounds bilaterally; Absent respiratory distress Cardiovascular Cardiovascular exam: Present regular rate and normal rhythm Abdominal Exam Abdominal exam: Present soft Neurological Exam Neurological exam: Present alert and oriented X3 Psychiatric Psychiatric exam: Present normal affect and normal mood Skin Skin exam: Present warm and dry Medical Decision Making Medical Records Medical records reviewed: Yes I reviewed the patient's medical records. Colt Inquiry Pt receiving controlled substance: No Vital Signs: 06/10/23 20:31 06/10/23 22:15 Temperature 98.0 F 97.9 F Temperature Source Oral Pulse Rate 55 L Pulse Rate [Left] 85 Respiratory Rate 13 21 Blood Pressure 111/63 Blood Pressure [Right Arm] 110/61 Blood Pressure Mean [Right Arm] 77 02 Sat by Pulse Oximetry 100 Oxygen Delivery Method Room Air Lab Data Lab Results 06/10/23 20:30: WBC 9.3, RBC 4.76, Hgb 15.1, Hct 46.6, MCV 98.0, MCH 31.7 H, MCHC 32.3, RDW 13.0, Plt Count 426 H, MPV 7.9, Neut % (Auto) 63.1, Lymph % (Auto) 25.4, [place] % (Auto) 8.9, Eos % (Auto) 1.7, Baso % (Auto) 0.8, Neut # (Auto) 5.9, Lymph # (Auto) 2.4, [place] # (Auto) 0.8, Eos # (Auto) 0.2, Baso # (Auto) 0.1, Sodium 139, Potassium 3.9, Chloride 108 H, Carbon Dioxide 19 L, Anion Gap 15.9 H, BUN 11, Creatinine 0.70, Estimated Creat Clear 95, Estimated GFR 106, Est GFR ( Amer) 128, Glucose 130 H, Calcium 9.5, Total Bilirubin 0.6, AST 66 H, ALT 93 H, Alkaline Phosphatase 79, Total Protein 7.2, Albumin 4.4, Globulin 2.8, Albumin/Globulin Ratio 1.6, TSH 3.77, Free T4 1.39, Serum HCG, Qual Negative 06/10/23 21:25: Urine Opiates Screen Negative, Urine Methadone Screen Negative, Ur Barbituates Screen Negative, Ur Phencyclidine Scrn Negative, Ur Amphetamines Screen Negative, U Benzodiazepines Scrn Negative, Urine Cocaine Screen Negative, U Marijuana (THC) Screen Negative 06/10/23 20:30 06/10/23 20:30 Orders (Tests/Meds): ORDERS Category Date Time Status CT head/brain wo con Stat Cat Scan 06/10/23 20:57 Completed CBC w/Auto Diff [Complete Blood Count Auto Diff] Stat Lab 06/10/23 20:30 Completed CMP [Comprehensive Metabolic Panel] Stat Lab 06/10/23 20:30 Completed Drug Screen,Urine Stat Lab 06/10/23 21:25 Completed Free T4 (Free Thyroxine) Stat Lab 06/10/23 20:30 Completed Serum Beta HCG [HCG Qualitative, Serum] Stat Lab 06/10/23 20:30 Completed TSH [Thyroid Stimulating Hormone] Stat Lab 06/10/23 20:30 Completed Medical Decision Narrative: Patient with history and exam per above presenting for evaluation of seizure-like activity Diagnoses considered include Hypoglycemia, hyperglycemia, hyponatremia, hypocalcemia, uremia, thyrotoxicosis, hepatic encephalopathy, medication induced including antispasmodics, anticholinergics, antipsychotics, antibiotics, such as isoniazid, fluoroquinolones, imipenem, metronidazole psychiatric medications including antipsychotics, TCAs, bupropion, lithium, clozapine, alcohol withdrawal, stimulant, organophosphate, infectious etiologies such as encephalitis, meningitis, brain abscess, ICH, subarachnoid hemorrhage, neoplasm, PRES, epilepsy, hypoxia, dysrhythmia, vagal or orthostatic syncope, psychogenic etiology Clinically, there is no evidence to suggest infectious precipitant, no focal neurologic deficits to suggest stroke, PRES, neoplasm, patient does have risk factors with TCA use and positive family history of epilepsy, no recent antibiotic use, no clinical evidence of trauma ED workup and treatment included: ORDERS Category Date Time Status CT head/brain wo con Stat Cat Scan 06/10/23 20:57 Completed CBC w/Auto Diff [Complete Blood Count Auto Diff] Stat Lab 06/10/23 20:30 Completed CMP [Comprehensive Metabolic Panel] Stat Lab 06/10/23 20:30 Completed Drug Screen,Urine Stat Lab 06/10/23 21:25 Completed Free T4 (Free Thyroxine) Stat Lab 06/10/23 20:30 Completed Serum Beta HCG [HCG Qualitative, Serum] Stat Lab 06/10/23 20:30 Completed TSH [Thyroid Stimulating Hormone] Stat Lab 06/10/23 20:30 Completed Labs were independently interpreted by me, significant for no acute findings Imaging was independently visualized and interpreted by me, significant for no acute findings. Please refer to radiology report for full details. My clinical impression at this time is most consistent with first-time seizure for which patient was given seizure precautions and instructed to follow-up with neurology I discussed my clinical impression with patient and answered all questions. At this time, the evidence for any other entities in the differential is insufficient to warrant any further testing or ED observation. This was explained to the patient. The patient was advised that persistent or worsening symptoms require further evaluation. I confirmed the patient's understanding of this discussion. Critical Care Critical Care Time Critical Care Time: No
--- NOTE | 2023-06-10 20:57 | CT_ITS ---
PROCEDURE INFORMATION: Exam: CT Head Without Contrast Exam date and time: 06/10/2023 9:19 PM Age: 22 years old Clinical indication: Other: New onset of seizure; Patient HX: Family HX of seizure; Additional info: New onset seizure TECHNIQUE: Imaging protocol: Computed tomography of the head without contrast. Radiation optimization: All CT scans at this facility use at least one of these dose optimization techniques: automated exposure control; mA and/or kV adjustment per patient size (includes targeted exams where dose is matched to clinical indication); or iterative reconstruction. COMPARISON: CT HEAD/BRAIN WO CON 11/09/2022 2:12 AM FINDINGS: Brain: Normal. No hemorrhage. Unremarkable white matter. No mass effect. Cerebral ventricles: No ventriculomegaly. Paranasal sinuses: Visualized sinuses are unremarkable. No fluid levels. Mastoid air cells: Visualized mastoid air cells are well aerated. Bones/joints: Unremarkable. No acute fracture. Soft tissues: Unremarkable. IMPRESSION: No acute intracranial abnormality.
[2023-06-10 21:08] LABS: Basophils # 0.1 K/mm3 (0-0.2); Basophils % 0.8 % (0.1-2.0); Eosinophils # 0.2 K/mm3 (0.0-0.4); Eosinophils % 1.7 % (0.1-12.0); Hematocrit 46.6 % (37.0-47.0); Hemoglobin 15.1 g/dL (12.2-16.2); Lymphocytes # 2.4 K/mm3 (0.7-4.5); Lymphocytes % 25.4 % (10-50); Mean Corpuscular HGB Conc 32.3 g/dL (31.8-35.4); Mean Corpuscular Hemoglobin 31.7 pg (27.0-31.2); Mean Platelet Volume 7.9 fl (7.4-10.4); Monocytes # 0.8 K/mm3 (0.1-1.0); Monocytes % 8.9 % (1.7-9.3); Neutrophils # 5.9 K/mm3 (1.8-7.8); Neutrophils % 63.1 % (37.0-80.0); Platelet Count 426 K/mm3 (142-424); Red Blood Count 4.76 M/mm3 (4.20-5.40); White Blood Count 9.3 K/mm3 (4.8-10.8)
[2023-06-10 21:11] LABS: Chloride 108 mmol/L (98-107); Potassium 3.9 mmoL/L (3.5-5.1); Sodium 139 mmol/L (136-145)
[2023-06-10 21:13] LABS: HCG Qualitative, Serum Negative (Negative)
[2023-06-10 21:14] LABS: Alanine Aminotransferase 93 U/L (12-78); Albumin Level 4.4 g/dl (3.5-5.0); Albumin/Globulin Ratio 1.6 (1.1-1.8); Alkaline Phosphatase 79 U/L (38-126); Anion Gap 15.9 mEq/L (5-15); Aspartate Amino Transferase 66 U/L (14-36); Bilirubin,Total 0.6 mg/dl (0.2-1.3); Blood Urea Nitrogen 11 mg/dl (7-17); Calcium 9.5 mg/dl (8.4-10.2); Carbon Dioxide 19 mmol/L (22.0-30.0); Creatinine Clearance Estimated 95 mL/min (50-200); Estimated Glomerular Filt Rate 106 ml/min (>60); GFR (African American) 128 ML/MIN (>60); Globulin 2.8 g/dL (1.3-3.2); Glucose 130 mg/dl (74-100); Total Protein,Serum 7.2 g/dl (6.3-8.2)
[2023-06-10 21:31] LABS: Free T4 (Free Thyroxine) 1.39 ng/dl (0.78-2.19)
[2023-06-10 21:44] LABS: Barbiturates Screen,Urine Negative ng/ml (<200); Benzodiazepines Screen,Urine Negative ng/ml (<200)
[2023-06-10 21:45] LABS: Amphetamine/Metha Screen,Urine Negative ng/ml (<1000); Methadone Screen,Urine Negative ng/ml (<300)
[2023-06-10 21:46] LABS: Cannabinoid Screen,Urine Negative ng/ml (<50)
[2023-06-10 21:46] LABS: Thyroid Stimulating Hormone 3.77 uIU/mL (0.465-4.68)
[2023-06-10 21:47] LABS: Cocaine Screen,Urine Negative ng/ml (<300); Opiate Screen,Urine Negative ng/ml (<300)
[2023-06-10 21:48] LABS: Phencyclidine Screen,Urine Negative ng/ml (<25)
[2023-06-10 22:15] VITALS: BP 111/63; PULSE 55; RESP 21; TEMP 36.6
== END 2023-06-10 22:17 | disposition home or self-care (01) ==
PROVIDERS: Emergency Provider Emergency Medicine; PCP Physician Assistant
DX: G40.909 Epilepsy, unspecified, not intractable, without status epilepticus (principal); K21.9 Gastro-esophageal reflux disease without esophagitis; J45.909 Unspecified asthma, uncomplicated; Z87.891 Personal history of nicotine dependence
CPT/HCPCS: 70450; 80053; 80307; 84439; 84443; 84703; 85025; 93005; 99285

== ENCOUNTER 2023-06-19 10:38 | Outpatient (CLI) | payer MEDICARE, OTHER, SELFPAY | END 2023-06-19 23:59 | disposition home or self-care (01) | LOC: RT 10:38 | PROVIDERS: PCP Family Medicine; Visit Provider Family Medicine | DX: R55 Syncope and collapse (principal) | CPT/HCPCS: 93225 ==

== ENCOUNTER 2023-06-23 11:40 | Outpatient (CLI) | payer MEDICARE, OTHER, SELFPAY | END 2023-06-23 23:59 | disposition home or self-care (01) | PROVIDERS: PCP Internal Medicine; Visit Provider Family Medicine | DX: R55 Syncope and collapse (principal) | CPT/HCPCS: 93270 ==

== ENCOUNTER 2023-06-27 09:32 | Outpatient (CLI) | payer MEDICARE, OTHER, SELFPAY | END 2023-06-27 23:59 | disposition home or self-care (01) | LOC: RT 09:32 | PROVIDERS: PCP Internal Medicine; Visit Provider Family Medicine | DX: R56.9 Unspecified convulsions (principal) | CPT/HCPCS: 95816 ==

== ENCOUNTER 2023-07-03 15:47 | Outpatient (CLI) | payer MEDICARE, OTHER, SELFPAY ==
--- NOTE | 2023-07-03 15:48 | MR_ITS ---
FINAL REPORT CLINICAL HISTORY: seizure 9 ML PROHANCE FINDINGS: Multiplanar MR imaging of the brain was performed without and with contrast. There is no evidence of intracranial hemorrhage or mass. No abnormal extra-axial fluid collection is seen. The ventricular size is within normal limits. There is no evidence of shift of the midline structures. The posterior fossa and brainstem have an unremarkable appearance. Mild cortical atrophy is seen of the left hippocampus. No area of abnormal restricted diffusion is identified. No abnormal contrast enhancement is seen. Normal major vessel vascular flow voids are noted. IMPRESSION: No acute intracranial abnormality identified. Mild atrophy of the left hippocampus may represent mesial temporal sclerosis. Authenticated and ERN
[2023-07-03] MEDS: SODIUM CHLORIDE 0.9% 10ML SYR (RAD ONLY) 10 ML IV (17:33)
[2023-07-03] MEDS: GADOTERIDOL INJ 17ML SYRINGE 9 ML IV (17:33)
== END 2023-07-03 23:59 | disposition home or self-care (01) ==
LOC: RAD 15:48
PROVIDERS: PCP Family Medicine; Visit Provider Family Medicine
DX: R56.9 Unspecified convulsions (principal)
CPT/HCPCS: 70553; A9576

== ENCOUNTER 2023-07-07 10:13 | Outpatient (POV) | payer MEDICARE, OTHER, SELFPAY ==
[2023-07-07 10:55] VITALS: BP 102/67; PULSE 68; RESP 18; O2SAT 99; BMI 16.6
--- NOTE | 2023-07-07 10:59 | EXP.PAIN.SOA ---
[facility] Pain Management SOAP Note Subjective:: Patient is a pleasant 23-year-old female who presents today for 3-month follow-up. Today she rates her pain a 5 out of 10. Patient denies any new trauma or injury. Patient is currently managed with baclofen 10 mg 3 times a day and compounded cream. She denies any side effects from this medication. She states it does still help and overall she is doing well with this plan of care. Patient is prescribed clonazepam from an outside provider. Her Colt has been reviewed and is appropriate. Review of Systems: General: No recent weight changes, no fever, no sleep disturbances Respiratory: No cough, no shortness of air, no recurring pulmonary infections Cardiovascular/peripheral vascular: No chest pain, no palpitations, no edema, no shortness of breath Gastrointestinal: No new onset incontinence, normal bowel movements reported Genitourinary: No new onset incontinence Musculoskeletal: Low back pain Psychiatric: [Normal mood/affect] Neurological: [Denies weakness in extremities], [denies balance issues] Objective:: Physical Exam: General: Alert and oriented x3, no acute distress, pleasant and cooperative Lungs: Respirations even and unlabored, symmetrical chest expansion Eyes: PERRL Musculoskeletal: Flexion and extension of lumbar [spine] within normal limits Neurological: Speech clear, no gross sensory deficit Assessment:: Low back pain with lumbar facet arthropathy Plan:: I will refill the patient's baclofen and provide a 3-month supply of this medication. Patient will return to clinic in 3 months for reevaluation of symptoms and plan of care. Patient has been instructed to contact the clinic with any concerns before the next appointment. Dr. Quach has reviewed this note and agrees with this plan of care. This note was dictated using voice recognition software and make contain errors or omissions. [facility] Disclaimer: The information contained in this section may have been updated after the patient was seen, as this information can be updated by other users. Medical History Dehydration Influenza Anxiety and depression History of gastroesophageal reflux (GERD) Allergies Hyperthyroidism Reactive airway disease with acute exacerbation SVT (supraventricular tachycardia) Palpitations Surgical History History of loop recorder History of esophagogastroduodenoscopy (EGD) Family History Other Cancer Heart disease Seizures Social History Smoking Status: Former smoker tobacco type: e-cigarettes second hand exposure: No alcohol intake: never substance use type: denies use current occupational status: unemployed Travel in the last 8 weeks: None household members: significant other housing: house caffeine: Yes
== END 2023-07-07 23:59 | disposition home or self-care (01) ==
PROVIDERS: PCP Internal Medicine; Visit Provider Nurse Practitioner Family
DX: M47.816 Spondylosis without myelopathy or radiculopathy, lumbar region (principal); M54.50 Low back pain, unspecified
CPT/HCPCS: 99212; G0463

== ENCOUNTER 2023-07-22 07:53 | Day surgery (SDC) | payer MEDICARE, OTHER, SELFPAY ==
[2023-07-22 07:59] VITALS: BMI 17.6
[2023-07-22 08:10] VITALS: BP 113/61; PULSE 57; RESP 20; TEMP 36.6; O2SAT 99
[2023-07-22] MEDS: CEFAZOLIN SODIUM 1 GM in 0.9 % SODIUM CHLORIDE 50 ML IV (08:30)
[2023-07-22] MEDS: LIDOCAINE 2% W/EPI 1:100,000 20ML VIAL 20 ML SQ (08:30)
[2023-07-22 08:37] VITALS: BP 105/62; PULSE 43; RESP 19; O2SAT 97
[2023-07-22 08:43] VITALS: PULSE 41
--- NOTE | 2023-07-22 10:03 | P.PCN_ITS ---
[facility] Loop Recorder Date: 07/22/23 Time: 08:30 Procedure Performed:: Removal of loop recorder Indication:: Battery depleted Technique:: Patient was brought to the cardiac [employer] as an outpatient. After informed consent was obtained, 1% lidocaine was used to anesthetize the area over the device. A surgical blade was used to dissect down to the device and forceps used to remove it. Surgical glue and closure device were used to approximate the skin edges together. Pressure dressing was applied with Tegaderm over that. Patient tolerated the procedure well. Impression:: Successful removal of loop recorder Serial Number:: Not identified Plan:: Routine postop care
== END 2023-07-22 08:53 | disposition home or self-care (01) ==
PROVIDERS: PCP Internal Medicine; Visit Provider Internal Medicine
DX: R55 Syncope and collapse (principal); Z79.899 Other long term (current) drug therapy; F17.200 Nicotine dependence, unspecified, uncomplicated; F33.8 Other recurrent depressive disorders
CPT/HCPCS: 33286

== ENCOUNTER 2023-09-04 13:20 | Outpatient (CLI) | payer MEDICARE, OTHER, SELFPAY ==
[2023-10-17 10:08] LABS: Cotinine 287.1; Nicotine 18.7
== END 2023-09-04 23:59 | disposition home or self-care (01) ==
LOC: LAB 13:21
PROVIDERS: PCP Internal Medicine; Visit Provider Nurse Practitioner
DX: Z72.0 Tobacco use (principal)
CPT/HCPCS: 80323; G0480

== ENCOUNTER 2023-09-23 13:19 | Emergency (ER) | payer MEDICARE, OTHER, SELFPAY ==
[2023-09-23 13:25] VITALS: BP 107/64; PULSE 71; RESP 20; TEMP 36.8; O2SAT 100; BMI 18.6
--- NOTE | 2023-09-23 13:36 | EXP.UTC ---
Discharge Plan Disposition Patient Disposition: Home, Self-Care Condition: Good Prescriptions Prescriptions: New nitrofurantoin monohyd/m-cryst [Macrobid] 100 mg capsule 100 mg PO Q12H 7 Days Qty: 14 0RF Rx Instructions: must administer with a meal/food phenazopyridine [Pyridium] 200 mg tablet 200 mg PO Q8H 2 Days Qty: 6 0RF No Action diltiazem HCl 180 mg capsule,extended release 24hr 180 mg PO DAILY Patient Comments: TAKE ONE CAPSULE BY MOUTH EVERY DAY nadolol 80 mg tablet See Rx Instructions .ROUTE .COMPLEX Qty: 30 5RF Dose Instruction: TAKE ONE TABLET BY MOUTH EVERY DAY Rx Instructions: TAKE ONE TABLET BY MOUTH EVERY DAY methimazole 5 mg tablet 5 mg PO DAILY baclofen 10 mg tablet 10 mg PO TID PRN (Reason: muscle spasm) Qty: 90 2RF amitriptyline 10 mg tablet 10 mg PO DAILY Patient Comments: TAKE ONE TABLET BY MOUTH EVERY DAY AT BEDTIME omeprazole 20 mg capsule,delayed release(DR/EC) 20 mg PO DAILY Patient Comments: TAKE ONE CAPSULE BY MOUTH EVERY DAY Vraylar 1.5 mg capsule 1.5 mg PO DAILY Patient Comments: TAKE ONE CAPSULE BY MOUTH EVERY DAY Referrals Follow up/Referrals: Blade Tang DO [Primary Care Provider] - See instructions Activity Restrictions/Add. Instructions Additional Instructions/Restrictions: *Increase fluids. Water not Soda or Tea *Start antibiotic immediately and be sure to take as ordered for the FULL length of time although you should start to see improvement over the next 48 hours *Pyridium as needed Remember this medication will turn your urine . This is normal but it will stain what ever it gets on *You should not use Pyridium for more than 48 hours. If so , follow up with your primary physician to review urine culture and ensure that antibiotic is adequate for infection *Be SURE to follow up anytime for new or worsening symptoms with your family doctor. AND in 48 hours for urine culture results with your family doctor, if you do not have a doctor then you may call back to the [facility] for urine culture results and further treatment. We do recommend that you choose and establish care with a Primary Care Physician. ?AND follow up with them ?in 10-14 days to repeat UA to ensure infection is resolved and blood no longer present *Be sure to let your PCP know that we sent urine cultures from the [facility] so they can follow up to ensure that you area the on the correct antibiotic Call your doctor office and make appointment for 48 hours (2 days from today) ?to follow up and get the results of your urine culture and further treatment Clinical Impressions Clinical Impression: UTI (urinary tract infection) Instructions Patient Instructions: DI for Urinary Tract Infection (UTI), Urinary Tract Infection, Nitrofurantoin Print Language Print Language: Malawian Discharge ED Provider: Tracey Babin [facility] HPI General Stated complaint: uti Mode of Arrival: Ambulatory Source of Information: Patient Limitations: No Limitations Time Seen by Provider: 09/23/23 13:37 Description of Symptoms (Recalled from Triage Doc. by RN): PATIENT C/O LOWER BACK PAIN, STOMACH CRAMPS, AND BURNING/FREQUENCY WITH URINATION SINCE YESTERDAY HEENT Symptoms (Recalled from RN notes): No Resp Symptoms (Recalled from RN notes): No Skin Symptoms (Recalled from RN notes): No MS Symptoms (Recalled from RN notes): No Functional Status (Recalled from RN notes): WNL History of Present Illness Provider Complaint: Patient states that she started yesterday having achy like feeling in her lower back, crampy like pressure in her lower abdomen, burning with urination and feeling of urgency and frequency thinks she may have a UTI Related Data Home Medications ?Medication ?Instructions ?Recorded ?Confirmed methimazole 5 mg tablet 5 mg PO DAILY 04/09/23 09/23/23 diltiazem HCl 180 mg 180 mg PO DAILY 06/19/23 09/23/23 capsule,extended release 24 hr amitriptyline 10 mg tablet 10 mg PO DAILY 09/23/23 09/23/23 cariprazine 1.5 mg capsule 1.5 mg PO DAILY 09/23/23 09/23/23 (Vraylar) omeprazole 20 mg capsule,delayed 20 mg PO DAILY 09/23/23 09/23/23 release Previous Rx's ?Medication ?Instructions ?Recorded nadolol 80 mg tablet See Rx Instructions .Route 04/29/23 .COMPLEX #30 tabs baclofen 10 mg tablet 10 mg PO TID PRN muscle spasm #90 07/07/23 tabs nitrofurantoin 100 mg PO Q12H 7 days #14 caps 09/23/23 monohydrate/macrocrystals 100 mg capsule (Macrobid) phenazopyridine 200 mg tablet 200 mg PO Q8H pain 2 days #6 tabs 09/23/23 (Pyridium) Allergies Allergy/AdvReac Type Severity Reaction Status Date / Time No Known Allergies Allergy Verified 09/04/23 12:49 Worker's Comp Is this a Worker's Comp case?: No [facility] Disclaimer: The information contained in this section may have been updated after the patient was seen, as this information can be updated by other users. Medical History Breast mass, right SCIWORA (spinal cord injury without radiographic abnormality) Cervical radiculopathy Seizure Dehydration Influenza Anxiety and depression History of gastroesophageal reflux (GERD) Hyperthyroidism Reactive airway disease with acute exacerbation SVT (supraventricular tachycardia) Palpitations Surgical History History of loop recorder History of esophagogastroduodenoscopy (EGD) Family History Other Cancer Heart disease Seizures Social History Smoking Status: Former smoker tobacco type: e-cigarettes second hand exposure: No alcohol intake: never substance use type: denies use current occupational status: unemployed Travel in the last 8 weeks: None household members: significant other housing: house caffeine: Yes ROS Obtained: Yes All systems reviewed & no additional complaints except as documented and Yes Systems reviewed as appropriate & no additional complaints except as documented Constitutional Constitutional: Reports system reviewed and no additional complaints, except as documented, Reports as per HPI, Denies body ache, Denies chills and Denies fever(s) ENT Ears, Nose, Mouth, and Throat: Reports system reviewed and no additional complaints, except as documented and Reports as per HPI Cardiovascular Cardiovascular: Reports system reviewed and no additional complaints, except as documented and Reports as per HPI Respiratory Respiratory: Reports system reviewed and no additional complaints, except as documented and Reports as per HPI Gastrointestinal Gastrointestingal: Reports system reviewed and no additional complaints, except as documented, as per HPI and cramping; Denies diarrhea, nausea or vomiting Genitourinary Female Genitourinary: Reports system reviewed and no additional complaints, except as documented, Reports as per HPI, Reports dysuria, Reports urinary frequency and Reports urinary urgency Physical Exam General General appearance: alert and in no apparent distress ENT ENT exam: Present mucous membranes moist Chest Chest inspection: Present normal inspection and symmetric chest wall rise Respiratory Respiratory exam: Present normal lung sounds bilaterally; Absent respiratory distress or wheezes Cardiovascular Cardiovascular exam: Present regular rate, normal rhythm and normal heart sounds Abdominal Exam Abdominal exam: Present soft and normal bowel sounds; Absent distention or tenderness Neurological Exam Neurological exam: Present alert, oriented X3 and normal gait Medical Decision Making Colt Inquiry Pt receiving controlled substance: No Colt was queried for this patient: No Vital Signs: 09/23/23 13:25 Temperature 98.3 F Temperature Source Oral Pulse Rate [Left Brachial] 71 Respiratory Rate 20 Blood Pressure [Left Arm] 107/64 L Blood Pressure Mean [Left Arm] 78 Blood Pressure Source [Left Arm] Automatic Cuff Blood Pressure Position [Left Arm] Sitting 02 Sat by Pulse Oximetry 100 Oxygen Delivery Method Room Air Lab Data Lab results reviewed: Yes I reviewed the patient's lab results. Orders (Tests/Meds): ORDERS Category Date Time Status Urine Culture Stat Micro 09/23/23 13:34 Ordered
[2023-09-23 13:41] LABS: Apearance,Urine Cloudy (Clear); Bilirubin,Urine Negative (Negative); Blood, Urine Trace (Negative); Color,Urine Yellow (Yellow); Glucose,Urine (UA) Negative (Negative); Ketones,Urine Negative (Negative); Protein,Urine Negative (Negative)
[2023-09-23 13:42] LABS: UTC Leukocyte Esterase,Urine 2+ (Negative); UTC Nitrate,Urine Positive (Negative); UTC Pregnancy Test, Urine Negative (Negative); Urobilinogen,Urine 1 EU/dl (0.2)
[2023-09-23 13:48] VITALS: BP 107/64; PULSE 71; RESP 20; TEMP 36.8; O2SAT 100
--- NOTE | 2023-09-27 16:06 | PC.NURSE ---
REVIEWED URINE CULTURE WITH Myrna ARIAS APRN. NO CHANGE NEEDED
== END 2023-09-23 13:50 | disposition home or self-care (01) ==
PROVIDERS: Emergency Provider Nurse Practitioner; PCP Internal Medicine
DX: N39.0 Urinary tract infection, site not specified (principal); B96.29 Other Escherichia coli [E. coli] as the cause of diseases classified elsewhere; M54.59 Other low back pain; R30.0 Dysuria; R35.0 Frequency of micturition; R39.15 Urgency of urination
CPT/HCPCS: 81003; 81025; 87086; 87088; 87186; 99212; 99214; G0463

== ENCOUNTER 2023-10-22 10:12 | Outpatient (POV) | payer MEDICARE, OTHER, SELFPAY ==
[2023-10-22 10:26] VITALS: BP 99/58; PULSE 71; RESP 16; O2SAT 100; BMI 18.4
--- NOTE | 2023-10-22 10:47 | EXP.PAIN.SOA ---
[facility] Disclaimer: The information contained in this section may have been updated after the patient was seen, as this information can be updated by other users. Medical History Breast mass, right SCIWORA (spinal cord injury without radiographic abnormality) Cervical radiculopathy Seizure Dehydration Influenza Anxiety and depression History of gastroesophageal reflux (GERD) Hyperthyroidism Reactive airway disease with acute exacerbation SVT (supraventricular tachycardia) Palpitations Surgical History History of loop recorder History of esophagogastroduodenoscopy (EGD) Family History Other Cancer Heart disease Seizures Social History Smoking Status: Former smoker tobacco type: e-cigarettes second hand exposure: No alcohol intake: never substance use type: denies use current occupational status: unemployed Travel in the last 8 weeks: None household members: significant other housing: house caffeine: Yes PM Subjective & Objective Subjective Subjective:: Patient is a pleasant 23-year-old female who presents today for 3-month follow-up. Today she rates her pain a 4 out of 10. She denies any new trauma or injury. She does state that overall she feels like she is maintaining. Patient is currently managed with baclofen 10 mg 3 times a day and compounded cream. Her Colt has been reviewed and is appropriate. Review of Systems: General: No recent weight changes, no fever, no sleep disturbances Respiratory: No cough, no shortness of air, no recurring pulmonary infections Cardiovascular/peripheral vascular: No chest pain, no palpitations, no edema, no shortness of breath Gastrointestinal: No new onset incontinence, normal bowel movements reported Genitourinary: No new onset incontinence Musculoskeletal: Low back pain Psychiatric: [Normal mood/affect] Neurological: [Denies weakness in extremities], [denies balance issues] Pain at rest (0-10 scale): 4 Objective Objective:: Physical Exam: General: Alert and oriented x3, no acute distress, pleasant and cooperative Lungs: Respirations even and unlabored, symmetrical chest expansion Eyes: PERRL Musculoskeletal: Flexion and extension of lumbar within normal limits Neurological: Speech clear, no gross sensory deficit Has patient had previous pain injection?: No Conservative treatment options previously tried: Home exercise plan Length of treatment: Longer than 6 weeks Meds Home Medications and Allergies Home Medications ?Medication ?Instructions ?Recorded ?Confirmed ?Type methimazole 5 mg tablet 5 mg PO DAILY 04/09/23 10/22/23 History nadolol 80 mg tablet See Rx Instructions .Route 04/29/23 10/22/23 Rx .COMPLEX #30 tabs cariprazine 1.5 mg capsule 1.5 mg PO DAILY 09/23/23 10/22/23 History (Vraylar) omeprazole 20 mg capsule,delayed 20 mg PO DAILY 09/23/23 10/22/23 History release fluoxetine 20 mg capsule (Prozac) 20 mg PO DAILY #30 caps 09/30/23 10/22/23 Rx blood pressure monitor #1 ea 10/01/23 10/22/23 Rx estradiol 2 mg tablet 2 mg PO DAILY PRN as needed 10/01/23 10/22/23 History amitriptyline 10 mg tablet 10 mg PO DAILY #90 tabs 10/02/23 10/22/23 Rx baclofen 10 mg tablet 10 mg PO TID PRN muscle spasm #90 10/02/23 10/22/23 Rx tabs naratriptan 2.5 mg tablet 2.5 mg PO ONCE PRN as needed 10/02/23 10/22/23 History diltiazem HCl 180 mg 180 mg PO DIRECTED 10/15/23 10/22/23 History capsule,extended release 24 hr New Prescriptions to Start Prescriptions: Allergies Allergy/AdvReac Type Severity Reaction Status Date / Time No Known Allergies Allergy Verified 10/15/23 12:57 Assessment and Plan *Assessment and plan (1) Low back pain: Status: Acute Qualifiers: Chronicity: acute Back pain laterality: bilateral Sciatica presence: unspecified whether sciatica present Qualified Code(s): M54.50 - Low back pain, unspecified Category: Medical Code(s): M54.50 - Low back pain, unspecified Plan I will refill the patient's baclofen and provide a 3-month supply of this medication. Patient will return to clinic in 3 months for reevaluation of symptoms and plan of care. Patient has been instructed to contact the clinic with any concerns before the next appointment. Dr. Quach has reviewed this note and agrees with this plan of care. This note was dictated using voice recognition software and make contain errors or omissions. All injections are used with Lidocaine or Bupivacaine and Depo Medrol.
== END 2023-10-22 23:59 | disposition home or self-care (01) ==
PROVIDERS: PCP Internal Medicine; Visit Provider Nurse Practitioner Family
DX: M54.50 Low back pain, unspecified (principal); Z95.811 Presence of heart assist device; Z87.891 Personal history of nicotine dependence
CPT/HCPCS: 99212; G0463

== ENCOUNTER 2023-11-25 10:10 | Emergency (ER) | payer MEDICARE, OTHER, SELFPAY ==
[2023-11-25 10:40] VITALS: BP 113/78; PULSE 121; RESP 20; TEMP 37.1; O2SAT 97; BMI 18.0
--- NOTE | 2023-11-25 10:41 | EXP.UTC ---
Discharge Plan Disposition Patient Disposition: Home, Self-Care Condition: Good Prescriptions Prescriptions: New amoxicillin 500 mg tablet 500 mg PO TID 10 Days Qty: 30 0RF [id number]-[id number] [Bromfed DM] 2-30-10 mg/5 mL Syrup 5 ml PO Q6H PRN (Reason: Cough) Qty: 240 0RF ondansetron 4 mg Tablet,Disintegrating 4 mg PO Q8H PRN (Reason: Nausea) Qty: 12 0RF No Action (DME) blood pressure monitor Kit See Rx Instructions .ROUTE .MEDSUPPLY Qty: 1 0RF Rx Instructions: As directed diltiazem HCl 180 mg capsule,extended release 24hr 180 mg PO DAILY Patient Comments: TAKE ONE CAPSULE BY MOUTH EVERY DAY amitriptyline 10 mg tablet 10 mg PO DAILY Patient Comments: TAKE ONE TABLET BY MOUTH EVERY DAY omeprazole 20 mg capsule,delayed release(DR/EC) 20 mg PO DAILY Patient Comments: TAKE ONE CAPSULE BY MOUTH EVERY DAY fluoxetine 20 mg capsule 20 mg PO DAILY Patient Comments: TAKE ONE CAPSULE BY MOUTH EVERY DAY Vraylar 1.5 mg capsule 1.5 mg PO DAILY Patient Comments: TAKE ONE CAPSULE BY MOUTH EVERY DAY Referrals Follow up/Referrals: Blade Tang DO [Primary Care Provider] - See instructions Activity Restrictions/Add. Instructions Additional Instructions/Restrictions: Drink plenty of fluids. Take tylenol or ibuprofen for pain or fever. Take the medications as directed. Follow up with your regular doctor. GO TO THE ER FOR ANY WORSENING SYMPTOMS Clinical Impressions Clinical Impression: Pharyngitis, Acute viral syndrome Stand Alone Forms Stand Alone Forms: Work/School Release Instructions Patient Instructions: DI for Pharyngitis/Tonsillopharyngitis -- Adult, DI for Viral Syndrome Print Language Print Language: Swedish Discharge ED Provider: Santy Rosales [facility] General Stated complaint: sore throat, cough, vomiting, headache Time Seen by Provider: 11/25/23 10:41 Related Data Home Medications ?Medication ?Instructions ?Recorded ?Confirmed amitriptyline 10 mg tablet 10 mg PO DAILY 11/25/23 11/25/23 cariprazine 1.5 mg capsule 1.5 mg PO DAILY 11/25/23 11/25/23 (Vraylar) diltiazem HCl 180 mg 180 mg PO DAILY 11/25/23 11/25/23 capsule,extended release 24 hr fluoxetine 20 mg capsule 20 mg PO DAILY 11/25/23 11/25/23 omeprazole 20 mg capsule,delayed 20 mg PO DAILY 11/25/23 11/25/23 release Previous Rx's ?Medication ?Instructions ?Recorded blood pressure monitor #1 ea 10/01/23 amoxicillin 500 mg tablet 500 mg PO TID 10 days #30 tabs 11/25/23 [id number]-mdvwvigaawhxgiy-[id number] 5 ml PO Q6H PRN Cough #240 mL 11/25/23 2 mg-30 mg-10 mg/5 mL oral syrup (Bromfed DM) ondansetron 4 mg disintegrating 4 mg PO Q8H PRN Nausea #12 tabs 11/25/23 tablet Allergies Allergy/AdvReac Type Severity Reaction Status Date / Time No Known Allergies Allergy Verified 10/15/23 12:57 [facility] Disclaimer: The information contained in this section may have been updated after the patient was seen, as this information can be updated by other users. Medical History Breast mass, right SCIWORA (spinal cord injury without radiographic abnormality) Cervical radiculopathy Seizure Dehydration Influenza Anxiety and depression History of gastroesophageal reflux (GERD) Hyperthyroidism Reactive airway disease with acute exacerbation SVT (supraventricular tachycardia) Palpitations Surgical History History of loop recorder History of esophagogastroduodenoscopy (EGD) Family History Other Cancer Heart disease Seizures Social History Smoking Status: Former smoker tobacco type: e-cigarettes second hand exposure: No alcohol intake: never substance use type: denies use current occupational status: unemployed Travel in the last 8 weeks: None household members: significant other housing: house caffeine: Yes ROS Obtained: Yes All systems reviewed & no additional complaints except as documented Constitutional Constitutional: Reports chills and Reports fever(s) Eyes Eyes: Denies eye discharge ENT Ears, Nose, Mouth, and Throat: Reports as per HPI Cardiovascular Cardiovascular: Denies chest pain Respiratory Respiratory: Denies chest congestion and Reports cough Gastrointestinal Gastrointestingal: Reports nausea; Denies abdominal pain, constipation, cramping, diarrhea or vomiting Musculoskeletal Musculoskeletal: Denies arthralgias Integumentary/Breasts Skin/Breast: Denies rash Neurologic Neurologic: Denies paresthesias Physical Exam General General appearance: alert and in no apparent distress Eye Eye exam: Present normal appearance, PERRL and EOMI ENT ENT exam: Present mucous membranes moist and normal external ear exam Expanded ENT Exam External ear exam: Present normal external inspection TM/Canal exam: Bilateral TM: erythema and bulging Nose exam: Absent sinus tenderness Nasal speculum exam: Bilateral: normal Mouth exam: Present normal external inspection; Absent drooling Teeth exam: Present normal inspection Throat exam: Present tonsillar erythema and tonsillomegaly Neck Neck exam: Present normal inspection, full ROM and trachea midline; Absent tenderness, lymphadenopathy or thyromegaly Chest Chest inspection: Present normal inspection and symmetric chest wall rise; Absent tenderness or rash Respiratory Respiratory exam: Present normal lung sounds bilaterally; Absent respiratory distress, wheezes, stridor or accessory muscle use Cardiovascular Cardiovascular exam: Present regular rate, normal rhythm and normal heart sounds Abdominal Exam Abdominal exam: Present soft; Absent distention, tenderness, guarding, rebound or rigidity Extremities Exam Extremities exam: Present normal inspection, full ROM and normal capillary refill; Absent tenderness or calf tenderness Back Exam Back exam: Present normal inspection and full ROM; Absent tenderness Neurological Exam Neurological exam: Present alert and oriented X3 Psychiatric Psychiatric exam: Present normal affect and normal mood Skin Skin exam: Present warm, dry, intact and normal color Lymphatic Lymphatic Findings: no adenopathy Medical Decision Making Medical Records Medical records reviewed: No I reviewed the patient's medical records. Screening: Per USPSTF and CDC recommendations, given the prevalence of disease in our region, it is our hospital?s policy to screen for HIV and viral Hepatitis for all patients aged 18 and over and those with ongoing risk factors. Colt Inquiry Pt receiving controlled substance: No
[2023-11-25 11:08] LABS: UTC Influenza A Antigen Negative (Negative); UTC Strep Screen (Rapid) Negative (Negative)
[2023-11-25 11:09] LABS: UTC Influenza B Antigen Negative (Negative)
[2023-11-25 11:43] VITALS: BP 113/78; PULSE 121; RESP 20; TEMP 37.1; O2SAT 97
[2023-11-25 11:51] LABS: Adenovirus,PCR Not Detected (NotDetected); Bordetella Pertussis Not Detected (NotDetected); Chlamydophila Pneumoniae, PCR Not Detected (NotDetected); Coronavirus 19, PCR Not Detected (NotDetected); Coronavirus 229E Not Detected (NotDetected); Coronavirus NL63 Not Detected (NotDetected); Coronavirus OC43 Not Detected (NotDetected); Coronovirus HKU1,PCR Not Detected (NotDetected); Human Metapneumovirus Not Detected (NotDetected); Influenza A, PCR Not Detected (NotDetected); Influenza AH1, 2009 Not Detected (NotDetected); Influenza AH1, PCR Not Detected (NotDetected); Influenza AH3,PCR Not Detected (NotDetected); Influenza B, PCR Not Detected (NotDetected); Mycoplasma Pneumoniae, PCR Not Detected (NotDetected); Parainfluenza 1, PCR Not Detected (NotDetected); Parainfluenza 2, PCR Not Detected (NotDetected); Parainfluenza 3, PCR Not Detected (NotDetected); Parainfluenza 4, PCR Not Detected (NotDetected); Respiratory Syncytial Virus Not Detected (NotDetected); Rhinovirus/Enterovirus Not Detected (NotDetected)
== END 2023-11-25 11:44 | disposition home or self-care (01) ==
PROVIDERS: Emergency Provider Nurse Practitioner Family; PCP Internal Medicine
DX: B34.9 Viral infection, unspecified (principal); J02.9 Acute pharyngitis, unspecified
CPT/HCPCS: 87265; 87486; 87581; 87632; 87635; 87804; 87880; 99212; G0381

== ENCOUNTER 2024-01-05 14:08 | Outpatient (CLI) | payer MEDICARE, OTHER, SELFPAY ==
[2024-01-05 16:00] LABS: HIV (1&2) Antibody Rapid NONREACTIVE (NONREACTIVE)
[2024-01-06 09:22] LABS: HCV Ab Non Reactive (Non Reactive)
[2024-01-06 13:34] LABS: Rapid Plasma Reagin Ab Titer Non Reactive titer (NonRea<1:1)
== END 2024-01-05 23:59 | disposition home or self-care (01) ==
LOC: LAB 14:08
PROVIDERS: PCP Internal Medicine; Visit Provider Nurse Practitioner Obstetrics & Gynecology
DX: Z01.419 Encounter for gynecological examination (general) (routine) without abnormal findings (principal); Z11.59 Encounter for screening for other viral diseases; Z11.4 Encounter for screening for human immunodeficiency virus [HIV]; Z72.51 High risk heterosexual behavior; Z72.89 Other problems related to lifestyle
CPT/HCPCS: 86593; 86803; 87389

== ENCOUNTER 2024-01-16 13:38 | Outpatient (POV) | payer MEDICARE, OTHER, SELFPAY ==
[2024-01-16 13:59] VITALS: BP 112/78; PULSE 90; RESP 16; O2SAT 97; BMI 19.1
--- NOTE | 2024-01-16 14:32 | A.OFFVIS_ITS ---
[facility] Disclaimer: The information contained in this section may have been updated after the patient was seen, as this information can be updated by other users. Medical History Breast mass, right SCIWORA (spinal cord injury without radiographic abnormality) Cervical radiculopathy Seizure Dehydration Influenza Anxiety and depression History of gastroesophageal reflux (GERD) Hyperthyroidism Reactive airway disease with acute exacerbation SVT (supraventricular tachycardia) Palpitations Surgical History History of loop recorder History of esophagogastroduodenoscopy (EGD) Family History Other Cancer Heart disease Seizures Social History Smoking Status: Former smoker tobacco type: e-cigarettes second hand exposure: No alcohol intake: never substance use type: denies use current occupational status: other household members: significant other housing: house caffeine: Yes PM Subjective & Objective Subjective Subjective:: Patient is a pleasant 23-year-old female who presents today for 3-month follow- up. Today she rates her pain an 8 out of 10. She denies any new trauma or injury. She does state that no longer is the baclofen really seeming to help like what it was initially. She states she still has the chronic pain throughout her low back. She is prescribed compounded cream. Patient does have an extensive heart history. Her Colt has been reviewed and is appropriate. Review of Systems: General: No recent weight changes, no fever, no sleep disturbances Respiratory: No cough, no shortness of air, no recurring pulmonary infections Cardiovascular/peripheral vascular: No chest pain, no palpitations, no edema, no shortness of breath Gastrointestinal: No new onset incontinence, normal bowel movements reported Genitourinary: No new onset incontinence Musculoskeletal: Low back Psychiatric: [Normal mood/affect] Neurological: [Denies weakness in extremities], [denies balance issues] Pain at rest (0-10 scale): 8 Objective Objective:: Physical Exam: General: Alert and oriented x3, no acute distress, pleasant and cooperative Lungs: Respirations even and unlabored, symmetrical chest expansion Eyes: PERRL Musculoskeletal: Flexion and extension of lumbar [spine] somewhat guarded secondary to pain Neurological: Speech clear, no gross sensory deficit Has patient had previous pain injection?: No Conservative treatment options previously tried: Home exercise plan Length of treatment: Longer than 12 Meds Home Medications and Allergies Home Medications ?Medication ?Instructions ?Recorded ?Confirmed ?Type blood pressure monitor #1 ea 10/01/23 01/16/24 Rx diltiazem HCl 180 mg 180 mg PO DAILY 11/25/23 01/16/24 History capsule,extended release 24 hr fluoxetine 20 mg capsule 20 mg PO DAILY 11/25/23 01/16/24 History omeprazole 20 mg capsule,delayed 20 mg PO DAILY 11/25/23 01/16/24 History release cariprazine 1.5 mg capsule 1.5 mg PO DAILY #30 caps 12/29/23 01/16/24 Rx (Vraylar) etonogestrel 68 mg subdermal 1 implant subdermal DIRECTED 01/05/24 01/16/24 History implant (Nexplanon) amitriptyline 10 mg tablet 20 - 40 mg (2 - 4 x 10 mg) PO QHS 01/14/24 01/16/24 Rx PRN sleep #60 tabs fluoxetine 10 mg capsule 10 mg PO DAILY #30 caps 01/14/24 01/16/24 Rx methocarbamol 500 mg tablet 500 mg PO TID #90 tabs 01/16/24 Rx New Prescriptions to Start Prescriptions: methocarbamol Ashleigh Mchugh Allergies Allergy/AdvReac Type Severity Reaction Status Date / Time No Known Allergies Allergy Verified 01/14/24 13:08 Assessment and Plan *Assessment and plan (1) Low back pain: Status: Acute Qualifiers: Back pain laterality: bilateral Chronicity: acute Sciatica presence: unspecified whether sciatica present Qualified Code(s): M54.50 - Low back pain, unspecified Category: Medical Code(s): M54.50 - Low back pain, unspecified Plan I did discuss with the patient that I will send in a new muscle relaxer of methocarbamol 500 mg 3 times daily and provide a 1 month supply of this medication. Patient will return to clinic in 1 month for reevaluation of sympto ms and plan of care. Patient has been instructed to contact the clinic with any concerns before the next appointment. Dr. Quach has reviewed this note and agrees with this plan of care. This note was dictated using voice recognition software and make contain errors or omissions. All injections are used with Lidocaine or Bupivacaine and Depo Medrol.
== END 2024-01-16 23:59 | disposition home or self-care (01) ==
PROVIDERS: PCP Internal Medicine; Visit Provider Nurse Practitioner Family
DX: M54.50 Low back pain, unspecified (principal); Z87.891 Personal history of nicotine dependence
CPT/HCPCS: 99212; G0463

== ENCOUNTER 2024-01-27 09:44 | Emergency (ER) | payer MEDICARE, OTHER, SELFPAY ==
[2024-01-27 10:21] VITALS: BP 101/81; PULSE 83; RESP 18; TEMP 37; O2SAT 98; BMI 19.6
--- NOTE | 2024-01-27 10:25 | ED_ITS ---
Discharge Plan Disposition Patient Disposition: Home, Self-Care Condition: Good Prescriptions Prescriptions: No Action amitriptyline 10 mg tablet 20 - 40 mg PO QHS PRN (Reason: sleep) Qty: 60 0RF fluoxetine 10 mg capsule 10 mg PO DAILY Qty: 30 2RF Rx Instructions: Take with the Fluoxetine 20 mg daily. (DME) blood pressure monitor Kit See Rx Instructions .ROUTE .MEDSUPPLY Qty: 1 0RF Rx Instructions: As directed Nexplanon 68 mg implant 1 implant subdermal DIRECTED Vraylar 1.5 mg capsule 1.5 mg PO DAILY Qty: 30 0RF Rx Instructions: Dx: F33.0 diltiazem HCl 180 mg capsule,extended release 24hr 180 mg PO DAILY Patient Comments: TAKE ONE CAPSULE BY MOUTH EVERY DAY omeprazole 20 mg capsule,delayed release(DR/EC) 20 mg PO DAILY Patient Comments: TAKE ONE CAPSULE BY MOUTH EVERY DAY fluoxetine 20 mg capsule 20 mg PO DAILY Patient Comments: TAKE ONE CAPSULE BY MOUTH EVERY DAY methocarbamol 500 mg tablet 500 mg PO TID Qty: 90 0RF Referrals Follow up/Referrals: Blade Tang DO [Primary Care Provider] - See instructions Activity Restrictions/Add. Instructions Additional Instructions/Restrictions: *Monitor Temp, Over the counter Motrin or Tylenol as directed/as needed Tylenol every 4 hours and Motrin every 6 hours (as long as your family doctor has told you that you can take it) for fever or pain. and straight to ER if unable to lower temp less than 101.0 after medication given *Warm salt water gargles may help to soothe the throat *Throat Lozenges? *Warm fluids like tea with honey may help to soothe the throat? *Sleep elevated *Humidifier/Vaporizer Follow up IMMEDIATELY for new or worsening symptoms or no Noticeable im provement over the next 48-72 hours. 911 for difficulty breathing or swallowing You were tested for today for COVID19 your test result should be back in the next 24 hours, you may check your results on the [facility] Clinical Impressions Clinical Impression: Encounter for laboratory testing for COVID-19 virus Instructions Patient Instructions: COVID-19, DI for COVID-19 (Suspected or Confirmed ) Print Language Print Language: Yakut Discharge ED Provider: Tracey Babin [facility] [place] General Stated complaint: test for covid Mode of Arrival: Ambulatory Source of Information: Patient Time Seen by Provider: 01/27/24 10:25 Description of Symptoms (Recalled from Triage Doc. by RN): WANTS COVID TESTING HEENT Symptoms (Recalled from RN notes): No Resp Symptoms (Recalled from RN notes): Yes Skin Symptoms (Recalled from RN notes): No MS Symptoms (Recalled from RN notes): No Functional Status (Recalled from RN notes): WNL History of Present Illness Provider Complaint: Patient states that she was around family member on that tested positive for COVID and she started having some nasal congestion so she wanted to come in and get tested Related Data Home Medications ?Medication ?Instructions ?Recorded ?Confirmed diltiazem HCl 180 mg 180 mg PO DAILY 11/25/23 01/16/24 capsule,extended release 24 hr fluoxetine 20 mg capsule 20 mg PO DAILY 11/25/23 01/16/24 omeprazole 20 mg capsule,delayed 20 mg PO DAILY 11/25/23 01/16/24 release etonogestrel 68 mg subdermal 1 implant subdermal DIRECTED 01/05/24 01/16/24 implant (Nexplanon) Previous Rx's ?Medication ?Instructions ?Recorded blood pressure monitor #1 ea 10/01/23 cariprazine 1.5 mg capsule 1.5 mg PO DAILY #30 caps 12/29/23 (Vraylar) amitriptyline 10 mg tablet 20 - 40 mg (2 - 4 x 10 mg) PO QHS 01/14/24 PRN sleep #60 tabs fluoxetine 10 mg capsule 10 mg PO DAILY #30 caps 01/14/24 methocarbamol 500 mg tablet 500 mg PO TID #90 tabs 01/16/24 Allergies Allergy/AdvReac Type Severity Reaction Status Date / Time No Known Allergies Allergy Verified 01/14/24 13:08 Worker's Comp Is this a Worker's Comp case?: No [facility] Disclaimer: The information contained in this section may have been updated after the patient was seen, as this information can be updated by other users. Medical History Breast mass, right SCIWORA (spinal cord injury without radiographic abnormality) Cervical radiculopathy Seizure Dehydration Influenza Anxiety and depression History of gastroesophageal reflux (GERD) Hyperthyroidism Reactive airway disease with acute exacerbation SVT (supraventricular tachycardia) Palpitations Surgical History History of loop recorder History of esophagogastroduodenoscopy (EGD) Family History Other Cancer Heart disease Seizures Social History (Updated 01/16/24 @ 14:34 by Ashleigh Mchugh APRN) Smoking Status: Former smoker tobacco type: e-cigarettes second hand exposure: No alcohol intake: never substance use type: denies use current occupational status: other Travel in the last 8 weeks: None household members: significant other housing: house caffeine: Yes ROS Obtained: Yes All systems reviewed & no additional complaints except as documented and Yes Systems reviewed as appropriate & no additional complaints except as documented Constitutional Constitutional: Reports system reviewed and no additional complaints, except as documented and Reports as per HPI ENT Ears, Nose, Mouth, and Throat: Reports system reviewed and no additional complaints, except as documented, Reports as per HPI and Reports nasal congestion Cardiovascular Cardiovascular: Reports system reviewed and no additional complaints, except as documented and Reports as per HPI Respiratory Respiratory: Reports system reviewed and no additional complaints, except as documented and Reports as per HPI Gastrointestinal Gastrointestingal: Reports system reviewed and no additional complaints, except as documented and as per HPI Physical Exam General General appearance: alert and in no apparent distress ENT ENT exam: Present normal exam, normal oropharynx, mucous membranes moist and TM's normal bilaterally Respiratory Respiratory exam: Present normal lung sounds bilaterally; Absent respiratory distress or wheezes Cardiovascular Cardiovascular exam: Present regular rate, normal rhythm and normal heart sounds Neurological Exam Neurological exam: Present alert, oriented X3 and normal gait Medical Decision Making Medical Records Screening: Per USPSTF and CDC recommendations, given the prevalence of disease in our region, it is our hospital?s policy to screen for HIV and viral Hepatitis for all patients aged 18 and over and those with ongoing risk factors. Colt Inquiry Pt receiving controlled substance: No Colt was queried for this patient: No Vital Signs: 01/27/24 10:21 Temperature 98.6 F Temperature Source Oral Pulse Rate [Right Radial] 83 Respiratory Rate 18 Blood Pressure [Left Arm] 101/81 L Blood Pressure Mean [Left Arm] 87 02 Sat by Pulse Oximetry 98 Orders (Tests/Meds): ORDERS Category Date Time Status Covid-19 Nasal PCR ([facility]) Routine Lab 01/27/24 09:54 Received
[2024-01-27 10:28] VITALS: BP 101/81; PULSE 83; RESP 18; TEMP 37
== END 2024-01-27 10:36 | disposition home or self-care (01) ==
PROVIDERS: Emergency Provider Nurse Practitioner; PCP Internal Medicine
DX: Z20.822 Contact with and (suspected) exposure to COVID-19 (principal)
CPT/HCPCS: 87635; 99212; G0381

== ENCOUNTER 2024-02-13 13:00 | Outpatient (POV) | payer MEDICARE, OTHER, SELFPAY ==
[2024-02-13 13:40] VITALS: BP 129/75; PULSE 111; RESP 16; O2SAT 99; BMI 20.5
--- NOTE | 2024-02-13 13:48 | EXP.PAIN.SOA ---
[facility] Disclaimer: The information contained in this section may have been updated after the patient was seen, as this information can be updated by other users. Medical History Breast mass, right SCIWORA (spinal cord injury without radiographic abnormality) Cervical radiculopathy Seizure Dehydration Influenza Anxiety and depression History of gastroesophageal reflux (GERD) Hyperthyroidism Reactive airway disease with acute exacerbation SVT (supraventricular tachycardia) Palpitations Surgical History History of loop recorder History of esophagogastroduodenoscopy (EGD) Family History Other Cancer Heart disease Seizures Social History Smoking Status: Former smoker tobacco type: e-cigarettes second hand exposure: No alcohol intake: never substance use type: denies use current occupational status: other Travel in the last 8 weeks: None household members: significant other housing: house caffeine: Yes PM Subjective & Objective Subjective Subjective:: Patient is a pleasant 23-year-old female who presents today for follow-up. She does rate her pain today a 9 out of 10. She denies any new injuries or trauma. Patient states that the compounded cream and the muscle relaxer just do not seem to be working as well as they were originally. Patient does have a significant heart history. Patient is prescribed fluoxetine 30 mg daily from her PCP and states that this is made no additional improvement. Patient is requesting if we can do gabapentin. Her Colt has been reviewed and is appropriate. Review of Systems: General: No recent weight changes, no fever, no sleep disturbances Respiratory: No cough, no shortness of air, no recurring pulmonary infections Cardiovascular/peripheral vascular: No chest pain, no palpitations, no edema, no shortness of breath Gastrointestinal: No new onset incontinence, normal bowel movements reported Genitourinary: No new onset incontinence Musculoskeletal: Low back pain Psychiatric: [Normal mood/affect] Neurological: [Denies weakness in extremities], [denies balance issues] Pain at rest (0-10 scale): 9 Objective Objective:: Physical Exam: General: Alert and oriented x3, no acute distress, pleasant and cooperative Lungs: Respirations even and unlabored, symmetrical chest expansion Eyes: PERRL Musculoskeletal: Flexion and extension of lumbar spine within normal limits Neurological: Speech clear, no gross sensory deficit Has patient had previous pain injection?: No Conservative treatment options previously tried: Home exercise plan Length of treatment: Longer than 12-week Meds Home Medications and Allergies Home Medications ?Medication ?Instructions ?Recorded ?Confirmed ?Type blood pressure monitor #1 ea 10/01/23 02/13/24 Rx diltiazem HCl 180 mg 180 mg PO DAILY 11/25/23 02/13/24 History capsule,extended release 24 hr fluoxetine 20 mg capsule 20 mg PO DAILY 11/25/23 02/13/24 History omeprazole 20 mg capsule,delayed 20 mg PO DAILY 11/25/23 02/13/24 History release etonogestrel 68 mg subdermal 1 implant subdermal DIRECTED 01/05/24 02/13/24 History implant (Nexplanon) fluoxetine 10 mg capsule 10 mg PO DAILY #30 caps 01/14/24 02/13/24 Rx cariprazine 1.5 mg capsule 1.5 mg PO DAILY #90 caps 02/09/24 02/13/24 Rx (Vraylar) mirtazapine 15 mg tablet (Remeron) 7.5 - 15 mg (0.5 - 1 x 15 mg) PO 02/09/24 02/13/24 Rx DAILY #30 tabs methocarbamol 500 mg tablet See Rx Instructions .Route 02/13/24 02/13/24 Rx .COMPLEX #90 tabs New Prescriptions to Start Prescriptions: Allergies Allergy/AdvReac Type Severity Reaction Status Date / Time No Known Allergies Allergy Verified 02/09/24 11:01 Assessment and Plan *Assessment and plan (1) Low back pain: Status: Acute Qualifiers: Chronicity: acute Back pain laterality: bilateral Sciatica presence: unspecified whether sciatica present Qualified Code(s): M54.50 - Low back pain, unspecified Category: Medical Code(s): M54.50 - Low back pain, unspecified Plan I did discuss at length with the patient that unfortunately we would not be able to prescribe gabapentin. Patient had no significant findings in her thoracic or lumbar spine. Patient was also counseled that unfortunately due to her heart history we cannot do any anti-inflammatories and that it is recommended to stay with acetaminophen products. Patient had just had her muscle relaxers refilled this morning before her appointment and I did prevocational/rehabilitation counselor her that she can take 1-1/2 tablets to make methocarbamol 750 mg and see if the increased dosage does help. Patient acknowledges understanding agrees with plan of care. I did also discuss with the patient that we would be able to offer additional injections however she states that she has trouble getting her insurance to approve this and that even if we did see if they would approve it at the facility in [place] that then she has transportation issues. Patient did also have elevated heart rate during today's visit. Patient states this is nothing new and that she does also make mention that she does drink red bull on a regular basis. Patient will return to clinic in 1 month for reevaluation of symptoms and plan of care. Patient has been instructed to contact the clinic with any concerns before the next appointment. Dr. Quach has reviewed this note and agrees with this plan of care. This note was dictated using voice recognition software and make contain errors or omissions. All injections are used with Lidocaine, Bupivacaine and Depo Medrol. Occasionally urine drug screen is needed to verify patient's compliance with our office pain contract. This is ordered based off specific treatments related to chronic pain with the potential to abuse certain medications.
== END 2024-02-13 23:59 | disposition home or self-care (01) ==
LOC: SC.PAIN 13:01
PROVIDERS: PCP Internal Medicine; Visit Provider Nurse Practitioner Family
DX: M54.50 Low back pain, unspecified (principal)
CPT/HCPCS: 99212; G0463

== ENCOUNTER 2024-03-01 21:56 | Emergency (ER) | payer MEDICARE, OTHER, SELFPAY ==
[2024-03-01] MEDS: MILK OF MAGNESIA 30ML UDC 30 ML PO (22:08)
[2024-03-01 22:09] VITALS: BP 127/86; PULSE 113; RESP 16; TEMP 36.8; O2SAT 97; BMI 22.6
[2024-03-01 22:27] LABS: Urine Pregnancy, HCG Qual. Negative (Negative)
--- NOTE | 2024-03-01 22:27 | HMH.EDGENADL ---
Discharge Plan Disposition Patient Disposition: Home, Self-Care Prescriptions Prescriptions: No Action fluoxetine 10 mg capsule 10 mg PO DAILY Qty: 30 2RF Rx Instructions: Take with the Fluoxetine 20 mg daily. amitriptyline 10 mg tablet 10 mg PO HS mirtazapine [Remeron] 15 mg tablet 7.5 - 15 mg PO DAILY Qty: 30 2RF Vraylar 1.5 mg capsule 1.5 mg PO DAILY Qty: 90 0RF Rx Instructions: Dx: F33.0 magnesium citrate [Citrate of Magnesia] Solution 296 ml PO DAILY PRN (Reason: constipation) Qty: 296 1RF Rx Instructions: May take 1 dose today, 1 dose tomorrow docusate sodium [Colace] 100 mg capsule 100 mg PO DAILY Qty: 30 0RF (DME) blood pressure monitor Kit See Rx Instructions .ROUTE .MEDSUPPLY Qty: 1 0RF Rx Instructions: As directed Nexplanon 68 mg implant 1 implant subdermal DIRECTED methocarbamol 500 mg tablet See Rx Instructions .ROUTE .COMPLEX Qty: 90 1RF Dose Instruction: TAKE ONE TABLET BY MOUTH THREE TIMES DAILY Rx Instructions: TAKE ONE TABLET BY MOUTH THREE TIMES DAILY diltiazem HCl 180 mg capsule,extended release 24hr 180 mg PO DAILY Qty: 30 5RF omeprazole 20 mg capsule,delayed release(DR/EC) 20 mg PO DAILY Patient Comments: TAKE ONE CAPSULE BY MOUTH EVERY DAY fluoxetine 20 mg capsule 20 mg PO DAILY Patient Comments: TAKE ONE CAPSULE BY MOUTH EVERY DAY Referrals Follow up/Referrals: Blade Tang DO [Primary Care Provider] - See instructions Activity Restrictions/Add. Instructions Additional Instructions/Restrictions: Call your family doctor to establish care for this visit to the emergency department and schedule follow-up within 48 hours to ensure improvement. Bowel cleanout sheet as discussed and provided. Clinical Impressions Clinical Impression: Constipation Instructions Patient Instructions: DI for Acute Abdominal Pain Print Language Print Language: Arabic Discharge ED Provider: Galdino Pettit General Adult HPI General Chief complaint: Abdominal Pain Stated complaint: no bowel movement for 5 days Time Seen by Provider: 03/01/24 22:04 Mode of Arrival: Ambulatory Source of Information: Patient Limitations: No Limitations Description of Symptoms (Recalled from ER Triage Doc. by RN): pt reports no bowel movement for 5 days. pt reports she has taken miralax and chocolate laxatives. pt tried a supposotory 1 hour ago without sucess. pt reports a hx of constipation History of Present Illness HPI narrative: Please note that above description of symptoms, in this electronic medical record under categorization of recalled from ER triage doctor by RN are reflective of an initial nursing assessment, however, is not reflective of my full history and physical exam that was personally taken and clarified. Consequentially, this preceding description of symptoms, which may include the patient's categorized chief complaint in the EMR, do not reflect my personal clinical impression, and the ultimate description of history of present illness and patient stated complaints should be deferred to this section of the note. Unless stated otherwise or congruent with this section of the note, additional signs, symptoms, or incongruence should be interpreted as inaccurate with my clinical impression. Related Data Home Medications ?Medication ?Instructions ?Recorded ?Confirmed fluoxetine 20 mg capsule 20 mg PO DAILY 11/25/23 03/04/24 omeprazole 20 mg capsule,delayed 20 mg PO DAILY 11/25/23 03/04/24 release etonogestrel 68 mg subdermal 1 implant subdermal DIRECTED 01/05/24 03/04/24 implant (Nexplanon) amitriptyline 10 mg tablet 10 mg PO HS 03/04/24 03/04/24 Previous Rx's ?Medication ?Instructions ?Recorded blood pressure monitor #1 ea 10/01/23 fluoxetine 10 mg capsule 10 mg PO DAILY #30 caps 01/14/24 cariprazine 1.5 mg capsule 1.5 mg PO DAILY #90 caps 02/09/24 (Vraylar) mirtazapine 15 mg tablet (Remeron) 7.5 - 15 mg (0.5 - 1 x 15 mg) PO 02/09/24 DAILY #30 tabs methocarbamol 500 mg tablet See Rx Instructions .Route 02/13/24 .COMPLEX #90 tabs diltiazem HCl 180 mg 180 mg PO DAILY #30 caps 02/16/24 capsule,extended release 24 hr docusate sodium 100 mg capsule 100 mg PO DAILY #30 caps 03/03/24 (Colace) magnesium citrate (Citrate of 296 ml PO DAILY PRN constipation 03/03/24 Magnesia oral) #296 mL Allergies Allergy/AdvReac Type Severity Reaction Status Date / Time No Known Allergies Allergy Verified 03/04/24 13:00 [facility] Disclaimer: The information contained in this section may have been updated after the patient was seen, as this information can be updated by other users. Medical History Encounter for insertion of subdermal contraceptive Encounter for loop recorder at end of battery life UTI (urinary tract infection) Pharyngitis Acute viral syndrome Encounter for laboratory testing for COVID-19 virus Breast mass, right SCIWORA (spinal cord injury without radiographic abnormality) Cervical radiculopathy Seizure Dehydration Influenza Anxiety and depression History of gastroesophageal reflux (GERD) Hyperthyroidism Reactive airway disease with acute exacerbation SVT (supraventricular tachycardia) Palpitations Surgical History History of loop recorder History of esophagogastroduodenoscopy (EGD) Family History Other Cancer Heart disease Seizures Social History (Updated 03/04/24 @ 13:05 by AMY Tripathi) Smoking Status: Current every day smoker tobacco type: e-cigarettes second hand exposure: No alcohol intake: never substance use type: other details: [employer] current occupational status: unemployed and disabled Travel in the last 8 weeks: None household members: significant other housing: house caffeine: Yes Other Medical History Have you received the Flu Vaccine for this season: No Have you received the Pneumonia Vaccine: No ROS Obtained: Yes All systems reviewed & no additional complaints except as documented Physical Exam General General appearance: alert Head Head exam: atraumatic and normocephalic Eye Eye exam: Present normal appearance, PERRL and EOMI Neck Neck exam: Present normal inspection, full ROM and trachea midline Respiratory Respiratory exam: Absent respiratory distress, wheezes, stridor, accessory muscle use or prolonged expiratory phase Cardiovascular Cardiovascular exam: Present other (Pulses equal symmetric in upper and lower extremities) Abdominal Exam Abdominal exam: Present soft; Absent distention, tenderness or pulsatile mass Extremities Exam Extremities exam: Absent edema Neurological Exam Neurological exam: Present alert, oriented X3 and CN II-XII intact; Absent motor sensory deficit Skin Skin exam: Present warm and dry; Absent diaphoresis or erythema Medical Decision Making Medical Records Medical records reviewed: Yes I reviewed the patient's medical records. Screening: Per USPSTF and CDC recommendations, given the prevalence of disease in our region, it is our hospital?s policy to screen for HIV and viral Hepatitis for all patients aged 18 and over and those with ongoing risk factors. Colt Inquiry Pt receiving controlled substance: No Colt was queried for this patient: No Vital Signs: 03/01/24 22:09 03/01/24 22:51 Temperature 98.2 F 98.2 F Temperature Source Oral Pulse Rate 109 H Pulse Rate [Right] 113 H Respiratory Rate 16 14 Blood Pressure 126/77 Blood Pressure [Right Arm] 127/86 Blood Pressure Mean [Right Arm] 99 02 Sat by Pulse Oximetry 97 Oxygen Delivery Method Room Air Room Air Lab Data Lab Results 03/01/24 22:12: Urine HCG, Qual Negative 03/01/24 22:42: Urine Color Yellow, Urine Appearance Clear, Urine pH 6.0, Ur Specific [place] >= 1.030, Urine Protein Negative, Urine Glucose (UA) Negative, Urine Ketones Negative, Urine Blood Negative, Urine Nitrate Negative, Urine Bilirubin Negative, Urine Urobilinogen 0.2, Ur Leukocyte Esterase Negative, Urine RBC 3-5, Urine WBC 5-10, Ur Squamous Epith Cells 10-20, Urine Bacteria 1+ Orders (Tests/Meds): ED MEDICATIONS Discontinued Medications Generic Name Dose Route Start Last Admin Trade Name Freq PRN Reason Stop Dose Admin Magnesium Hydroxide 30 ml 03/01/24 22:05 03/01/24 22:08 Milk Of Magnesia 30ml Udc PO 03/01/24 22:06 30 ml ONCE ONE Administration ORDERS Category Date Time Status UA [Urinalysis and Microscopic] Stat Lab 03/01/24 22:42 Completed Urine , HCG Qual. Stat Lab 03/01/24 22:12 Completed Medical Decision Narrative: Is a 23-year-old female presenting with constipation. She states that she has not had a meaningful bowel movement in about 5 days. States that she is still passing gas, having mild lower abdominal and rectal pain. No blood per rectum. No vomiting, fevers, chills. She states last time this happened she was and would like to be checked for today. History obtained the patient. On arrival, she is very well-appearing. Walking into the emergency department without issue. Abdominal exam without guarding, rebound, rigidity, or any abnormalities. She is very incredibly clinically well. Laughing, jovial. Patient given 30 mL of magnesium citrate and a bowel cleanout sheet. Urine negative. UA negative. Because patient at baseline without signs or symptoms of clinical decompensation, deemed appropriate for discharge. Results were relayed to patient who voiced understanding and were agreeable to outpatient management and follow up. I discussed my clinical impression with patient and answered all questions. At this time, the evidence for any other entities in the differential is insufficient to warrant any further testing or ED observation. This was explained as well. Advisory was given that persistent or worsening symptoms require further evaluation. I confirmed the understanding of this discussion. Sustain Engineer disclaimer Much of this encounter note is an electronic console operator spoken language to printed text. Electronic console operator of the spoken language may permit errors. Although I have reviewed the note, some errors may still exist. Critical Care Critical Care Time Critical Care Time: No
[2024-03-01 22:51] VITALS: BP 126/77; PULSE 109; RESP 14; TEMP 36.8; O2SAT 97
[2024-03-01 23:47] LABS: Microscopic, Urine URINE MICROSCOPIC (MICROSCOPIC)
[2024-03-01 23:48] LABS: Appearance,Urine CLEAR (Clear); Bilirubin,Urine Negative (Negative); Blood, Urine Negative (Negative); Color,Urine YELLOW (Yellow); Glucose,Urine (UA) Negative (Negative); Ketones,Urine Negative (Negative); Leukocyte Esterase,Urine Negative (Negative); Nitrate,Urine Negative (Negative); Protein,Urine Negative (Negative); Specific Gravity, Urine >= 1.030 (1.005-1.030); Urobilinogen,Urine 0.2 EU/dl (0.2)
[2024-03-02 00:10] LABS: Bacteria,Urine 1+ /lpf
== END 2024-03-01 22:52 | disposition home or self-care (01) ==
PROVIDERS: Emergency Provider Emergency Medicine; PCP Internal Medicine
DX: K59.00 Constipation, unspecified (principal); R10.9 Unspecified abdominal pain
CPT/HCPCS: 81001; 81025; 99283

== ENCOUNTER 2024-03-12 12:32 | Outpatient (POV) | payer MEDICARE, OTHER, SELFPAY ==
[2024-03-12 13:21] VITALS: BP 130/74; PULSE 132; RESP 16; O2SAT 98; BMI 22.3
--- NOTE | 2024-03-12 13:44 | A.OFFVIS_ITS ---
[facility] Disclaimer: The information contained in this section may have been updated after the patient was seen, as this information can be updated by other users. Medical History Encounter for insertion of subdermal contraceptive Encounter for loop recorder at end of battery life UTI (urinary tract infection) Pharyngitis Acute viral syndrome Encounter for laboratory testing for COVID-19 virus Breast mass, right SCIWORA (spinal cord injury without radiographic abnormality) Cervical radiculopathy Seizure Dehydration Influenza Anxiety and depression History of gastroesophageal reflux (GERD) Hyperthyroidism Reactive airway disease with acute exacerbation SVT (supraventricular tachycardia) Palpitations Surgical History History of loop recorder History of esophagogastroduodenoscopy (EGD) Family History Other Cancer Heart disease Seizures Social History Smoking Status: Current every day smoker tobacco type: e-cigarettes second hand exposure: No alcohol intake: never substance use type: other details: [employer] current occupational status: other Travel in the last 8 weeks: None household members: significant other housing: house caffeine: Yes PM Subjective & Objective Subjective Subjective:: Patient is a pleasant 23-year-old female who presents today for worsening pain. She does rate her pain today a 10 out of 10. She states from her last visit that she has been experience a lot more pain in her lower back and did notice a significant area of tenderness that is swollen. Patient states that she has not had any falls or injuries and is not really sure when it actually started to swell. She describes it as a burning sensation. Patient is currently managed with fluoxetine 30 mg daily from her PCP and methocarbamol 750 mg 3 times daily from our office. She states that she is not really had any side effects but does make mention that there was a period that she went 7 days without having a bowel movement. Patient does state that she is not good about drinking fluids and has picked up some MiraLAX. Her Colt has been reviewed and is appropriate. Review of Systems: General: No recent weight changes, no fever, no sleep disturbances Respiratory: No cough, no shortness of air, no recurring pulmonary infections Cardiovascular/peripheral vascular: No chest pain, no palpitations, no edema, no shortness of breath Gastrointestinal: No new onset incontinence, normal bowel movements reported Genitourinary: No new onset incontinence Musculoskeletal: Low back pain Psychiatric: [Normal mood/affect] Neurological: [Denies weakness in extremities], [denies balance issues] Pain at rest (0-10 scale): 10 Objective Objective:: Physical Exam: General: Alert and oriented x3, no acute distress, pleasant and cooperative Lungs: Respirations even and unlabored, symmetrical chest expansion Eyes: PERRL Musculoskeletal: Flexion and extension of lumbar [spine] somewhat guarded secondary to pain, point tenderness along the lower lumbar spine Neurological: Speech clear, no gross sensory deficit Skin: Lower lumbar spine does have a large area of swelling approximately 3 inches x 2 inches Has patient had previous pain injection?: No Conservative treatment options previously tried: Home exercise plan Length of treatment: Longer than 12 weeks Meds Home Medications and Allergies Home Medications ?Medication ?Instructions ?Recorded ?Confirmed ?Type blood pressure monitor #1 ea 10/01/23 03/12/24 Rx fluoxetine 20 mg capsule 20 mg PO DAILY 11/25/23 03/12/24 History omeprazole 20 mg capsule,delayed 20 mg PO DAILY 11/25/23 03/12/24 History release etonogestrel 68 mg subdermal 1 implant subdermal DIRECTED 01/05/24 03/12/24 History implant (Nexplanon) fluoxetine 10 mg capsule 10 mg PO DAILY #30 caps 01/14/24 03/12/24 Rx cariprazine 1.5 mg capsule 1.5 mg PO DAILY #90 caps 02/09/24 03/12/24 Rx (Vraylar) mirtazapine 15 mg tablet (Remeron) 7.5 - 15 mg (0.5 - 1 x 15 mg) PO 02/09/24 03/12/24 Rx DAILY #30 tabs methocarbamol 500 mg tablet See Rx Instructions .Route 02/13/24 03/12/24 Rx .COMPLEX #90 tabs diltiazem HCl 180 mg 180 mg PO DAILY #30 caps 02/16/24 03/12/24 Rx capsule,extended release 24 hr docusate sodium 100 mg capsule 100 mg PO DAILY #30 caps 03/03/24 03/12/24 Rx (Colace) amitriptyline 10 mg tablet 10 mg PO HS 03/04/24 03/12/24 History lidocaine 5 % topical cream 1 applic topical BID PRN pain #30 03/11/24 03/12/24 Rx (RectiCare) grams hydrocortisone 2.5 % topical cream 1 applic MO QD-BID PRN hemorrhoids 03/12/24 03/12/24 Rx with perineal applicator #30 grams (Proctozone-HC) New Prescriptions to Start Prescriptions: Allergies Allergy/AdvReac Type Severity Reaction Status Date / Time No Known Allergies Allergy Verified 03/11/24 10:20 Assessment and Plan *Assessment and plan (1) Mass of soft tissue: Status: Acute Category: Medical Code(s): M79.89 - Other specified soft tissue disorders Plan I did discuss with the patient due to the area of swelling and the significant size I would like to order an ultrasound to confirm whether or not this could be possibly a lipoma or cyst. Patient agrees with this plan of care. We will submit for this imaging. Patient was counseled regarding making sure that she is drinking plenty of fluid. Patient's heart rate was significantly increased at today's visit which she does have a history of. Patient was counseled to try and minimize her use of energy drinks due to her history of tachycardia. She does state that she is aware and she is trying to do better regarding this. Patient was counseled to patient will return to clinic in 2 weeks for reevaluation of symptoms and plan of care. Patient has been instructed to contact the clinic with any concerns before the next appointment. Dr. Quach has reviewed this note and agrees with this plan of care. This note was dictated using voice recognition software and make contain errors or omissions. All injections are used with Lidocaine, Bupivacaine and Depo Medrol. Occasionally urine drug screen is needed to verify patient's compliance with our office pain contract. This is ordered based off specific treatments related to chronic pain with the potential to abuse certain medications.
== END 2024-03-12 23:59 | disposition home or self-care (01) ==
LOC: SC.PAIN 12:33
PROVIDERS: PCP Internal Medicine; Visit Provider Nurse Practitioner Family
DX: M79.89 Other specified soft tissue disorders (principal); U07.0 Vaping-related disorder
CPT/HCPCS: 99212; G0463

== ENCOUNTER 2024-03-18 12:59 | Outpatient (CLI) | payer MEDICARE, OTHER, SELFPAY ==
--- NOTE | 2024-03-18 13:02 | US_ITS ---
FINAL REPORT CLINICAL HISTORY: PALP AREA ON LOWER BACK FINDINGS: Limited sonographic images were obtained of the soft tissues in the region of palpable abnormality in the lower mid back. No mass or cyst identified. IMPRESSION: Unremarkable exam. Reviewed, Interpreted and Dictated by Leopoldo Maguire MD Transcribed by Radha Gonzalez Authenticated and . [facility]
== END 2024-03-18 23:59 | disposition home or self-care (01) ==
LOC: RAD 13:00
PROVIDERS: PCP Nurse Practitioner Family; Visit Provider Nurse Practitioner Family
DX: M79.89 Other specified soft tissue disorders (principal)
CPT/HCPCS: 76604

== ENCOUNTER 2024-03-31 13:41 | Outpatient (POV) | payer MEDICARE, OTHER, SELFPAY ==
[2024-03-31 14:18] VITALS: BP 135/82; PULSE 114; RESP 16; O2SAT 97; BMI 22.4
--- NOTE | 2024-03-31 14:18 | EXP.PAIN.SOA ---
[facility] Disclaimer: The information contained in this section may have been updated after the patient was seen, as this information can be updated by other users. Medical History Encounter for insertion of subdermal contraceptive Encounter for loop recorder at end of battery life UTI (urinary tract infection) Pharyngitis Acute viral syndrome Encounter for laboratory testing for COVID-19 virus Breast mass, right SCIWORA (spinal cord injury without radiographic abnormality) Cervical radiculopathy Seizure Dehydration Influenza Anxiety and depression History of gastroesophageal reflux (GERD) Hyperthyroidism Reactive airway disease with acute exacerbation SVT (supraventricular tachycardia) Palpitations Surgical History History of loop recorder History of esophagogastroduodenoscopy (EGD) Family History Other Cancer Heart disease Seizures Social History Smoking Status: Current every day smoker tobacco type: e-cigarettes second hand exposure: No alcohol intake: never substance use type: other details: [employer] current occupational status: other Travel in the last 8 weeks: None household members: significant other housing: house caffeine: Yes Have you lived/traveled outside [place] in past 30 days?: No Contact w/someone who lives/traveled outside [place] past 30 days?: No Exposure to someone with infectious disease in past 14 days?: No Do you have a fever (greater than 100.4 F or 38 C)?: No Have you tested positive for COVID-19: No Exposed to someone with COVID-19 in past 14 days?: No Do you have a sore throat?: No Do you have a cough?: No Do you have shortness of breath?: No Do you have a headache?: No Do you have any weakness?: No Are you experiencing any nausea/vomitting?: No Do you have any diarrhea?: No Are you experiencing any unusual bleeding?: No Do you have any muscle aches/pain?: No Do you have any abdominal pain?: No Are you experiencing loss of taste or smell?: No PM Subjective & Objective Subjective Subjective:: Patient is a pleasant 23-year-old female who presents today for follow-up of lumbar ultrasound. Today she rates her pain a 8 out of 10. She denies any new trauma or injury. She does state that she still has chronic low back pain that is worse with any type of increased activity. Patient does state the knot still at her low back is still bothersome as well. Patient is currently managed with fluoxetine daily from her primary care and methocarbamol 750 mg 3 times a day from our office. She denies any side effects. Her Colt has been reviewed and is appropriate. Review of Systems: General: No recent weight changes, no fever, no sleep disturbances Respiratory: No cough, no shortness of air, no recurring pulmonary infections Cardiovascular/peripheral vascular: No chest pain, no palpitations, no edema, no shortness of breath Gastrointestinal: No new onset incontinence, normal bowel movements reported Genitourinary: No new onset incontinence Musculoskeletal: Low back pain Psychiatric: [Normal mood/affect] Neurological: [Denies weakness in extremities], [denies balance issues] Pain at rest (0-10 scale): 8 Objective Objective:: Physical Exam: General: Alert and oriented x3, no acute distress, pleasant and cooperative Lungs: Respirations even and unlabored, symmetrical chest expansion Eyes: PERRL Musculoskeletal: Flexion and extension of lumbar lower lumbar spine point tenderness along [spine] somewhat guarded secondary to pain, [antalgic gait noted] Neurological: Speech clear, no gross sensory deficit Has patient had previous pain injection?: No Conservative treatment options previously tried: Home exercise plan Length of treatment: Longer than 12 weeks Meds Home Medications and Allergies Home Medications ?Medication ?Instructions ?Recorded ?Confirmed ?Type blood pressure monitor #1 ea 10/01/23 03/31/24 Rx omeprazole 20 mg capsule,delayed 20 mg PO DAILY 11/25/23 03/31/24 History release etonogestrel 68 mg subdermal 1 implant subdermal DIRECTED 01/05/24 03/31/24 History implant (Nexplanon) mirtazapine 15 mg tablet (Remeron) 7.5 - 15 mg (0.5 - 1 x 15 mg) PO 02/09/24 03/31/24 Rx DAILY #30 tabs methocarbamol 500 mg tablet See Rx Instructions .Route 02/13/24 03/31/24 Rx .COMPLEX #90 tabs diltiazem HCl 180 mg 180 mg PO DAILY #30 caps 02/16/24 03/31/24 Rx capsule,extended release 24 hr hydrocortisone 2.5 % topical cream 1 applic [place] QD-BID PRN hemorrhoids 03/12/24 03/31/24 Rx with perineal applicator #30 grams (Proctozone-HC) cariprazine 1.5 mg capsule 1.5 mg PO DAILY #90 caps 03/15/24 03/31/24 Rx (Vraylar) desvenlafaxine succinate 25 mg 25 mg PO DAILY #30 tabs 03/15/24 03/31/24 Rx tablet,extended release 24 hr (Pristiq) levomefolate 15 mg-algal oil 1 cap PO DAILY #30 caps 03/15/24 03/31/24 Rx 90.314 mg capsule (L-Methylfolate Forte) doxepin 10 mg capsule 10 mg PO HS PRN sleep #30 caps 03/29/24 03/31/24 Rx New Prescriptions to Start Prescriptions: Allergies Allergy/AdvReac Type Severity Reaction Status Date / Time No Known Allergies Allergy Verified 03/31/24 13:14 Assessment and Plan *Assessment and plan (1) Low back pain: Status: Acute Qualifiers: Chronicity: acute Back pain laterality: bilateral Sciatica presence: unspecified whether sciatica present Qualified Code(s): M54.50 - Low back pain, unspecified Category: Medical Code(s): M54.50 - Low back pain, unspecified Plan Patient continues to experience significant pain throughout her low back. I did review over the ultrasound findings with no acute issues. I did discuss with the patient that she has not had any updated lumbar imaging since 2022 and I would like to order some of this. I will order an x-ray and MRI without contrast to follow-up of her lumbar spine. Patient was also counseled that I would like to start her on a new medication however it was just released by the FDA. We did reach out to clinic pharmacy and they do not have the Journavx medication at this time and did state that they are assuming they will have it in a few months. We will continue to monitor this and when this medication is made available send in a prescription of 50 mg twice a day with a 2-week dose. Patient will follow-up in 1 month following her imaging. Patient has been instructed to contact the clinic with any concerns before the next appointment. Dr. Quach has reviewed this note and agrees with this plan of care. This note was dictated using voice recognition software and make contain errors or omissions. All injections are used with Lidocaine, Bupivacaine and Depo Medrol. Occasionally urine drug screen is needed to verify patient's compliance with our office pain contract. This is ordered based off specific treatments related to chronic pain with the potential to abuse certain medications.
== END 2024-03-31 23:59 | disposition home or self-care (01) ==
PROVIDERS: PCP Internal Medicine; Visit Provider Nurse Practitioner Family
DX: M54.50 Low back pain, unspecified (principal); U07.0 Vaping-related disorder
CPT/HCPCS: 99212; G0463

== ENCOUNTER 2024-09-24 17:27 | Emergency (ER) | payer MEDICARE, OTHER, SELFPAY ==
--- OUTSIDE RECORDS SUMMARY | 2023-11-04 10:00 | XMS_ITS | Encounter Summary ---
Author Organization [employer] ([place], [place], [place], [place]) Address [address] [place] [address] Care Team Providers Care Beauty Director Name Role Phone Edinson Aguirre MD Primary Care Provider [phone] Encounter Details Date Type Department Care Team (Late st Contact Info) Description 11/04/2023 10:00 AM EDT Hospital Encounter [facility] 5B Medical Telemetry [address] [place] [address] Riri Villarreal MD [address] [place] [address] [address] [place] [id number] Social History Tobacco Use Types Packs/Day Years Used Date Smoking Tobacco: Former Cigarettes Passive Smoke Exposure: Past Smokeless Tobacco: Never Alcohol Use Standard Drinks/Week Comments Never 0 (1 standard drink = 0.6 oz pur e alcohol) Food Insecurity Answer Date Recorded Food run out past 12 months Not on file 06/25 Food did not last past 12 months Not on file 07/17/2023 Employment Answer Date Recorded Help finding and keeping a job Not on file 0 07/17/2023 Family and Community Support Answer Aniceto e Recorded Help with Day to Day Activities Not on file 07/17/2023 Feeling Lonely or Isolated Not on file 07/16 Educational Attainment Answer Date Prashant rded Speak language other than Armenian at home Not on file 07/17/2023 Want help with school or training Not on file 07/17/2023 Substance Use Answer Date Recorded Used prescription meds for non-medical reasons N ot on file 07/17/2023 Used illegal drugs past 12 months Not on file 07/17/2023 Comments No Sex and Gender Information Value Date Recorded Sex Assigned at Not on file Legal Sex Female 1:14 PM CDT Gender Identity Not on file Sexual Orientation Not on file documented as of this encounter Plan of Treatment Not on file documented as of this encounter Visit Diagnoses Not on filedocumented in this encounter Care Teams Beauty Director Relationship Specialty Start Date End Date Edinson Aguirre MD PCP - General Infectious Disease 07/23/23 documented as of this encounter
--- OUTSIDE RECORDS SUMMARY | 2024-09-01 15:00 | XMS_ITS | Encounter Summary ---
Author Organization Healthcare Address [address] [place] [address] Care Team Providers Care Heavy Threader Name Role Phone Orville Spann MD Primary Care Provider [phone] Reason for Referral * Imaging (Routine) - Authorized Specialty Diagnoses / Procedures Referred By Jazz mckeon Referred To Contact Radiology Diagnoses Hyperthyroidism Pharyngoesophageal dysphagia Procedures US Head Neck Soft Tissue Jerrica Caicedo DO [address] [address] Phone: tel: fax: Referral ID Status Reason Start Date Expiration Date V isits Requested Visits Authorized [id number] Authorized 09/01/2024 03/03/2026 1 1 Reason for Visit * Reason Comments Hyperthyroidism Encounter Details Date Type Department Care Team (Late st Contact Info) Description 09/01/2024 3:00 PM EDT Office Visit [facility] Endocrinology [address] [place] [address] Jerrica Caicedo DO [address] [facility] [address] [place] [address] Hyperthyroidism (Primary Dx); Pharyngoesophageal dysphagia; [...] Info) Description 09/30/2024 1:15 PM EDT Appointment [facility] Ultrasound [address] [place] [address] Scheduled Orders Name Type Priority Associated Diagnoses Orde r Schedule US Head Neck Soft Tissue Imaging Routine Hyperthyroidism Pharyngoesophageal dysphagia Expected: 09/01/2024 (Approximate), Expires: 03/05/2026 documented as of this encounter Results * T4, free (09/01/2024 3:31 PM EDT) Free T4, Plasma 1.4 0.8 - 1.7 ng/dL 09/01/2024 7:10 PM EDT [facility] Blood Venous blood specimen / Unknown Venipuncture / Unknown 09/01/2024 3:31 PM EDT 09/01/2024 3:32 PM EDT Narrative [facility] - 09/01/2024 7:10 PM EDT Free T4 Trimester Specific Ranges 1st Trimester 0.9 - 1.50 ng/dL 2nd Trimester 0.7 - 1.40 ng/dL 3rd Trimester 0.7 - 1.24 ng/dL us Jerrica Caicedo DO LAB BLOOD ORDERABLES Final Result [facility] [address] [place] [address] * TSH Reflex FT4 (09/01/2024 3:31 PM EDT) Thyroid Stimulating Hormone, Plasma 0.52 0.40 - 4.20 uIU/mL 09/01/2024 7:10 PM EDT [facility] Blood Venous blood specimen / Unknown Venipuncture / Unknown 09/01/2024 3:31 PM EDT 09/01/2024 3:32 PM EDT Narrative [facility] - 09/01/2024 7:10 PM EDT Trimester Specific Ranges TSH ( IU/mL) 1st Trimester 0.1 - 3.0 2nd Trimester 0.19 - 4.06 3rd Trimester 0.3 - 3.7 us Jerrica Caicedo DO LAB BLOOD ORDERABLES Final Result [facility] [address] [place] [address] documented in this encounter Visit Diagnoses Diagnosis [...] documented as of this encounter Care Teams Heavy Threader Relationship Specialty Start Date End Date Orville Spann MD [address] [place] [address] PCP - General 07/07/20 documented as of this encounter
[2024-09-24 17:36] VITALS: BP 121/59; PULSE 65; RESP 16; TEMP 37.1; O2SAT 98; BMI 22.1
--- OUTSIDE RECORDS SUMMARY | 2024-09-24 17:47 | XMS_ITS | Referral Summary ---
Author Organization [employer] ([place], [place], [place], [place]) Address [address] [place] [address] Care Team Providers Care Digital Computer Systems Analyst Name Role Phone Edinson Aguirre MD Primary Care Provider [phone] Allergies No known active allergies Medications baclofen (LIORESAL) 10 MG tablet Take 1 tablet (10 mg total) by mouth 3 (three) times daily as needed (Spasms). 06/27/2023 Active dilTIAZem (CARDIZEM CD) 180 MG 24 hr capsule Take 1 capsule (180 mg total) by mouth daily. 09/09/2023 Active fLUoxetine (PROzac) 20 MG capsule Take 1 capsule (20 mg total) by mouth daily. 08/18/2023 Active nadoloL (CORGARD) 80 MG tablet Take 1 tablet (80 mg total) by mouth daily. 09/09/2023 Active omeprazole (PriLOSEC) 20 MG capsule Take 1 capsule (20 mg total) by mouth daily. 09/16/2023 Active amitriptyline (ELAVIL) 10 MG tablet Take 2 tablets (20 mg total) by mouth nightly. Active cariprazine (Vraylar) 1.5 mg capsule Take 1 capsule (1.5 mg total) by mouth daily. Active Active Problems Problem Noted Date Diagnosed Date Abnormal electroencephalogram (EEG) 11/19/2023 Nonepileptic episode 11/17/2023 Abnormal ECG 11/06/2023 Abnormal echocardiogram 11/06/2023 Acute bronchitis 11/06/2023 Bronchitis 11/06/2023 Atypical chest pain 11/06/2023 Acute neck pain 11/06/2023 Acute viral syndrome 11/06/2023 Back pain 11/06/2023 Low back pain 11/06/2023 Breakthrough bleeding 11/06/2023 Breast mass, right 11/06/2023 Burn of hand 11/06/2023 Cervical radiculopathy 11/06/2023 Conjunctivitis 11/06/2023 COVID-19 11/06/2023 Decreased appetite 11/06/2023 Depression 11/06/2023 Dizziness 11/06/2023 Encounter for insertion of subdermal contracepti ve 11/06/2023 Encounter for loop recorder at end of battery li fe 11/06/2023 Exposure to COVID-19 virus 11/06/2023 Facial laceration 11/06/2023 Fall 11/06/2023 Fatigue 11/06/2023 First in adolescent 16 years of age or older 11/06/2023 Gagging episode 11/06/2023 Generalized anxiety disorder 11/06/2023 Influenza 11/06/2023 Irregular menstruation 11/06/2023 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 Major depression, recurrent, chronic 11/06/2023 Near syncope 11/06/2023 Nicotine abuse 11/06/2023 Abdominal cramping 11/06/2023 Constipation in female 11/06/2023 11/06/2023 Reactive airway disease with acute exacerbation 11/06/2023 Sinoatrial billie reentrant tachycardia Syncope 11/06/2023 SVT (supraventricular tachycardia) 11/06/2023 Tachycardia 11/06/2023 Tobacco use 11/06/2023 UTI (urinary tract infection) 11/06/2023 Vomiting 11/06/2023 Seizure 06/19/2023 Sleep disturbance 04/01/2022 Weight loss 04/01/2022 Acute chest pain 12/04/2021 Anxiety 12/04/2021 Cold intolerance 12/04/2021 Dysphagia 12/04/2021 Hyperthyroidism 12/04/2021 Night sweats 12/04/2021 Other constipation 12/04/2021 Palpitations 12/04/2021 Tremor 12/04/2021 SVT (supraventricular tachycardia) 07/18/2017 Immunizations Name Administration Dates Next Due Dtap,nos 06/21/2005, 3,01/05/2002,10/19,2001 HPV Quadrivalent 09/24/2013 HPV-9 09/11/2017 Hep B / HiB 07/15/2002,2001 Hepatitis A 09/11/2017,09/24/2013 Hepatitis B 2001 HiB 2001 IPV 06/21/2005, 2,2001,08/06 Influenza Four-qiv Pf 12/11/2017 Influenza Three-tiv Non-pf 11/17/2014,01/17/2010 Influenza Three-tiv Pf 12/11/2017 MMR VACCINE (MMR II, PRIORIX) (IMM44) 06/21/2005 ,09/22/2002 Meningococcal (Menactra) Conjugate Im 09/11/2017 Meningococcal Mcv4, Unspecif ied Formulation 09/24/2013 Pneumococcal Conjugate 7-Valent 07/16/19 03,01/05/2002,2001,08/06 Tdap 09/24/2013 Varicella (VARIVAX) 09/24/2013,07/15/2002 Social History Tobacco Use Types Packs/Day Years Used Date Smoking Tobacco: Former Cigarettes Passive Smoke Exposure: Past Smokeless Tobacco: Never Tobacco Cessation:Counseling Given: Not Answered Alcohol Use Standard Drinks/Week Comments Never 0 [...] Date Prashant rded Speak language other than Vincentian at home Not on file 07/17/2023 Want [...] on file Sexual Orientation Not on file Last Filed Vital Signs Vital Sign Reading Time Taken Comments Blood Pressure 110/54 11/19/2023 6:15 AM EDT Pulse 76 11/19/2023 6:15 AM EDT Temperature 36.6 C (97.9 F) 11/19/2023 6:15 AM EDT Respiratory Rate 18 11/19/2023 6:15 AM EDT Oxygen Saturation 98% 11/19/2023 6:15 AM EDT Inhaled Oxygen Concentration - - Weight 51.3 kg (113 lb) 11/17/2023 11:59 AM EDT Height 165.1 cm (5' 5 ) 11/17/2023 11:59 AM EDT Body Mass Index 18.8 11/17/2023 11:59 AM EDT Plan of Treatment Not on file Insurance [facility] MEDICARE O [employer] [facility] Advance Directives For more information, please contact: [phone] * Full Code (Latest Code Status on File) Date Activated Date Inactivated Comments 11/17/2023 11:40 AM 11/19/2023 2:39 PM Care Teams Digital Computer Systems Analyst Relationship Specialty Start Date End Date Edinson Aguirre MD PCP - General Infectious Disease 07/23/23
--- OUTSIDE RECORDS SUMMARY | 2024-09-24 17:47 | XMS_ITS | Encounter Summary ---
Author Organization Healthcare Address [address] [place] [address] Care Team Providers Care Television Parts Tester Name Role Phone Orville Spann MD Primary Care Provider [phone] Encounter Details Date Type Department Care Team (Late st Contact Info) Description 09/02/2024 Results Follow-Up [facility] [address] [place] [address] Jerrica Caicedo, DO [address] [facility] [address] [place] [address] Social History Tobacco Use Types Packs/Day Years Used Date Smoking Tobacco: Every Day Cigarettes Last attempted to quit: 2020 Smokeless Tobacco: Never Alcohol Use Standard Drinks/Week Comments No 0 [...] as of this encounter Plan of Treatment Upcoming Encounters Date Type Department Care Team (Late st Contact Info) Description 09/30/2024 1:15 PM EDT Appointment [facility] Ultrasound [address] [place] [address] documented as of this encounter Visit Diagnoses Not on filedocumented in this encounter Additional Health Concerns Assessment Noted Time A fall risk assessment has been complete d for the patient 06/24/2023 8:05 AM EDT A Body Mass Index follow-up plan has been documented for the patient 09/02/2024 8:03 AM EDT documented as of this encounter Care Teams Television Parts Tester Relationship Specialty Start Date End Date Orville Spann MD [address] [place] [address] PCP - General 07/07/20 documented as of this encounter
--- OUTSIDE RECORDS SUMMARY | 2024-09-24 17:47 | XMS_ITS | Clinical Summary ---
Author Organization [facility] Address [address] [place] [id number] Phone [email or web address] Care Team Providers Care Body Component Engineer Name Role Phone Provider, No Primary Care Provider Unavailabl e Allergies No known active allergies Medications No known medications Active Problems No known active problems Social History Tobacco Use Types Packs/Day Years Used Date Smoking Tobacco: Never Smokeless Tobacco: Current Comments:Vape Comments Unknown Sex and Gender Information Value Date Recorded Sex Assigned at Not on file Legal Sex Female 1:24 PM CDT Gender Identity Not on file Sexual Orientation Not on file Last Filed Vital Signs Vital Sign Reading Time Taken Comments Blood Pressure 115/72 05/11/2020 2:05 PM EDT Pulse 96 05/11/2020 2:05 PM EDT Temperature - - Respiratory Rate 18 05/11/2020 2:05 PM EDT Oxygen Saturation 96% 05/11/2020 2:05 PM EDT Inhaled Oxygen Concentration - - Weight - - Height - - Body Mass Index - - Plan of Treatment Health Maintenance Due Date Last Done Comments Dental Cleaning/Exam 2001 HPV Immunization (1 - 3-dose series) 2016 Cervical Cancer Screening 2017 Men B Immunization (1 of 2 - Standard) 2017 Hepatitis B Immunization (1 of 3 - 19+ 3-dose series) 2020 Tetanus Diphtheria and Pertu ssis Immunization (1 - Tdap) 2020 Covid-19 Immunization (1 - 2 024-25 season) 2023 Influenza Immunization (#1) 2024 HIB Immunization Aged Out No longer e ligible based on patient's age to complete this topic Hepatitis A Immunization Aged Out No longer eligible based on patient's age to complete this topic Meningococcal Immunization Aged Out N o longer eligible based on patient's age to complete this topic Pneumococcal: Ped (0 to 5 Yr s) and At-Risk Member (6 to 64 Yrs) Aged Out No longer e ligible based on patient's age to complete this topic Polio Immunization Aged Out No longer eligible based on patient's age to complete this topic Varicella Immunization Aged Out No lo nger eligible based on patient's age to complete this topic Care Teams Body Component Engineer Relationship Specialty Start Date End Date Provider, ARABELLA Iniguez [address] PCP - General Shift Coordinator 05/11/20
--- OUTSIDE RECORDS SUMMARY | 2024-09-24 17:47 | XMS_ITS | Clinical Summary ---
Author Organization [facility] Address [address] [place] [address] Care Team Providers Care Certified Cytotechnologist Name Role Phone KittyBlade Primary Care Provider [phone] Allergies No known active allergies Medications nadolol (CORGARD) 80 MG tablet Take 1 tablet by mouth Daily. 3 Active amitriptyline (ELAVIL) 10 MG tablet TAKE ONE TABLET BY MOUTH EVERY DAY AT BEDTIME FOR cramping/ibs 4 Active baclofen (LIORESAL) 10 MG tablet Take 1 tablet by mouth Daily. 4 Active Vraylar 1.5 MG capsule capsule Take 1 capsule by mouth Daily. Active omeprazole (priLOSEC) 20 MG capsule 4 Active Pediatric Multivit-Minerals -C (CHEWABLES MULTIVITAMIN PO) Take by mouth. Active dilTIAZem CD (CARDIZEM CD) 180 MG 24 hr capsule Take 1 capsule by mouth Daily. 30 capsule 6 4 Active Active Problems Problem Noted Date Diagnosed Date Dysautonomia 12/18/2023 Family History Medical History Relation Name Comments No Known Problems Father Fainting Maternal Grandfather Pass away Fainting Maternal Grandmother Pass away Heart attack Maternal Grandmother Pass away Seizures Mother Heart failure Paternal Grandfather Pass away bf I was born Heart attack Paternal Grandmother Pass away Heart disease Paternal Grandmother Pass away No Known Problems Sister Relation Name Status Comments Father Alive Maternal Grandfather Pass away Maternal Grandmother Pass away Mother Alive Paternal Grandfather Pass away bf I was born Paternal Grandmother Pass away Sister Alive Social History Tobacco Use Types Packs/Day Years Used Date Smoking Tobacco: Every Day Electronic Cigarette Started: Passive Smoke Exposure: Past Smokeless Tobacco: Never Tobacco Cessation:Ready to Q uit: Not Asked; Counseling Given: Not Answered Comments:Just e cigs help with stress Alcohol Use Standard Drinks/Week Comments Never 0 (1 standard drink = 0.6 oz pur e alcohol) AUDIT-C Answer Date Recorded Q1: How often do you have a drink containing alc ohol? Never 06/06/2020 Average Number of Drinks Not on file 021 Frequency of Binge Drinking Not on file 05/25 Abuse Screen Answer Date Recorded Unsafe at Home or Work/School Not on file Feels Threatened by Someone? Not on file 12/2022 Does Anyone Keep You from Co ntacting Others or Doint Things Outside the Home? Not on file 12/04/2022 Physical Sign of Abuse Present Not on file 1 Housing Stability Answer Date Recorded Current Living Arrangements Not on file 11/24 Potentially Unsafe Housing Conditions Not on bigg e 12/04/2022 Family and Community Support Answer Aniceto e Recorded Help with Day-to-Day Activities Not on file 12/04/2022 Lonely or Isolated Not on file 12/04/2022 Employment Answer Date Recorded Do you want help finding or keeping work or a celso b? Not on file 12/04/2022 Disabilities Answer Date Recorded Concentrating, Remembering, or Making Decisions Difficulty Not on file 12/04/2022 Doing Errands Independently Difficulty Not on fi le 12/04/2022 Education Answer Date Recorded Help with school or training? Not on file Preferred Language Not on file 12/04/2022 Comments Unknown Sex and Gender Information Value Date Recorded Sex Assigned at Not on file Legal Sex Female 9:44 AM EDT Gender Identity Not on file Sexual Orientation Not on file Last Filed Vital Signs Vital Sign Reading Time Taken Comments Blood Pressure 100/84 12/18/2023 2:21 PM EDT Pulse 90 12/18/2023 2:21 PM EDT Temperature - - Respiratory Rate - - Oxygen Saturation 98% 12/18/2023 2:21 PM EDT Inhaled Oxygen Concentration - - Weight 50.3 kg (111 lb) 12/18/2023 2:21 PM EDT Height 165.1 cm (5' 5 ) 12/18/2023 2:21 PM EDT Body Mass Index 18.47 12/18/2023 2:21 PM EDT Plan of Treatment Upcoming Encounters Date Type Department Care Team (Late st Contact Info) Description 12/17/2024 11:00 AM EDT Office Visit [facility] [address] [place] [phone] Devin Castrejon PA [address] [place] [address] Health Maintenance Due Date Last Done Comments Annual Gynecologic Pelvic an d Breast Exam 2001 MENINGOCOCCAL B VACCINE (1 o f 2 - Standard) 2017 ANNUAL WELLNESS VISIT 06/06/2020 CHLAMYDIA SCREENING 06/06/2020 HEPATITIS C SCREENING 06/06/2020 Pneumococcal Vaccine 0-49 (1 of 2 - PCV) 2020 07/15/2002, 01/05/2002, 2001, Additional history exists PAP SMEAR 2022 TDAP/TD VACCINES (2 - Td or Tdap) 09/25/2023 014 COVID-19 Vaccine (1 - 2023-2 5 season) 2023 INFLUENZA VACCINE 11/24/2024 12/11/2017, , 01/17/2010 HPV VACCINES Completed 09/11/2017, 09/24/2013 Insurance [facility] MEDICARE ADVANTAGE [facility] HMO Care Teams Certified Cytotechnologist Relationship Specialty Start Date End Date Blade Tang DO [address] [place] [id number] PCP - General Internal Medicine 06/09/23
--- OUTSIDE RECORDS SUMMARY | 2024-09-24 17:47 | XMS_ITS | Clinical Summary ---
Author Organization [facility] Address [address] [place] [address] Care Team Providers Care Simulation Developer Name Role Phone Orville Spann MD Primary Care Provider [phone] Allergies No known active allergies Medications dilTIAZem CD (Cardizem CD) 180 MG 24 hr capsule Take 1 capsule (180 mg) by mouth 1 (one) time each day. 2 Active estradiol (Estrace) 2 MG tablet Take 1 tablet (2 mg) by mouth if needed. Active nadolol (Corgard) 40 MG tablet Take 1 tablet (40 mg) by mouth 1 (one) time each day. Active escitalopram (Lexapro) 5 MG tablet 1 tablet (5 mg). Act gamal clonazePAM (KlonoPIN) 0.5 MG tablet Take 1 tablet (0.5 mg) by mouth 2 (two) times a day. Active cariprazine (Vraylar) 1.5 MG capsule Take 1 capsule (1.5 mg) by mouth 1 (one) time each day. Active amitriptyline (Elavil) 10 MG tablet TAKE ONE TABLET BY MOUTH EVERY DAY AT BEDTIME FOR cramping/ibs Active baclofen (Lioresal) 10 MG tablet Take 1 tablet (10 mg) by mouth 1 (one) time each day. 4 Active buPROPion XL (Wellbutrin XL) 300 MG 24 hr tablet Take 1 tablet (300 mg) by mouth 1 (one) time each day. Active FLUoxetine (PROzac) 20 MG capsule Take 1 capsule (20 mg) by mouth 1 (one) time each day. 4 Active omeprazole (PriLOSEC) [address] capsule Take 1 capsule (20 mg) by mouth 1 (one) time each day. Active dilTIAZem CD (Cardizem CD) 240 MG 24 hr capsule Take 1 capsule (240 mg) by mouth 1 (one) time each day. 4 Active nadolol (Corgard) 80 MG tablet Take 1 tablet (80 mg) by mouth 1 (one) time each day. 4 Active methIMAzole (Tapazole) 5 MG tabletIndicatio ns:Hyperthyroid ism Take 0.5 tablets (2.5 mg) by mouth 1 (one) time each day. 45 tablet 1 4 Active Additional Information Patient not taking.Reported on 09/01/2024 mirtazapine (Remeron) 15 MG tablet TAKE 1/2 TO 1 TABLET BY MOUTH EVERY DAY 4 Active polyethylene glycol (Miralax) 17 GM/SCOOP powder Take 17 g by mouth 1 (one) time each day. Active desvenlafaxine (Pristiq) 50 MG 24 hr tablet Take 1 tablet by mouth daily. 5 Active Active Problems Problem Noted Date Diagnosed Date Seizure 06/24/2023 Weight loss 04/01/2022 Sleep disturbance 04/01/2022 Hyperthyroidism 12/04/2021 Night sweats 12/04/2021 Palpitation 12/04/2021 Chest pain 12/04/2021 Pharyngoesophageal dysphagia 12/04/2021 Tremor 12/04/2021 Anxiousness 12/04/2021 Other constipation 12/04/2021 Cold intolerance 12/04/2021 Encounters Date Type Department Care Team Description 09/02/2024 Results Follow-Up [facility] Endocrinology [address] [place] [phone] Jerrica Caicedo DO 09/01/2024 3:00 PM EDT Office Visit [facility]ology [address] [place] [phone] Jerrica Caicedo DO Hyperthyroidism (Primary Dx); Pharyngoesophageal dysphagia; Constipation, unspecified constipation type 09/01/2024 Travel 08/31/2024 Travel from Last 3 Months Family History Medical History Relation Name Comments Conversions - Other Father Tobacco abuse Epilepsy Mother Relation Name Status Comments Father Mother Social History Tobacco Use Types Packs/Day Years [...] Pulse 55 09/01/2024 2:33 PM EDT Temperature 36.8 C (98.3 F) 08/12/2022 2:06 PM EDT Respiratory Rate 16 08/12/2022 2:06 PM EDT Oxygen Saturation 97% 08/12/2022 2:06 PM EDT Inhaled Oxygen Concentration - - Weight 59.4 kg (130 lb 15.3 oz) 09/01/2024 2:33 PM EDT Height 165.1 cm (5' 5 ) 09/01/2024 2:3 3 PM EDT Body Mass Index 21.79 09/01/2024 2:33 PM EDT Plan of Treatment Upcoming Encounters Date Type Department Care Team (Late st Contact Info) Description 09/30/2024 1:15 PM EDT Appointment [facility] Ultrasound [address] [place] [phone] Health Maintenance Due Date Last Done Comments [facility]-HIV Screening 2001 [facility]-Hepatitis C Screening 2001 [facility]-Medicare Annual Wellness (AWV) 2001 [facility]-Infant/Child/Adol SDOH Screenings 2001 [facility]- SDOH Screenings 06/21/2019 [facility]-Adult SDOH Screenings 06/21/2019 [facility]-Pneumococcal Vaccine: Pediatrics (0 to 5 Years) and At-Risk Patients (6 to 49 Years) (1 of 2 - PCV) 2020 07/15/2002, 01/05/2002, 2001, Additional history exists [facility]-Pap Smear 2022 [facility]-DTaP,Tdap,and Td Vaccines (7 - Td or Tdap) 09/25/2023 09/24/2013, 06/21/2005, 09/22/2002, Additional history exists [id number] Vaccine (1 - season) 2023 [facility]-Influenza Vaccine (#1) 10/25/202412/11, 11/17/2014, 01/17/2010 [facility]-Depression Screening 10/27/2024 10/28/2023 [facility]-Zoster Vaccines (1 of 2) 06/21/2051 09/24/2013, 07/15/2002 [facility]-HIB Vaccines Completed 07/15/2002, , 2001 [facility]-Hepatitis B Vaccines Completed 003, 2001, 2001 [facility]-IPV Vaccines Completed 06/21/2005, 01/2002, 2001, Additional history exists [facility]-Varicella Vaccines Completed 09/24/2013, 2002 HPV Vaccines Completed 09/11/2017, 09/24/2013 [facility]-Hepatitis A Vaccines Completed 09/11/2017, 02/2013 [facility]-Rotavirus Vaccines Aged Out No lo nger eligible based on patient's age to complete this topic Procedures Procedure Name Priority Date/Time Associated Diagnosis Comments TSH REFLEX FT4 Routine 09/01/2024 3:31 PM EDT Hyperthyroidism FREE T4, PLASMA Routine 09/01/2024 3:31 PM EDT Hyperthyroidism from Last 3 Months Results * TSH Reflex FT4 (09/01/2024 3:31 PM EDT) Thyroid Stimulating Hormone, Plasma 0.52 0.40 - 4.20 uIU/mL 09/01/2024 7:10 PM EDT [facility] Blood Venous blood specimen / Unknown Venipuncture / Unknown 09/01/2024 3:31 PM EDT 09/01/2024 3:32 PM EDT Narrative [facility] - 09/01/2024 7:10 PM EDT Trimester Specific Ranges TSH ( IU/mL) 1st Trimester 0.1 - 3.0 2nd Trimester 0.19 - 4.06 3rd Trimester 0.3 - 3.7 Jerrica Caicedo DO LAB BLOOD ORDERABLES Final Result Performing Organization Address City[facility]/ZIP Co de Phone Number [facility] [address] [place] [address] * T4, free (09/01/2024 3:31 PM EDT) Free T4, Plasma 1.4 0.8 - 1.7 ng/dL 09/01/2024 7:10 PM EDT [facility] Blood Venous blood specimen / Unknown Venipuncture / Unknown 09/01/2024 3:31 PM EDT 09/01/2024 3:32 PM EDT Narrative [facility] - 09/01/2024 7:10 PM EDT Free T4 Trimester Specific Ranges 1st Trimester 0.9 - 1.50 ng/dL 2nd Trimester 0.7 - 1.40 ng/dL 3rd Trimester 0.7 - 1.24 ng/dL Jerrica Caicedo DO LAB BLOOD ORDERABLES Final Result Performing Organization Address City/[facility] [place] [address] from Last 3 Months Insurance [employer] [facility] MEDICAID [employer] MEDICARE Care Teams Simulation Developer Relationship Specialty Start Date End Date Orville Spann MD [address] [place] [address] PCP - General 07/07/20
--- OUTSIDE RECORDS SUMMARY | 2024-09-24 17:47 | XMS_ITS | Encounter Summary ---
Author Organization [facility] Address [address] [place] [address] Care Team Providers Care Chief Wharfinger Name Role Phone Orville Spann MD Primary Care Provider [phone] Encounter Details Date Type Department Care Team (Latest Contact Info) Description 09/01/2024 Travel Social History Tobacco Use Types Packs/Day Years [...] Info) Description 09/30/2024 1:15 PM EDT Appointment [facility] Ul[facility]ound [address] [place] [phone] documented as of this encounter Visit Diagnoses Not on filedocumented in this encounter Additional Health Concerns Assessment Noted Time A fall risk assessment has been complete d for the patient 06/24/2023 8:05 AM EDT A Body Mass Index follow-up plan has been documented for the patient 09/02/2024 8:03 AM EDT documented as of this encounter Care Teams Chief Wharfinger Relationship Specialty Start Date End Date Orville Spann MD [address] [place] [id number] PCP - General 07/07/20 documented as of this encounter
--- OUTSIDE RECORDS SUMMARY | 2024-09-24 17:48 | XMS_ITS | Clinical Summary ---
Author Organization [employer] ([place], [place], [place], [place]) Address [address] [place] [address] Care Team Providers Care Reefer Truck Driver Name Role Phone Edinson Aguirre MD Primary Care Provider [phone] Allergies No known active allergies Medications baclofen [...] 07/16/19 03,01/05/2002,2001,08/06 Tdap 09/24/2013 Varicella (VARIVAX) 09/24/2013,07/15/2002 Family History Medical History Relation Name Comments Seizures Mother Anxiety disorder Other Dementia Other Depression Other Heart disease Other Migraines Other Schizophrenia Other Seizures Other Stroke Other Relation Name Status Comments Mother Other Social History Tobacco Use Types Packs/Day Years [...] Date Prashant rded Speak language other than Vietnamese at home Not on file 07/17/2023 Want [...] 11/17/2023 11:59 AM EDT Plan of Treatment Health Maintenance Due Date Last Done Comments HIV Screening 2016 Meningococcal B Vaccine (1 of 2 - Standard) 2017 Hepatitis C Screening 06/21/2019 Pap Smear 2022 DTAP/TDAP/TD VACCINES (7 - Td or Tdap) 09/25/2023 09/24/2013, 06/21/2005, 09/22/2002, Additional history exists COVID-19 VACCINE ( - season) 2023 Medicare Initial AWV [id number] 05/26/2024 Influenza Vaccine (#1) 2024 Tobacco Cessation Counseling and Screening (12+) 11/05/2024 11/06/2023 Pneumococcal Vaccine: 0-49 Years Aged Out 07/15/2002, 01/05/2002, 2001, Additional history exists No longer eligible based on patient's age to complete this topic Insurance [employer] MEDIC[facility] [phone] [employer] [facility] [place] Advance Directives For more information, please contact: [phone] * Full Code (Latest Code Status on File) Date Activated Date Inactivated Comments 11/17/2023 11:40 AM 11/19/2023 2:39 PM Care Teams Reefer Truck Driver Relationship Specialty Start Date End Date Edinson Aguirre MD PCP - General Infectious Disease 07/23/23
--- OUTSIDE RECORDS SUMMARY | 2024-09-24 17:48 | XMS_ITS | Encounter Summary ---
Author Organization [facility] Address [address] [place] [place] [address] Care Team Providers Care Sole Skiver Name Role Phone Orville Spann MD Primary Care Provider [phone] Encounter Details Date Type Department Care Team (Latest Contact Info) Description 08/31/2024 Travel Social History Tobacco Use Types Packs/Day [...] Info) Description 09/30/2024 1:15 PM EDT Appointment [facility] Ultrasound [address] [place] [phone] documented as of this encounter Visit Diagnoses Not on filedocumented in this encounter Additional Health Concerns Assessment Noted Time A fall risk assessment has been complete d for the patient 06/24/2023 8:05 AM EDT A Body Mass Index follow-up plan has been documented for the patient 03/02/2024 4:04 PM EST documented as of this encounter Care Teams Sole Skiver Relationship Specialty Start Date End Date Orville Spann MD [address] [place] [id number] PCP - General 07/07/20 documented as of this encounter
--- NOTE | 2024-09-24 18:15 | HMH.EDGENADL ---
Discharge Plan Disposition Patient Disposition: Home, Self-Care Prescriptions Prescriptions: New naproxen 500 mg tablet 500 mg PO BID PRN (Reason: pain) 7 Days Qty: 14 0RF cyclobenzaprine 5 mg tablet 5 mg PO TID PRN (Reason: muscle spasm) 5 Days Qty: 15 0RF No Action diltiazem HCl 180 mg capsule,extended release 24hr 180 mg PO DAILY Qty: 30 5RF propranolol 120 mg capsule,extended release 24 hr 120 mg PO DAILY Qty: 30 5RF desvenlafaxine succinate [Pristiq] 50 mg tablet extended release 24 hr 50 mg PO DAILY Qty: 30 1RF (DME) blood pressure monitor Kit See Rx Instructions .ROUTE .MEDSUPPLY Qty: 1 0RF Rx Instructions: As directed Nexplanon 68 mg implant 1 implant subdermal DIRECTED ondansetron 4 mg tablet,disintegrating 4 mg PO Q8H PRN (Reason: nausea and vomiting) Qty: 10 0RF omeprazole 20 mg capsule,delayed release(DR/EC) See Rx Instructions .ROUTE .COMPLEX Qty: 90 2RF Dose Instruction: TAKE ONE CAPSULE BY MOUTH EVERY DAY Rx Instructions: TAKE ONE CAPSULE BY MOUTH EVERY DAY Referrals Follow up/Referrals: Wimla Infante APRN [Primary Care Provider, Family Practice] - See instructions Activity Restrictions/Add. Instructions Additional Instructions/Restrictions: No definitive evidence of a DVT or clot in your lower extremity also no localized abnormality on the calf itself. However your screening blood test, your D-dimer was mildly elevated and we have set up a formal outpatient ultrasound on Friday please make sure you do not miss this as we cannot definitively rule out a blood clot at this moment albeit unlikely right now. Clinical Impressions Clinical Impression: Pain of left calf Stand Alone Forms Stand Alone Forms: Work/School Release Print Language Print Language: Vietnamese Discharge ED Provider: Teddy Peterson General Adult HPI General Chief complaint: Extremity Injury, Lower Stated complaint: L Calf Pain and Swelling Time Seen by Provider: 09/24/24 17:54 Mode of Arrival: Ambulatory Source of Information: Patient Description of Symptoms (Recalled from ER Triage Doc. by RN): pt c/o L calf pain and edema x2wks. pt denies injury. pt states her pain is 9/10 and sharp/shooting and squeezing in nature. pt denies taking anything for pain. History of Present Illness HPI narrative: Patient is a 24-year-old presented today with left lateral calf pain for the last 2 weeks. No injuries to her knowledge. No history of DVT or PE. She is on Pristiq but has no other hormone therapy. No shortness of breath or chest pain. No discoloration fevers chills etc. Related Data Home Medications ?Medication ?Instructions ?Recorded ?Confirmed etonogestrel 68 mg subdermal 1 implant subdermal DIRECTED 01/05/24 09/13/24 implant (Nexplanon) Previous Rx's ?Medication ?Instructions ?Recorded blood pressure monitor #1 ea 10/01/23 diltiazem HCl 180 mg 180 mg PO DAILY #30 caps 04/06/24 capsule,extended release 24 hr propranolol 120 mg capsule,24 120 mg PO DAILY #30 caps 04/08/24 hr,extended release ondansetron 4 mg disintegrating 4 mg PO Q8H PRN nausea and 04/20/24 tablet vomiting #10 tabs omeprazole 20 mg capsule,delayed See Rx Instructions .Route 05/28/24 release .COMPLEX #90 caps desvenlafaxine succinate 50 mg 50 mg PO DAILY #30 tabs 06/30/24 tablet,extended release 24 hr (Pristiq) cyclobenzaprine 5 mg tablet 5 mg PO TID PRN muscle spasm 5 09/24/24 days #15 tabs naproxen 500 mg tablet 500 mg PO BID PRN pain 7 days #14 09/24/24 tabs Allergies Allergy/AdvReac Type Severity Reaction Status Date / Time No Known Allergies Allergy Verified 09/24/24 17:43 [facility] Disclaimer: The information contained in this section may have been updated after the patient was seen, as this information can be updated by other users. Medical History (Updated 09/24/24 @ 18:19 by Teddy Peterson MD) Encounter for insertion of subdermal contraceptive Viral syndrome Encounter for loop recorder at end of battery life UTI (urinary tract infection) Pharyngitis Acute viral syndrome Encounter for laboratory testing for COVID-19 virus Breast mass, right SCIWORA (spinal cord injury without radiographic abnormality) Cervical radiculopathy Seizure Dehydration Influenza Anxiety and depression History of gastroesophageal reflux (GERD) Hyperthyroidism Reactive airway disease with acute exacerbation SVT (supraventricular tachycardia) Palpitations Surgical History History of loop recorder History of esophagogastroduodenoscopy (EGD) Family History Other Cancer Heart disease Seizures Social History Smoking Status: Current every day smoker tobacco type: e-cigarettes second hand exposure: No alcohol intake: never substance use type: other details: [employer] current occupational status: other Travel in the last 8 weeks?: None household members: significant other housing: house caffeine: Yes Have you lived/traveled outside US in past 30 days?: No Contact w/someone who lives/traveled outside US past 30 days?: No Exposure to someone with infectious disease in past 14 days?: No Do you have a fever (greater than 100.4 F or 38 C)?: No Have you tested positive for COVID-19?: No Exposed to someone with COVID-19 in past 14 days?: No Do you have a sore throat?: No Do you have a cough?: No Do you have any weakness?: No Do you have any diarrhea?: No Are you experiencing any unusual bleeding?: No Do you have any muscle aches/pain?: No Do you have any abdominal pain?: No Are you experiencing loss of taste or smell?: No Other Medical History Have you received the Flu Vaccine for this season: No Have you received the Pneumonia Vaccine: No ROS Obtained: Yes All systems reviewed & no additional complaints except as documented Physical Exam General General appearance: alert and in no apparent distress Respiratory Respiratory exam: Present normal lung sounds bilaterally Cardiovascular Cardiovascular exam: Present regular rate Extremities Exam Extremities exam: Present other (Patient has subjective tenderness over the lateral aspect of the left calf not appreciably swollen in comparison with the right no significant edema lower extremities neurovascularly intact no discoloration etc.) Neurological Exam Neurological exam: Present alert and oriented X3 Medical Decision Making Medical Records Screening: Per USPSTF and CDC recommendations, given the prevalence of disease in our region, it is our hospital?s policy to screen for HIV and viral Hepatitis for all patients aged 18 and over and those with ongoing risk factors. Colt Inquiry Pt receiving controlled substance: No Vital Signs: 09/24/24 17:36 09/24/24 19:00 Temperature 98.7 F Temperature Source Oral Pulse Rate 63 Pulse Rate [Left] 65 Respiratory Rate 16 Blood Pressure 124/78 Blood Pressure [Right Arm] 121/59 L Blood Pressure Mean [Right Arm] 79 Blood Pressure Source [Right Arm] Automatic Cuff Blood Pressure Position [Right Arm] Sitting 02 Sat by Pulse Oximetry 98 100 Oxygen Delivery Method Room Air Room Air Lab Data Lab results reviewed: Yes I reviewed the patient's lab results. Lab Results 09/24/24 18:26: WBC 7.8, RBC 4.51, Hgb 12.7, Hct 38.8, MCV 86.0, MCH 28.2, MCHC 32.7, RDW 13.2, Plt Count 406, MPV 10.4, Neut % (Auto) 53.4, Lymph % (Auto) 34.7, Pennington % (Auto) 9.8 H, Eos % (Auto) 1.5, Baso % (Auto) 0.5, Neut # (Auto) 4.2, Lymph # (Auto) 2.7, Penning[place] # (Auto) 0.8, Eos # (Auto) 0.1, Baso # (Auto) 0.0, D-Dimer 0.98 H, Sodium 140, Potassium 3.7, Chloride 109 H, Carbon Dioxide 23, Anion Gap 11.7, BUN 8, Creatinine 0.60, Estimated Creat Clear 139, Estimated GFR 124, Est GFR ( Amer) 150, Glucose 92, Calcium 9.6, Magnesium 2.0, Total Bilirubin 0.5, AST 46 H, ALT 41, Alkaline Phosphatase 123, Total Creatine Kinase 207 H, Total Protein 7.1, Albumin 4.4, Globulin 2.7, Albumin/Globulin Ratio 1.6 09/24/24 18:26 09/24/24 18:26 Orders (Tests/Meds): ED MEDICATIONS Discontinued Medications Generic Name Dose Route Start Last Admin Trade Name Freq PRN Reason Stop Dose Admin Naproxen 500 mg 09/24/24 18:56 Naproxen 500mg Tablet PO 09/24/24 18:57 ONCE ONE ORDERS Category Date Time Status POCUS Point of Care (ER Only) Stat Exams 09/24/24 17:57 Ordered CBC w/Auto Diff [Complete Blood Count Auto Diff] Stat Lab 09/24/24 18:26 Completed CK [Creatine Kinase] Stat Lab 08/01/25 18:26 Completed CMP [Comprehensive Metabolic Panel] Stat Lab 09/24/24 18:26 Completed D-Dimer Stat Lab 09/24/24 18:26 Completed Magnesium Stat Lab 09/24/24 18:26 Completed Medical Decision Narrative: 24-year-old with above history and physical exam is essentially normal. Will get some basic blood work to rule out any significant electrolyte abnormality causing this for myositis. Will obtain a D-dimer and a bedside ultrasound it is Friday we do not have the ability to get a formal ultrasound at this point but if the D-dimer is less than 0.5 and bedside ultrasound is unremarkable I will be comfortable ruling out DVT as she is very low likelihood from a pretest probability standpoint of having this. If D-dimer is equivocal we will have her follow-up outpatient with a formal ultrasound order. Bedside ultrasound was performed by myself which was unremarkable extending from her common femoral all the way down through her popliteal localize ultrasound at the location of pain was also unremarkable labs unremarkable aside from mildly elevated D-dimer therefore I cannot definitively rule out a DVT at this point. We will have her follow-up with the close outpatient DVT venous duplex ultrasound. Order has been placed and they will call her possibly to do the ultrasound tomorrow. I still have a very low pretest probability and feel that the risk of anticoagulation outweighs benefit. Therefore will not anticoagulate her but cannot rule out DVT and she is aware of this. Otherwise Flexeril and naproxen will be prescribed for nonspecific muscular pain. Working diagnosis is a calf strain. Procedures Miscellaneous Procedure Procedure Performed: Structures identified Common femoral veins and popliteal veins on the left Findings complete compression of left common femoral veins and left popliteal veins with normal augmentation bilaterally Impression no evidence of left DVT The study was performed by me and I personally interpreted all images and videos based on my clinical judgment these images were adequate and did not necessitate further imaging Limited soft tissue ultrasound Indication: Soft tissue pain Identified structures: Location: Left calf Findings: Normal soft tissue ultrasound Impression: Normal soft tissue Images were saved to permanent archive The study was technically adequate Soft Tissue CPT Codes: CPT Neck: 22829-86 CPT Upper extremity: 53321-11 CPT Axilla: 70785-67 CPT Chest wall: 30311-87 CPT Breast: 58700-04-LG/LT (complete), 66036-79-MV/LT (limited), CPT Upper Back: 83489-97 CPT Lower Back: 05255-74 CPT Abdominal Wall: 58013-81 CPT Pelvic Wall: 86517-01 CPT Lower Extremity: 91961-00 CPT Other Soft Tissue: 46406-92 This study was performed by me, and I personally interpreted all images/videos. Based on my clinical judgement, these images were adequate and did not necessitate further imaging. Critical Care Critical Care Time Critical Care Time: No
[2024-09-24 18:34] LABS: Hematocrit 38.8 % (37.0-47.0); Hemoglobin 12.7 g/dL (12.2-16.2); Immature Granulocytes % 0.1 %; Mean Corpuscular HGB Conc 32.7 g/dL (31.8-35.4); Mean Corpuscular Hemoglobin 28.2 pg (27.0-31.2); Mean Corpuscular Volume 86.0 fl (81-99); Nucleated Red Blood Cells % 0 %; Platelet Count 406 K/mm3 (142-424); Red Blood Count 4.51 M/mm3 (4.20-5.40); Red Cell Distribution Width-SD 41.6 fL; White Blood Count 7.8 K/mm3 (4.8-10.8)
[2024-09-24 18:45] LABS: Alanine Aminotransferase 41 U/L (12-78); Albumin Level 4.4 g/dl (3.5-5.0); Albumin/Globulin Ratio 1.6 (1.1-1.8); Alkaline Phosphatase 123 U/L (38-126); Anion Gap 11.7 mEq/L (5-15); Aspartate Amino Transferase 46 U/L (14-36); Bilirubin,Total 0.5 mg/dl (0.2-1.3); Blood Urea Nitrogen 8 mg/dl (7-17); Calcium 9.6 mg/dl (8.4-10.2); Carbon Dioxide 23 mmol/L (22.0-30.0); Chloride 109 mmol/L (98-107); Creatine Kinase 207 U/L (30-135); Creatinine Clearance Estimated 139 mL/min (50-200); Creatinine,Serum 0.60 mg/dl (0.52-1.04); Estimated Glomerular Filt Rate 124 ml/min (>60); GFR (African American) 150 ML/MIN (>60); Globulin 2.7 g/dL (1.3-3.2); Glucose 92 mg/dl (74-100); Magnesium 2.0 mg/dl (1.6-2.3); Potassium 3.7 mmoL/L (3.5-5.1); Sodium 140 mmol/L (136-145); Total Protein,Serum 7.1 g/dl (6.3-8.2)
[2024-09-24 18:49] LABS: D-Dimer 0.98 ug/mL (0.0-0.5)
[2024-09-24 19:00] VITALS: BP 124/78; PULSE 63; O2SAT 100
[2024-09-24] MEDS: NAPROXEN 500MG TABLET 500 MG PO (19:12)
[2024-09-24 19:17] VITALS: BP 124/78; PULSE 77; RESP 16; TEMP 37.1; O2SAT 99
== END 2024-09-24 19:18 | disposition home or self-care (01) ==
PROVIDERS: Emergency Provider Student in an Organized Health Care Education/Training Program; PCP Family Medicine
DX: M79.662 Pain in left lower leg (principal)
CPT/HCPCS: 80053; 82550; 83735; 85025; 85378; 99284

== ENCOUNTER 2024-09-27 08:25 | Outpatient (CLI) | payer MEDICARE, OTHER, SELFPAY ==
--- OUTSIDE RECORDS SUMMARY | 2023-11-04 10:00 | XMS_ITS | Encounter Summary ---
Author Organization [employer] ([place], [place], [place], [place]) Address [address] [place] [address] Care Team Providers Care Investigative Reporter Name Role Phone Edinson Aguirre MD Primary Care Provider [phone] Encounter Details Date Type Department Care Team (Late st Contact Info) Description 11/04/2023 10:00 AM EDT Hospital Encounter [facility] 5B Medical Telemetry Unit [address] [place] [address] Riri Villarreal MD [address] [place] [address] [id number] [place] [id number] Social History Tobacco Use Types Packs/Day Years [...] Date Prashant rded Speak language other than Comoran at home Not on file 07/17/2023 Want [...] on filedocumented in this encounter Care Teams Investigative Reporter Relationship Specialty Start Date End Date Edinson Aguirre MD PCP - General Infectious Disease 07/23/23 documented as of this encounter
--- OUTSIDE RECORDS SUMMARY | 2024-09-01 15:00 | XMS_ITS | Encounter Summary ---
Author Organization Healthcare Address [address] [place] [address] Care Team Providers Care Cracking Machine Operator Name Role Phone Orville Spann MD Primary Care Provider [phone] Reason for Referral * Imaging (Routine) - Authorized Specialty Diagnoses / Procedures Referred By Jazz mckeon Referred To Contact Radiology Diagnoses Hyperthyroidism Pharyngoesophageal dysphagia Procedures US Head Neck Soft Tissue Jerrica Caicedo DO [address] [address] Phone: tel: fax: Referral ID Status Reason Start Date Expiration Date V isits Requested Visits Authorized [id number] Authorized 09/01/2024 03/03/2026 1 1 Reason for Visit * Reason Comments Hyperthyroidism Encounter Details Date Type Department Care Team (Late st Contact Info) Description 09/01/2024 3:00 PM EDT Office Visit [facility] Endocrinology [address] [place] [address] Jerrica Caicedo DO [address] [facility] [address] [place] [address] Hyperthyroidism (Primary Dx); Pharyngoesophageal dysphagia; Constipation, unspecified constipation type Social History Tobacco Use Types Packs/Day Years Used Date Smoking Tobacco: Every Day Cigarettes Last attempted to quit: 2020 Smokeless Tobacco: Never Tobacco Cessation:Ready to Q uit: Not Asked; Counseling Given: Not Answered Alcohol Use Standard Drinks/Week Comments No 0 (1 standard drink = 0.6 oz pure alcohol) Alcoholic Drinks/day: Denies alcohol consumption PHQ-2 Answer Date Recorded Patient Health Questionnaire-2 Score 0 10/28/2023 Comments No Sex and Gender Information Value Date Recorded Sex Assigned at Not on file Legal Sex Female 8:08 PM EDT Gender Identity Not on file Sexual Orientation Not on file documented as of this encounter Last Filed Vital Signs Vital Sign Reading Time Taken Comments Blood Pressure 98/68 09/01/2024 2:33 PM EDT Pulse 55 09/01/2024 2:33 PM EDT Temperature - - Respiratory Rate - - Oxygen Saturation - - Inhaled Oxygen Concentration - - Weight 59.4 kg (130 lb 15.3 oz) 09/01/2024 2:33 PM EDT Height 165.1 cm (5' 5 ) 09/01/2024 2:33 PM EDT Body Mass Index 21.79 09/01/2024 2:33 PM EDT documented in this encounter Miscellaneous Notes * Progress Notes - Sharan Walker MD - 09/01/2024 3:00 PM EDT Established Patient Visit [facility] Chief Complaint: Hyperthyroidism Subjective HPI Ms. Rao, 24 y/o F with history of seizure disorder and SVT is here today for a follow up visit for hyperthyroidism. She has been off of her Methimazole since last visit and had euthyroid labs in 02/2024. She would like repeat blood work today. She was diagnosed with IBS-C on account of her chronic constipation andhas a follow-up scheduled with GI in the next couple of weeks. She is still taking prn Miralax more days than not and was also prescribed Omeprazole for constipation symptoms, with some improvement. Today, she is concerned about new pain with swallowing that has come on since her last visit. She feels a fullness in her throat and says that constriction causes food to be difficult to pass and causes pain; in turn, this has reduced her desire to eat, although she still has a normal appetite. Denies difficulty breathing associated with this neck fullness. Denies additional thyroid symptoms including chest pain, palpitations, temperature intolerance. Thyroid Last Visit: 03/02/24 Diagnosis: hyperthyroidism Diagnosis Date: 2021 Current Medications: None Compliance: NA Other Treatments: Most Recent thyroid labs: Lab Results Component Value Date TSH 1.42 03/02/2024 FREET4 1.0 03/02/2024 Thyroid Imagin09/17/2021 Thyroid ultrasound Right lobe measures 1.1 x 4.2 x 7.8 cm Left lobe measures 1.1 x 3.8 x 0.8 cm Isthmus measures 3 mm Nodules: yes - less than 5 mm colloid cyst in right lobe measured. General statement of bilateral colloid cysts which are benign. No solid nodules identified. Texture of thyroid: not given Thyroid Antibody Testing: Thyroid Peroxidase Antibody Date Value Ref Range Status 12/04/2021 <5 <=8 IU/mL Final Family History: no thyroid abnormalities Radiation History: None Thyroid Surgery Hx: None Current Outpatient Medications on File Prior to Visit Medication Sig Dispense Refill amitriptyline (Elavil) 10 MG tablet TAKE ONE TABLET BY MOUTH EVERY DAY AT BEDTIME FOR cramping/ibs baclofen (Lioresal) 10 MG tablet Take 1 tablet (10 mg) by mouth 1 (one) time each day. buPROPion XL (Wellbutrin XL) 300 MG 24 hr tablet Take 1 tablet (300 mg) by mouth 1 (one) time each day. cariprazine (Vraylar) 1.5 MG capsule Take 1 capsule (1.5 mg) by mouth 1 (one) time each day. clonazePAM (KlonoPIN) 0.5 MG tablet Take 1 tablet (0.5 mg) by mouth 2 (two) times a day. desvenlafaxine (Pristiq) 50 MG 24 hr tablet Take 1 tablet by mouth daily. dilTIAZem CD (Cardizem CD) 180 MG 24 hr capsule Take 1 capsule (180 mg) by mouth 1 (one) time each day. dilTIAZem CD (Cardizem CD) 240 MG 24 hr capsule Take 1 capsule (240 mg) by mouth 1 (one) time each day. escitalopram (Lexapro) 5 MG tablet 1 tablet (5 mg). estradiol (Estrace) 2 MG tablet Take 1 tablet (2 mg) by mouth if needed. FLUoxetine (PROzac) 20 MG capsule Take 1 capsule (20 mg) by mouth 1 (one) time each day. nadolol (Corgard) 40 MG tablet Take 1 tablet (40 mg) by mouth 1 (one) time each day. methIMAzole (Tapazole) 5 MG tablet Take 0.5 tablets (2.5 mg) by mouth 1 (one) time each day. (Patient not taking: Reported on 09/01/2024) 45 tablet 1 mirtazapine (Remeron) 15 MG tablet TAKE 1/2 TO 1 TABLET BY MOUTH EVERY DAY (Patient not taking: Reported on 09/01/2024) nadolol (Corgard) 80 MG tablet Take 1 tablet (80 mg) by mouth 1 (one) time each day. (Patient not taking: Reported on 09/01/2024) omeprazole (PriLOSEC) [address] capsule Take 1 capsule (20 mg) by mouth 1 (one) time each day. (Patient not taking: Reported on 09/01/2024) polyethylene glycol (Miralax) 17 GM/SCOOP powder Take 17 g by mouth 1 (one) time each day. (Patientnot taking: Reported on 09/01/2024) No current facility-administered medications on file prior to visit. No Known Allergies All medications have been reviewed today. The following portions of the patient's chart were reviewed in this encounter and updated as appropriate: past medical history, surgical history, family history, tobacco history, allergies, and medications Review of Systems Constitutional: Positive for unexpected weight change (gain ~ 10 lbs). Negative for fatigue. HENT: Negative for trouble swallowing. Positive for odynophagia Eyes: Negative for visual disturbance. Respiratory: Negative for shortness of breath. Gastrointestinal: Positive for constipation (chronic, improved). Negative for abdominal pain. Endocrine: Negative for cold intolerance and heat intolerance. Neurological: Negative for weakness and headaches. Psychiatric/Behavioral: Negative for sleep disturbance. The patient is not nervous/anxious. Objective Vitals: 09/01/24 1433 BP: 98/68 Pulse: 55 Physical Exam Vitals reviewed. Constitutional: General: She is not in acute distress. Eyes: Extraocular Movements: Extraocular movements intact. Neck: Comments: Thyroid gland is mildly enlarged but non-tender Cardiovascular: Rate and Rhythm: Normal rate and regular rhythm. Pulses: Normal pulses. Heart sounds: Normal heart sounds. Pulmonary: Effort: Pulmonary effort is normal. No respiratory distress. Breath sounds: Normal breath sounds. Abdominal: General: Abdomen is flat. There is no distension. Tenderness: There is no abdominal tenderness. Musculoskeletal: Cervical back: Neck supple. Right lower leg: No edema. Left lower leg: No edema. Skin: General: Skin is warm and dry. Neurological: Mental Status: She is alert. Mental status is at baseline. Comments: Tremor noted of hands Assessment/Plan Annalise was seen today for hyperthyroidism. Diagnoses and all orders for this visit: Hyperthyroidism (Primary) - TSH Reflex FT4; Future - TSH; Future - T4, free; Future - US Head Neck Soft Tissue; Future Pharyngoesophageal dysphagia - US Head Neck Soft Tissue; Future Constipation, unspecified constipation type Hyperthyroidism Dysphagia/Odynophagia -Etiology is currently unknown -Antibodies have been negative in the past -High suspicion for Graves disease given age of onset and only 5 mm colloid cyst was noted on priorUS -She was on Methimazole 2.5 mg daily but was discontinued following last visit given normal TFT andbeing on therapy since 2021 -She notes constipation, weight gain, new odynophagia PLAN: -Repeat TSH and FT4 today -If hyperthyroid will need to resume Methimazole and consider NM uptake scan -Given new odynophagia, will order thyroid U/S today IBS-C -New diagnosis d/t chronic constipation; established with GI -However, may have component of hyperthyroidism contributing to her sxs as well -Taking prn Miralax + Omeprazole -Recommend she discuss odynophagia with GI to see if EGD is warranted (repeat may be needed as it has been a while since last EGD) RTC in 1 year if labs are normal Sharan Walker MD Internal Medicine, Primary Care PGY-3 Electronically Signed by: Sharan Walker MD - 09/01/2024 - 3:16 PM Cosigned by Jerrica Caicedo DO at 09/02/2024 8:03 AM EDT Associated attestation - Jerrica Caicedo DO - 09/02/2024 8:03 AM EDT I saw and evaluated the patient with the resident/fellow. I discussed the case with the resident/fellow and agree with the findings and plan as documented. documented in this encounter Plan of Treatment Upcoming Encounters Date Type Department Care Team (Late st Contact Info) Description 09/30/2024 1:15 PM EDT Appointment [facility] Ultrasound [address] [place] [address] Scheduled Orders Name Type Priority Associated Diagnoses Orde r Schedule US Head Neck Soft Tissue Imaging Routine Hyperthyroidism Pharyngoesophageal dysphagia Expected: 09/01/2024 (Approximate), Expires: 03/05/2026 documented as of this encounter Results * T4, free (09/01/2024 3:31 PM EDT) Free T4, Plasma 1.4 0.8 - 1.7 ng/dL 09/01/2024 7:10 PM EDT [facility] Blood Venous blood specimen / Unknown Venipuncture / Unknown 09/01/2024 3:31 PM EDT 09/01/2024 3:32 PM EDT Narrative [facility] - 09/01/2024 7:10 PM EDT Free T4 Trimester Specific Ranges 1st Trimester 0.9 - 1.50 ng/dL 2nd Trimester 0.7 - 1.40 ng/dL 3rd Trimester 0.7 - 1.24 ng/dL us Jerrica Caicedo DO LAB BLOOD ORDERABLES Final Result [facility] [address] [place] [address] * TSH Reflex FT4 (09/01/2024 3:31 PM EDT) Thyroid Stimulating Hormone, Plasma 0.52 0.40 - 4.20 uIU/mL 09/01/2024 7:10 PM EDT [facility] Blood Venous blood specimen / Unknown Venipuncture / Unknown 09/01/2024 3:31 PM EDT 09/01/2024 3:32 PM EDT Narrative [facility] - 09/01/2024 7:10 PM EDT Trimester Specific Ranges TSH ( IU/mL) 1st Trimester 0.1 - 3.0 2nd Trimester 0.19 - 4.06 3rd Trimester 0.3 - 3.7 us Jerrica Caicedo DO LAB BLOOD ORDERABLES Final Result [facility] [address] [place] [address] documented in this encounter Visit Diagnoses Diagnosis Hyperthyroidism- Primary Thyrotoxicosis without mention of goiter or other cause, without mention of thyrotoxic crisis or storm Pharyngoesophageal dysphagia Dysphagia, pharyngoesophageal phase Constipation, unspecified constipation type documented in this encounter Additional Health Concerns Assessment Noted Time A fall risk assessment has been complete d for the patient 06/24/2023 8:05 AM EDT A Body Mass Index follow-up plan has been documented for the patient 09/02/2024 8:03 AM EDT documented as of this encounter Care Teams Cracking Machine Operator Relationship Specialty Start Date End Date Orville Spann MD [address] [place] [address] PCP - General 07/07/20 documented as of this encounter
--- NOTE | 2024-09-27 | CA_ITS ---
FINAL REPORT TECHNIQUE: extremity venous duplex was performed with augmentation and compression. CLINICAL HISTORY: LLE edema and pain x 2 weeks. She states she started a new job where she is on her feet excessively each day. Denies trauma. Smoker, subdermal control. COMPARISON: none FINDINGS: Proper flow is seen throughout the deep venous system of the left lower extremity. There is no evidence of deep venous thrombosis. IMPRESSION: No left lower extremity deep venous thrombosis. Reviewed, Interpreted and Dictated by Leopoldo Maguire MD Transcribed by Radha Gonzalez Authenticated and [facility]
--- OUTSIDE RECORDS SUMMARY | 2024-09-27 08:29 | XMS_ITS | Clinical Summary ---
Author Organization [facility] Address [address] [place] [address] Care Team Providers Care Wall Man Name Role Phone KittyBlade Primary Care Provider [phone] Allergies No known active allergies Medications nadolol [...] Description 12/17/2024 11:00 AM EDT Office Visit [facility] [address] [place] [phone] Devin Castrejon PA [address] [place] [address] Health Maintenance Due Date Last Done Comments [...] 01/17/2010 HPV VACCINES Completed 09/11/2017, 09/24/2013 Insurance [facility] MEDICARE ADVANTAGE [employer] HMO Care Teams Wall Man Relationship Specialty Start Date End Date Blade Tang DO [address] [place] [id number] PCP - General Internal Medicine 06/09/23
--- OUTSIDE RECORDS SUMMARY | 2024-09-27 08:29 | XMS_ITS | Clinical Summary ---
Author Organization [facility] Address [address] [place] [address] Care Team Providers Care Fox Farmer Name Role Phone Orville Spann MD Primary Care Provider [phone] Allergies No known active allergies Medications dilTIAZem [...] Department Care Team Description 09/02/2024 Results Follow-Up [facility] [address] [place] [phone] Jerrica Caicedo DO 09/01/2024 3:00 PM EDT Office Visit [facility] [address] [place] [phone] Jerrica Caicedo DO Hyperthyroidism (Primary Dx); Pharyngoesophageal [...] Info) Description 09/30/2024 1:15 PM EDT Appointment [facility] Ultrasound [address] [place] [address] Health Maintenance Due Date Last Done Comments [...] 09/25/2023 09/24/2013, 06/21/2005, 09/22/2002, Additional history exists [id number] Vaccine (1 - season) 2023 UKY-Influenza Vaccine [...] - 4.20 uIU/mL 09/01/2024 7:10 PM EDT [facility] Blood Venous blood specimen / Unknown Venipuncture / Unknown 09/01/2024 3:31 PM EDT 09/01/2024 3:32 PM EDT Narrative [facility] - 09/01/2024 7:10 PM EDT Trimester Specific Ranges TSH ( IU/mL) 1st Trimester 0.1 - 3.0 2nd Trimester 0.19 - 4.06 3rd Trimester 0.3 - 3.7 Jerrica Caicedo DO LAB BLOOD ORDERABLES Final Result Performing Organization Address City/[facility]/ZIP Co de Phone Number [facility] [address] [place] [address] * T4, free (09/01/2024 3:31 PM EDT) Free T4, Plasma 1.4 0.8 - 1.7 ng/dL 09/01/2024 7:10 PM EDT [facility] Blood Venous blood specimen / Unknown Venipuncture / Unknown 09/01/2024 3:31 PM EDT 09/01/2024 3:32 PM EDT Narrative [facility] - 09/01/2024 7:10 PM EDT Free T4 Trimester Specific Ranges 1st Trimester 0.9 - 1.50 ng/dL 2nd Trimester 0.7 - 1.40 ng/dL 3rd Trimester 0.7 - 1.24 ng/dL Jerrica Caicedo DO LAB BLOOD ORDERABLES Final Result Performing Organization Address City/[facility] [place] [address] from Last 3 Months Insurance AETNA [facility] MEDICAID [employer] MEDICARE Care Teams Fox Farmer Relationship Specialty Start Date End Date Orville Spann MD [address] [place] [address] PCP - General 07/07/20
--- OUTSIDE RECORDS SUMMARY | 2024-09-27 08:29 | XMS_ITS | Referral Summary ---
Author Organization [employer] ([place], [place] Address [address] [place] [address] Care Team Providers Care Machine Filler Servicer Name Role Phone Edinson Aguirre MD Primary Care Provider [phone] Allergies No known active allergies Medications baclofen [...] Date Prashant rded Speak language other than Sri Lankan at home Not on file 07/17/2023 Want [...] Plan of Treatment Not on file Insurance [facility] MEDICARE O AETNA [facility] Advance Directives For more information, please contact: [phone] * Full Code (Latest Code Status on File) Date Activated Date Inactivated Comments 11/17/2023 11:40 AM 11/19/2023 2:39 PM Care Teams Machine Filler Servicer Relationship Specialty Start Date End Date Edinson Aguirre MD PCP - General Infectious Disease 07/23/23
--- OUTSIDE RECORDS SUMMARY | 2024-09-27 08:29 | XMS_ITS | Encounter Summary ---
Author Organization [facility] Address [address] [place] [address] Care Team Providers Care Terrazzo Mechanic Helper Name Role Phone Orville Spann MD Primary Care Provider [phone] Encounter Details Date Type Department Care Team [...] Info) Description 09/30/2024 1:15 PM EDT Appointment [facility] Ultrasound [address] [place] [phone] documented as of this encounter Visit Diagnoses Not on filedocumented in this encounter Additional Health Concerns Assessment Noted Time A fall risk assessment has been complete d for the patient 06/24/2023 8:05 AM EDT A Body Mass Index follow-up plan has been documented for the patient 03/02/2024 4:04 PM EST documented as of this encounter Care Teams Terrazzo Mechanic Helper Relationship Specialty Start Date End Date Orville Spann MD [address] [place] [address] PCP - General 07/07/20 documented as of this encounter
--- OUTSIDE RECORDS SUMMARY | 2024-09-27 08:29 | XMS_ITS | Clinical Summary ---
Author Organization [employer] ([place], [place], [place], [place]) Address [address] [place] [address] Care Team Providers Care Barkeep Name Role Phone Edinson Aguirre MD Primary Care Provider [phone] Allergies No known active allergies Medications baclofen [...] Date Prashant rded Speak language other than Fijian at home Not on file 07/17/2023 Want [...] complete this topic Insurance [employer] [place] [id number] [employer] [facility] [place] Advance Directives For more information, please contact: [phone] * Full Code (Latest Code Status on File) Date Activated Date Inactivated Comments 11/17/2023 11:40 AM 11/19/2023 2:39 PM Care Teams Barkeep Relationship Specialty Start Date End Date Edinson Aguirre MD PCP - General Infectious Disease 07/23/23
--- OUTSIDE RECORDS SUMMARY | 2024-09-27 08:29 | XMS_ITS | Clinical Summary ---
Author Organization [facility] Address [address] [place] [address] Phone [email or web address] Care Team Providers Care Tourist Adviser Name Role Phone Provider, No Primary Care [...] Health Maintenance Due Date Last Done Comments Cervical Cancer Screening Combo 2001 Dental Cleaning/Exam 2001 HPV / Cotest 2001 Pap Testing 2001 HPV Immunization (1 - 3-dose series) 2016 Men B Immunization (1 of 2 - Standard) 2017 Hepatitis B Immunization (1 of 3 - 19+ 3-dose series) 2020 Tetanus Diphtheria and Pertu ssis Immunization (1 - Tdap) 2020 Covid-19 Immunization (1 - 2 -25 season) 2023 Influenza Immunization (#1) 2024 HIB [...] age to complete this topic Care Teams Tourist Adviser Relationship Specialty Start Date End Date Provider, [place] [address] PCP - General Teamcenter Consultant 05/11/20
--- OUTSIDE RECORDS SUMMARY | 2024-09-27 08:29 | XMS_ITS | Encounter Summary ---
Author Organization [facility] Address [address] [place] [address] Care Team Providers Care Concrete Buster Operator Name Role Phone Orville Spann MD Primary Care Provider [phone] Encounter Details Date Type Department Care Team (Late st Contact Info) Description 09/02/2024 Results Follow-Up [facility] [address] [place] [address] Jerrica Caicedo, DO [address] [facility] [address] [place] [address] Social History Tobacco Use Types [...] Info) Description 09/30/2024 1:15 PM EDT Appointment [facility]ound [address] [place] [address] documented as of this encounter Visit Diagnoses Not on filedocumented in this encounter Additional Health Concerns Assessment Noted Time A fall risk assessment has been complete d for the patient 06/24/2023 8:05 AM EDT A Body Mass Index follow-up plan has been documented for the patient 09/02/2024 8:03 AM EDT documented as of this encounter Care Teams Concrete Buster Operator Relationship Specialty Start Date End Date Orville Spann MD [address] [place] [address] PCP - General 07/07/20 documented as of this encounter
--- OUTSIDE RECORDS SUMMARY | 2024-09-27 08:29 | XMS_ITS | Encounter Summary ---
Author Organization [facility] Address [address] [place] [address] Care Team Providers Care Precision Devices Inspector/Tester Name Role Phone Orville Spann MD Primary Care Provider [phone] Encounter Details Date Type Department Care Team [...] Info) Description 09/30/2024 1:15 PM EDT Appointment [facility] Ultrasound [address] [place] [phone] documented as of this encounter Visit Diagnoses Not on filedocumented in this encounter Additional Health Concerns Assessment Noted Time A fall risk assessment has been complete d for the patient 06/24/2023 8:05 AM EDT A Body Mass Index follow-up plan has been documented for the patient 09/02/2024 8:03 AM EDT documented as of this encounter Care Teams Precision Devices Inspector/Tester Relationship Specialty Start Date End Date Orville Spann MD [address] [place] [address] PCP - General 07/07/20 documented as of this encounter
== END 2024-09-27 23:59 | disposition home or self-care (01) ==
LOC: RT 08:25
PROVIDERS: PCP Family Medicine; Visit Provider Student in an Organized Health Care Education/Training Program
DX: M79.605 Pain in left leg (principal); R60.0 Localized edema; F17.200 Nicotine dependence, unspecified, uncomplicated
CPT/HCPCS: 93971

== ENCOUNTER 2025-02-17 18:03 | Emergency (ER) | payer MEDICARE, OTHER, SELFPAY ==
[2025-02-17 18:09] VITALS: BP 125/87; PULSE 96; O2SAT 97
[2025-02-17 18:10] VITALS: BP 125/87; PULSE 96; RESP 18; TEMP 37.2; O2SAT 97; BMI 22.4
--- OUTSIDE RECORDS SUMMARY | 2025-02-17 18:20 | XMS_ITS | Referral Summary ---
Author Organization [employer] ([place], [place], [place], [place], [place]) Address [address] [place] [address] Care Team Providers Care Sports Internship Name Role Phone Edinson Aguirre MD Primary Care Provider [phone] Allergies No known active allergies Medications baclofen [...] Tremor 12/04/2021 SVT (supraventricular tachycardia) 07/18/2017 Immunizations Immunization Administration Dates Next Due Dtap,nos 06/21/2005, 3,01/05/2002,10/19,2001 HIB (PRP-OMP) 2001 HPV Quadrivalent 09/24/2013 HPV-9 09/11/2017 Hep B / HiB 07/15/2002,2001 Hepatitis A 09/11/2017,09/24/2013 Hepatitis B 2001 IPV 06/21/2005, 2,2001,08/06 Influenza Four-qiv Pf [...] Date Prashant rded Speak language other than [place] at home Not on file 07/17/2023 Want [...] Plan of Treatment Not on file Insurance [employer] MEDICARE HMO AETNA [facility] Advance Directives For more information, please contact: [phone] * Full Code (Latest Code Status on File) Date Activated Date Inactivated Comments 11/17/2023 11:40 AM 11/19/2023 2:39 PM Care Teams Sports Internship Relationship Specialty Start Date End Date Edinson Aguirre MD PCP - General Infectious Disease 07/23/23
--- OUTSIDE RECORDS SUMMARY | 2025-02-17 18:20 | XMS_ITS | Clinical Summary ---
Author Organization [employer] ([place], [place], [place], [place], [place]) Address [address] [place] [address] Care Team Providers Care Ornamental Metal Worker Apprentice Name Role Phone Edinson Aguirre MD Primary Care Provider [phone] Allergies No known active allergies Medications baclofen [...] Date Prashant rded Speak language other than Citizen [place] at home Not on file 07/17/2023 Want [...] 09/25/2023 09/24/2013, 06/21/2005, 09/22/2002, Additional history exists Medicare Initial AWV [id number] 05/26/2024 COVID-19 VACCINE (1 - season) 2024 Influenza Vaccine (#1) 2024 Tobacco Cessation Counseling and Screening (12+) 11/05/2024 11/06/2023 Pneumococcal Vaccine: 0-49 Years Aged Out 07/15/2002, 01/05/2002, 2001, Additional history exists No longer eligible based on patient's age to complete this topic Insurance [address] [id number] [facility] MEDICARE HMO A[employer]NA [employer] [facility] [place] [address] [id number] Advance Directives For more information, please contact: [phone] * Full Code (Latest Code Status on File) Date Activated Date Inactivated Comments 11/17/2023 11:40 AM 11/19/2023 2:39 PM Care Teams Ornamental Metal Worker Apprentice Relationship Specialty Start Date End Date Edinson Aguirre MD PCP - General Infectious Disease 07/23/23
--- OUTSIDE RECORDS SUMMARY | 2025-02-17 18:20 | XMS_ITS | Clinical Summary ---
Author Organization [facility] Address [address] [place] [address] Care Team Providers Care Server Developer Name Role Phone Blade Tang DO Primary Care Provider [phone] Allergies No known active allergies Medications nadolol [...] 12/18/2023 2:21 PM EDT Plan of Treatment Health Maintenance Due Date Last Done Comments Annual Gynecologic Pelvic an d Breast Exam 2001 MENINGOCOCCAL B VACCINE (1 o f 2 - Standard) 2017 ANNUAL WELLNESS VISIT 06/06/2020 HEPATITIS C SCREENING 06/06/2020 Pneumococcal Vaccine 0-49 (1 of 2 - PCV) 2020 07/15/2002, 01/05/2002, 2001, Additional history exists PAP SMEAR 2022 TDAP/TD VACCINES (2 - Td or Tdap) 09/25/2023 014 INFLUENZA VACCINE 09/24/2024 12/11/2017, , 01/17/2010 HPV VACCINES Completed 09/11/2017, 09/24/2013 Insurance [facility] HU[employer]NA MEDICARE ADVANTAGE SNP HMO Care Teams Server Developer Relationship Specialty Start Date End Date Blade Tang DO [address] [place] [address] ARABELLA BHAT [id number] PCP - General Internal Medicine 06/09/23
--- OUTSIDE RECORDS SUMMARY | 2025-02-17 18:20 | XMS_ITS | Clinical Summary ---
Author Organization [facility] Address [address] [place] [id number] Phone [email or web address] Care Team Providers Care Butadiene Converter Utility Operator Name Role Phone Provider, No Primary Care [...] Screening Combo 2001 Dental Cleaning/Exam 2001 HPV only / HPV + Pap 2001 Pap only testing 2001 HPV Immunization (1 - 3-dose series) 2016 Men B Immunization (1 of 2 - Standard) 2017 Hepatitis B Immunization (1 of 3 - 19+ 3-dose series) 2020 Tetanus Diphtheria and Pertu ssis Immunization (1 - Tdap) 2020 Covid-19 Immunization (1 - 2 - season) 2024 Influenza Immunization (#1) 2024 HIB Immunization Aged Out No longer e ligible based on patient's age to complete this topic Hepatitis A Immunization Aged Out No longer eligible based on patient's age to complete this topic Meningococcal Immunization Aged Out N o longer eligible based on patient's age to complete this topic Pneumococcal Immunization Aged Out No longer eligible based on patient's age to complete this topic Polio Immunization Aged Out No longer eligible based on patient's age to complete this topic Varicella Immunization Aged Out No lo nger eligible based on patient's age to complete this topic Care Teams Butadiene Converter Utility Operator Relationship Specialty Start Date End Date Provider, Rosa ELLINGTONWARABELLA Stack [address] PCP - General Burrito Maker 05/11/20
--- OUTSIDE RECORDS SUMMARY | 2025-02-17 18:20 | XMS_ITS | Clinical Summary ---
Author Organization [facility] Address [address] [place] [address] Care Team Providers Care Tableau Analyst Name Role Phone Orville Spann MD Primary Care Provider [phone] Allergies No known active allergies Medications dilTIAZem [...] Problem Noted Date Diagnosed Date Seizure 06/24/2023 Sleep disturbance 04/01/2022 Hyperthyroidism 12/04/2021 Night sweats 12/04/2021 Palpitation 12/04/2021 Pharyngoesophageal dysphagia 12/04/2021 Tremor 12/04/2021 Anxiousness 12/04/2021 Other constipation 12/04/2021 Resolved Problems Problem Noted Date Diagnosed Date Resolved Date Weight loss 04/01/2022 11/14/2024 Chest pain 12/04/2021 11/14/2024 Cold intolerance 12/04/2021 11/14/2024 Family History Medical History Relation Name Comments Conversions - Other Father Tobacco abuse Epilepsy Mother Relation Name Status Comments Father Mother Social History Tobacco Use Types Packs/Day Years Used Date Smoking Tobacco: Every Day Cigarettes 0 Last attempted to quit: 2020 Smokeless Tobacco: [...] 09/01/2024 2:33 PM EDT Plan of Treatment Health Maintenance Due Date Last Done Comments [facility]-HIV Screening 2001 [facility]-Hepatitis C Screening 2001 [facility]-Medicare Annual Wellness (AWV) 2001 [facility]-/Child/Adol SDOH Screenings 2001 [facility]- SDOH Screenings 06/21/2019 [facility]-Adult SDOH Screenings 06/21/2019 [facility]-Pneumococcal Vaccine: Pediatrics (0 to 5 Years) and At-Risk Patients (6 to 49 Years) (1 of 2 - PCV) 2020 07/15/2002, 01/05/2002, 2001, Additional history exists [facility]-Pap Smear 2022 [facility]-DTaP,Tdap,and Td Vaccines (7 - Td or Tdap) 09/25/2023 09/24/2013, 06/21/2005, 09/22/2002, Additional history exists OEP-EDFMJ-14 Vaccine (1 - season) 2024 [facility]-Influenza Vaccine (#1) 10/25/202412/11, 11/17/2014, 01/17/2010 [facility]-Depression Screening 10/27/2024 10/28/2023 [facility]-Zoster Vaccines (1 of 2) 06/21/2051 09/24/2013, 07/15/2002 [facility]-HIB Vaccines Completed 07/15/2002, , 2001 [facility]-Hepatitis B Vaccines Completed 003, 2001, 2001 [facility]-IPV Vaccines Completed 06/21/2005, 01/2002, 2001, Additional history exists [facility]-Varicella Vaccines Completed 09/24/2013, 2002 HPV Vaccines Completed 09/11/2017, 09/24/2013 [facility]-Hepatitis A Vaccines Completed 09/11/2017, 080 02/2013 [facility]-Rotavirus Vaccines Aged Out No lo nger eligible based on patient's age to complete this topic Insurance [employer] HUMANA MEDICARE Care Teams Tableau Analyst Relationship Specialty Start Date End Date Orville Spann MD [address] [place] [id number] PCP - General 07/07/20
--- NOTE | 2025-02-17 18:21 | ED_ITS ---
<Statement entered by Sen Bradshaw DO - 02/18/25 01:59> I was consulted by the EVELINE, and we discussed the complexity of problems being addressed. I approved the treatment and management plan for this patient's care in the emergency department, thus performing a substantive portion of the medical decision making. Sen Bradshaw DO This is Dr. Bradshaw. I independently evaluated this patient as well. She tells me that she has a history of frequent otitis media. For the last couple of days she has had decreased hearing acuity out of the right ear as well as pain in the right ear. On examination she has mild erythema of the TM on the right with a purulent rim at the bottom of the TM. Additionally, the patient pointed out during my examination that she was having pain in the mastoid region. She has significant tenderness to palpation of the mastoid, however there is no overlying erythema or asymmetric bulging of the ears to suggest overt mastoiditis. Given this physical exam finding of significant tenderness of the mastoid bone we decided to proceed with a CT scan of the temporal bones with IV contrast. This was interpreted by radiology and was ultimately read as no acute findings. Given that there is no CT evidence of mastoiditis, bony erosions, or abscesses within the brain I do not feel that she necessitates further workup. Patient was ultimately discharged home with diagnosis of acute otitis media on antibiotic therapy Discharge Plan Disposition Patient Disposition: Home, Self-Care Prescriptions Prescriptions: New amoxicillin-pot clavulanate 875-125 mg tablet 1 tab PO Q12H Qty: 14 0RF No Action propranolol 120 mg capsule,extended release 24 hr 120 mg PO DAILY Qty: 30 5RF desvenlafaxine succinate [Pristiq] 50 mg tablet extended release 24 hr 50 mg PO DAILY Qty: 30 1RF (DME) blood pressure monitor Kit See Rx Instructions .ROUTE .MEDSUPPLY Qty: 1 0RF Rx Instructions: As directed Nexplanon 68 mg implant 1 implant subdermal DIRECTED omeprazole 20 mg capsule,delayed release(DR/EC) See Rx Instructions .ROUTE .COMPLEX Qty: 90 2RF Dose Instruction: TAKE ONE CAPSULE BY MOUTH EVERY DAY Rx Instructions: TAKE ONE CAPSULE BY MOUTH EVERY DAY diltiazem HCl 180 mg capsule,extended release 24hr See Rx Instructions .ROUTE .COMPLEX Qty: 90 3RF Dose Instruction: Take 1 capsule by mouth once daily Rx Instructions: Take 1 capsule by mouth once daily Referrals Follow up/Referrals: Wilma Infante APRN [Primary Care Provider, Family Practice] - See instructions Clinical Impressions Clinical Impression: Otitis media, Sinusitis Stand Alone Forms Stand Alone Forms: Work/School Release Print Language Print Language: Yoruba Discharge ED Provider: Sen Bradshaw General Adult HPI General Chief complaint: Ear Stated complaint: Right earache Time Seen by Provider: 02/17/25 18:07 Mode of Arrival: Ambulatory Source of Information: Patient Description of Symptoms (Recalled from ER Triage Doc. by RN): Patient reports right ear pain x 3 days. States it is difficult to hear, swollen and painful to touch. History of Present Illness HPI narrative: Annalise Rao is a 24-year-old female who presents emergency room tonight with complaints of right ear pain. Patient reports her ear started hurting about 3 days ago. Denies any trauma to the ear. No drainage noted from the ear. Does state it is a bit harder to hear out of the right ear. Does not have a history of frequent ear infections. States she has not put anything inside her ear to poke or debride her ear. No headache noted. Denies any cough, fever, chest pain, shortness of breath, abdominal pain. No complaints at this time. Please note that the above description of symptoms, and this electronic medical record under categorization of recalled from ER triage doctor by RN are reflective of an initial nursing assessment, however, is not reflective of my full history and physical exam that was personally taken and clarified. Consequentially, this proceeding description of symptoms, which may include the patient's cauterized chief complaint in the EMR, do not reflect my personal clinical impression, and the ultimate description of the history of present illness stated complaints should be deferred to this section of this note. Unless stated otherwise were congruent with the section of the note, additional signs, symptoms, or incongruence can be interpreted as in or accurate with my clinical impression. Related Data Home Medications ?Medication ?Instructions ?Recorded ?Confirmed etonogestrel 68 mg subdermal 1 implant subdermal DI RECTED 01/05/24 11/24/24 implant (Nexplanon) Previous Rx's ?Medication ?Instructions ?Recorded blood pressure monitor #1 ea 10/01/23 propranolol 120 mg capsule,24 120 mg PO DAILY #30 caps 04/08/24 hr,extended release omeprazole 20 mg capsule,delayed See Rx Instructions . Route 05/28/24 release .COMPLEX #90 caps diltiazem HCl 180 mg See Rx Instructions .Route 0 09/27/24 capsule,extended release 24 hr .COMPLEX #90 caps desvenlafaxine succinate 50 mg 50 mg PO DAILY #30 tabs 11/24/24 tablet,extended release 24 hr (Pristiq) amoxicillin 875 mg-potassium 1 tab PO Q12H #14 tabs clavulanate 125 mg tablet Allergies Allergy/AdvReac Type Severity Reaction Status Date / Time No Known Allergies Allergy Verified 11/24/24 12:51 [facility] Disclaimer: The information contained in this section may have been updated after the patient was seen, as this information can be updated by other users. Medical History Encounter for insertion of subdermal contraceptive Viral syndrome Encounter for loop recorder at end of battery life UTI (urinary tract infection) Pharyngitis Acute viral syndrome Encounter for laboratory testing for COVID-19 virus Breast mass, right SCIWORA (spinal cord injury without radiographic abnormality) Cervical radiculopathy Seizure Dehydration Influenza Anxiety and depression History of gastroesophageal reflux (GERD) Hyperthyroidism Reactive airway disease with acute exacerbation SVT (supraventricular tachycardia) Palpitations Surgical History History of loop recorder History of esophagogastroduodenoscopy (EGD) Family History Other Cancer Heart disease Seizures Social History Smoking Status: Current every day smoker tobacco type: e-cigarettes second hand exposure: No alcohol intake: never substance use type: other details: [employer] current occupational status: other Travel in the last 8 weeks?: None household members: significant other housing: house caffeine: Yes Have you lived/traveled outside US in past 30 days?: No Contact w/someone who lives/traveled outside US past 30 days?: No Exposure to someone with infectious disease in past 14 days?: No Do you have a fever (greater than 100.4 F or 38 C)?: No Have you tested positive for COVID-19?: No Exposed to someone with COVID-19 in past 14 days?: No Do you have a sore throat?: No Do you have a cough?: No Do you have any weakness?: No Do you have any diarrhea?: No Are you experiencing any unusual bleeding?: No Do you have any muscle aches/pain?: No Do you have any abdominal pain?: No Are you experiencing loss of taste or smell?: No Other Medical History Have you received the Flu Vaccine for this season: No Have you received the Pneumonia Vaccine: No ROS Obtained: Yes All systems reviewed & no additional complaints except as documented Physical Exam General General appearance: alert and in no apparent distress Head Head exam: atraumatic, normocephalic and normal inspection Eye Eye exam: Present normal appearance, PERRL and EOMI ENT ENT exam: Present normal exam, normal oropharynx, mucous membranes moist, TM's normal bilaterally (Right tympanic membrane with erythema) and normal external ear exam Neck Neck exam: Present normal inspection, full ROM and trachea midline; Absent meningismus or lymphadenopathy Chest Chest inspection: Present normal inspection and symmetric chest wall rise; Absent tenderness Respiratory Respiratory exam: Present normal lung sounds bilaterally; Absent respiratory distress Cardiovascular Cardiovascular exam: Present regular rate and normal rhythm; Absent JVD Abdominal Exam Abdominal exam: Present soft and normal bowel sounds; Absent distention, tenderness or guarding Extremities Exam Extremities exam: Present normal inspection, full ROM and normal capillary refill; Absent calf tenderness Back Exam Back exam: Present normal inspection; Absent tenderness Neurological Exam Neurological exam: Present alert and oriented X3 Psychiatric Psychiatric exam: Present normal affect and normal mood Skin Skin exam: Present warm, dry, intact and normal color Lymphatic Lymphatic Findings: no adenopathy Medical Decision Making Medical Records Screening: Per USPSTF and CDC recommendations, given the prevalence of disease in our region, it is our hospital?s policy to screen for HIV and viral Hepatitis for all patients aged 18 and over and those with ongoing risk factors. Colt Inquiry Pt receiving controlled substance: No Vital Signs: 02/17/25 18:09 02/17/25 18:10 02/17/25 18:32 Temperature 99.0 F Temperature Source Oral Pulse Rate 96 H 84 Pulse Rate [Radial] 96 H Respiratory Rate 18 Blood Pressure 125/87 131/68 Blood Pressure [Right Arm] 125/87 Blood Pressure Mean [Right Arm] 99 Blood Pressure Source [Right Arm] Automatic Cuff Blood Pressure Position [Right Arm] Sitting 02 Sat by Pulse Oximetry 97 97 100 Oxygen Delivery Method Room Air 02/17/25 18:38 Temperature Temperature Source Pulse Rate 68 Pulse Rate [Radial] Respiratory Rate Blood Pressure 113/81 Blood Pressure [Right Arm] Blood Pressure Mean [Right Arm] Blood Pressure Source [Right Arm] Blood Pressure Position [Right Arm] 02 Sat by Pulse Oximetry 100 Oxygen Delivery Method Lab Data Lab Results 02/17/25 18:38: WBC 7.6, RBC 4.43, Hgb 13.0, Hct 38.4, MCV 86.7, MCH 29.3, MCHC 33.9, RDW 12.5, Plt Count 454 H, MPV 10.3, Neut % (Auto) 58.4, Lymph % (Auto) 31.2, Bath % (Auto) 8.7, Eos % (Auto) 0.9, Baso % (Auto) 0.5, Neut # (Auto) 4.5, Lymph # (Auto) 2.4, Bath # (Auto) 0.7, Eos # (Auto) 0.1, Baso # (Auto) 0.0, ESR 10, Sodium 139, Potassium 3.6, Chloride 106, Carbon Dioxide 24, Anion Gap 12.6, BUN 10, Creatinine 0.70, Estimated Creat Clear 121, Estimated GFR 104, Est GFR ( Amer) 125, Glucose 92, Calcium 9.7, Total Bilirubin 0.7, AST 40 H, ALT 40, Alkaline Phosphatase 100, C-Reactive Protein < 0.3, Total Protein 7.6, Albumin 4.7, Globulin 2.9, Albumin/Globulin Ratio 1.6, HCG, Quant < 2 02/17/25 18:38 02/17/25 18:38 Orders (Tests/Meds): ED MEDICATIONS Discontinued Medications Generic Name Dose Route Start Last Admin Trade Name Freq PRN Reason Stop Dose Admin Amoxicillin/Clavulanate Potassium 1 each 02/17/25 21:25 02/17/25 21:34 Amoxicillin/Clavulanate Potassium 875/125mg Tablet PO 02/17/25 21:26 1 each ONCE ONE Administration Ibuprofen 800 mg 02/17/25 20:47 02/17/25 20:50 Ibuprofen 800 Mg Tablet PO 02/17/25 20:48 800 mg ONCE ONE Administration Iopamidol 75 ml 02/17/25 20:16 02/17/25 20:17 Iopamidol-370 (76%);100ml Bottle IV 02/17/25 20:17 75 ml ONCE ONE Administration Sodium Chloride 10 ml 02/17/25 20:16 02/17/25 20:17 Sodium Chloride 0.9% 10ml Syr (Rad Only) IV 02/17/25 20:17 10 ml ONCE ONE Administration ORDERS Category Date Time Status CT Temporal bone With Stat Cat Scan 02/17/25 18:29 Completed Beta HCG, Quant [HCG,Quantitative] Stat Lab 02/17/25 18:38 Completed CBC w/Auto Diff [Complete Blood Count Auto Diff] Stat Lab 02/17/25 18:38 Completed CMP [Comprehensive Metabolic Panel] Stat Lab 02/17/25 18:38 Completed CRP [C-Reactive Protein] Stat Lab 02/17/25 18:38 Completed ESR [Erythrocyte Sedimentation Rate] Stat Lab 02/17/25 18:38 Completed Medical Decision Narrative: In summary patient is an 24-year-old female who presents emergency department for evaluation of right ear pain. No drainage from the ear. States has a bit harder to hear out of the right ear, symptoms been ongoing for about 3 days. No fever noted.. Patient is hemodynamically stable upon arrival, afebrile. Unremarkable nonfocal physical exam except for erythema noted in the right tympanic membrane.. Differential diagnosis includes ear infection, tympanic membrane rupture, sinusitis. Initial workup will be conducted with physical exam of the right ear. CT of the temporal bones with contrast was subsequently ordered. Initial interventions include multimodal pain management with Motrin. Initial workup reviewed by [facility] hematologic labs unremarkable. CT of the temporal bones with contrast was nonactionable. Upon repeat evaluation patient continued to have some mild ear pain but Motrin did help with this.. Given this patient appropriate for discharge at this time. She was discharged with a prescription of Augmentin for 7 days for sinusitis and acute otitis media. She was given return precautions to the ER should her ear have further drainage, worsening hearing, or any other symptoms she feels she needs to be evaluated for. Critical Care Critical Care Time Critical Care Time: No
--- NOTE | 2025-02-17 18:29 | CT_ITS ---
PROCEDURE INFORMATION: Exam: CT Temporal Bones Without Contrast. Exam date and time: 02/17/2025 8:09 PM Age: 24 years old Clinical indication: Pain; Other: Ear; Additional info: Tenderness R mastoid region TECHNIQUE: Imaging protocol: Computed tomography of the temporal bones without contrast. Radiation optimization: All CT scans at this facility use at least one of these dose optimization techniques: automated exposure control; mA and/or kV adjustment per patient size (includes targeted exams where dose is matched to clinical indication); or iterative reconstruction. COMPARISON: MR HEAD/BRAIN WO/W CON 07/03/2023 4:50 PM FINDINGS: Right inner ear: Normal. Right ossicles and middle ear: Normal. The middle ear ossicles are intact. Right external auditory canal: Normal. Right facial nerve canal: Normal. Right jugular foramen: No jugular dehiscence. Right carotid canal: No aberrant carotid canal. Right mastoid air cells: Normal. No mastoid effusions. Left inner ear: Normal. Left ossicles and middle ear: Normal. The middle ear ossicles are intact. Left external auditory canal: Normal. Left facial nerve canal: Normal. Left jugular foramen: No jugular dehiscence. Left carotid canal: No aberrant carotid canal. Left mastoid air cells: Normal. No mastoid effusions. Soft tissues: Unremarkable. IMPRESSION: No acute findings.
[2025-02-17 18:32] VITALS: BP 131/68; PULSE 84; O2SAT 100
[2025-02-17 18:38] VITALS: BP 113/81; PULSE 68; O2SAT 100
[2025-02-17 18:58] LABS: Hematocrit 38.4 % (37.0-47.0); Hemoglobin 13.0 g/dL (12.2-16.2); Immature Granulocytes % 0.3 %; Mean Corpuscular HGB Conc 33.9 g/dL (31.8-35.4); Mean Corpuscular Hemoglobin 29.3 pg (27.0-31.2); Mean Corpuscular Volume 86.7 fl (81-99); Nucleated Red Blood Cells % 0 %; Platelet Count 454 K/mm3 (142-424); Red Blood Count 4.43 M/mm3 (4.20-5.40); Red Cell Distribution Width-SD 39.8 fL; White Blood Count 7.6 K/mm3 (4.8-10.8)
[2025-02-17 19:10] LABS: Albumin Level 4.7 g/dl (3.5-5.0); Chloride 106 mmol/L (98-107); Potassium 3.6 mmoL/L (3.5-5.1); Sodium 139 mmol/L (136-145)
[2025-02-17 19:13] LABS: Alanine Aminotransferase 40 U/L (12-78); Albumin/Globulin Ratio 1.6 (1.1-1.8); Alkaline Phosphatase 100 U/L (38-126); Anion Gap 12.6 mEq/L (5-15); Aspartate Amino Transferase 40 U/L (14-36); Bilirubin,Total 0.7 mg/dl (0.2-1.3); Blood Urea Nitrogen 10 mg/dl (7-17); Carbon Dioxide 24 mmol/L (22.0-30.0); Creatinine Clearance Estimated 121 mL/min (50-200); Creatinine,Serum 0.70 mg/dl (0.52-1.04); Estimated Glomerular Filt Rate 104 ml/min (>60); GFR (African American) 125 ML/MIN (>60); Globulin 2.9 g/dL (1.3-3.2); Total Protein,Serum 7.6 g/dl (6.3-8.2)
[2025-02-17 19:14] LABS: Calcium 9.7 mg/dl (8.4-10.2); Glucose 92 mg/dl (74-100)
[2025-02-17 19:27] LABS: C-Reactive Protein < 0.3 mg/L (0-4)
[2025-02-17] MEDS: SODIUM CHLORIDE 0.9% 10ML SYR (RAD ONLY) 10 ML IV (20:17)
[2025-02-17] MEDS: IOPAMIDOL-370 (76%);100ML BOTTLE 75 ML IV (20:17)
[2025-02-17] MEDS: IBUPROFEN 800 MG TABLET PO (20:50)
[2025-02-17] MEDS: AMOXICILLIN/CLAVULANATE POTASSIUM 875/125MG TABLET 1 EACH PO (21:34)
[2025-02-17 21:40] VITALS: BP 113/81; PULSE 68; RESP 18; TEMP 36.8; O2SAT 100
[2025-02-17 21:43] VITALS: BP 115/81; PULSE 62; RESP 18; TEMP 36.8; O2SAT 100
== END 2025-02-17 21:43 | disposition home or self-care (01) ==
PROVIDERS: Nurse Practitioner Acute Care; Emergency Provider Student in an Organized Health Care Education/Training Program; PCP Family Medicine
DX: H66.91 Otitis media, unspecified, right ear (principal); F17.290 Nicotine dependence, other tobacco product, uncomplicated
CPT/HCPCS: 70481; 80053; 84702; 85025; 85651; 86140; 99284; Q9967